=== PATIENT | male | born 1965 | race Caucasian/White ===

== ENCOUNTER 2020-11-06 12:20 | Outpatient (REF) | payer OTHER, SELFPAY ==
[2020-11-06 14:14] LABS: Estimated Average Glucose 126 mg/dL
[2020-11-06 14:39] LABS: Alanine Aminotransferase 27 U/L (0-40); Albumin Level 4.7 g/dL (3.5-5.0); Alkaline Phosphatase 89 U/L (39-117); Anion Gap 14 (12-20); Aspartate Amino Transferase 17 U/L (5-37); Bilirubin Total 0.2 mg/dL (0.0-1.0); Blood Urea Nitrogen 15 mg/dL (9-16); Calcium 9.5 mg/dL (8.4-10.2); Carbon Dioxide 26 mmol/L (22-29); Chloride 102 mmol/L (96-108); Cholesterol 141 mg/dL; Estimated Glomerular Filt Rate > 60; Glucose Fasting 101 mg/dL (60-99); HDL Cholesterol 49 mg/dL; LDL Cholesterol Calculated 74 mg/dl; Potassium 4.5 mmol/L (3.3-5.1); Sodium 137 mmol/L (135-145); Total Protein 7.4 g/dL (6.5-8.0); Triglycerides 91 mg/dL
== END 2020-11-06 12:21 | disposition home or self-care (01) ==
LOC: HO.LAB 12:20
PROVIDERS: PCP Internal Medicine; Visit Provider Internal Medicine
DX: E11.9 Type 2 diabetes mellitus without complications (principal); D75.89 Other specified diseases of blood and blood-forming organs; E78.5 Hyperlipidemia, unspecified
CPT/HCPCS: 36415; 80053; 80061; 83036

== ENCOUNTER 2021-06-14 08:39 | Day surgery (SDC) | payer OTHER, SELFPAY ==
--- NOTE | 2021-06-13 10:51 | HO.ANESPROP2 ---
Documented by User: Vivi Aguilar NP 06/13/21 10:51 HPI - Anesthesia Eval Consult details Narrative: 55yo M for Colonoscopy PMFSH Active Problems Active Problems: All Active Problems (Updated 06/07/21 @ 13:18 by Alaina Long, ALIA) Obesity, Class I, BMI 30.0-34.9 (see actual BMI) (Acute) Obese (Acute) Paranoid schizophrenia (Acute) Pure hypercholesterolemia (Acute) Essential hypertension (Acute) Diabetes mellitus (Acute) Past Medical History Medical History Diabetes mellitus Essential hypertension History of iron deficiency anemia Hx of colonic polyps Obese Obesity, Class I, BMI 30.0-34.9 (see actual BMI) Paranoid schizophrenia Pure hypercholesterolemia Family History Family History Father No problems noted. Mother No problems noted. Maternal Grandmother No problems noted. Maternal Grandfather No problems noted. Paternal Grandmother No problems noted. Paternal Grandmother No problems noted. Surgical History Surgical History History of nasal surgery History of oral surgery Hx of colonoscopy Social History Social History Housing: Apartment Patient Tobacco Use Status: Never used Tobacco e-Cigarette/Vaping Use: Never Used Second Hand Smoke Exposure: No Use of substances other than those prescribed or required for medical reasons: No Are you DNR?: No Advance Directives: No Advance Directives Information Provided: Yes Recently lost weight without trying: No Nutrition Risks: No Nutritional Risk service: No Current occupational status: disabled Meds Allergies Allergy/AdvReac Type Severity Reaction Status Date / Time simvastatin [SIMVASTATIN] Allergy Intermediate INCREASES Verified 06/07/21 13:19 LIVER ENZYMES, increase liver enzymes divalproex sodium AdvReac Intermediate BLOATING Verified 06/07/21 13:19 [From DEPAKOTE] Home Medications Medication Instructions Recorded Confirmed Last Taken Type benztropine 1 mg tablet 1 mg PO DAILY 08/21/20 06/07/21 Unknown History buspirone 5 mg tablet 5 mg PO BID 08/21/20 06/07/21 Unknown History olanzapine 10 mg tablet 10 mg PO BID tab 08/21/20 06/07/21 Unknown History quetiapine 200 mg tablet 200 mg PO BEDTIME 08/21/20 06/07/21 Unknown History quetiapine 50 mg tablet (Seroquel) 50 mg PO BEDTIME 08/21/20 06/07/21 Unknown History oxcarbazepine 600 mg tablet 600 mg PO BID 12/18/20 06/07/21 Unknown History topiramate 25 mg tablet 25 mg PO BID 04/24/21 06/07/21 Unknown History topiramate 100 mg tablet 1 tab PO BEDTIME 06/07/21 06/07/21 Unknown History Exam Exam Date and Time: June 13, 2021 105 Assessment and Plan Assessment Anesthesia Assessment: Chart Reviewed Documented by User: Jessica Welch MD 06/14/21 09:19 [facility] Past Medical History Medical History Diabetes mellitus Essential hypertension History of iron deficiency anemia Hx of colonic polyps Obese Obesity, Class I, BMI 30.0-34.9 (see actual BMI) Paranoid schizophrenia Pure hypercholesterolemia Functional capacity: independent ambulation Family History Family History Father No problems noted. Mother No problems noted. Maternal Grandmother No problems noted. Maternal Grandfather No problems noted. Paternal Grandmother No problems noted. Paternal Grandmother No problems noted. Family history of problems with anesthesia: No Surgical History Surgical History History of nasal surgery History of oral surgery Hx of colonoscopy History of Problems with Anesthesia: No Social History Social History Housing: Apartment Patient Tobacco Use Status: Never used Tobacco e-Cigarette/Vaping Use: Never Used Second Hand Smoke Exposure: No Use of substances other than those prescribed or required for medical reasons: No Are you DNR?: No Advance Directives: No Advance Directives Information Provided: Yes Recently lost weight without trying: No Nutrition Risks: No Nutritional Risk service: No Current occupational status: disabled Meds Allergies Allergy/AdvReac Type Severity Reaction Status Date / Time simvastatin [SIMVASTATIN] Allergy Intermediate INCREASES Verified 06/07/21 13:19 LIVER ENZYMES, increase liver enzymes divalproex sodium AdvReac Intermediate BLOATING Verified 06/07/21 13:19 [From DEPAKOTE] Home Medications Medication Instructions Recorded Confirmed Last Taken Type benztropine 1 mg tablet 1 mg PO DAILY 08/21/20 06/07/21 Unknown History buspirone 5 mg tablet 5 mg PO BID 08/21/20 06/07/21 Unknown History olanzapine 10 mg tablet 10 mg PO BID tab 08/21/20 06/07/21 Unknown History quetiapine 200 mg tablet 200 mg PO BEDTIME 08/21/20 06/07/21 Unknown History quetiapine 50 mg tablet (Seroquel) 50 mg PO BEDTIME 08/21/20 06/07/21 Unknown History oxcarbazepine 600 mg tablet 600 mg PO BID 12/18/20 06/07/21 Unknown History topiramate 25 mg tablet 25 mg PO BID 04/24/21 06/07/21 Unknown History topiramate 100 mg tablet 1 tab PO BEDTIME 06/07/21 06/07/21 Unknown History Exam Airway Mallampati Class: III TM Dist: >3cm Neck ROM: Full Heart: RRR Lungs: CTAt Assessment and Plan Final Anesthetic Review Family History of Problems with Anesthesia: No History of Problems with Anesthesia: No
[2021-06-14 08:53] VITALS: BMI 28.7
[2021-06-14 09:10] VITALS: BP 118/82; PULSE 107; RESP 16; TEMP 36.4; O2SAT 93
[2021-06-14 09:12] LABS: Glucose, Whole Blood 164 mg/dL (60-115)
--- NOTE | 2021-06-14 09:15 | PC.NURSE ---
1200.00 and wallet sent to security
[2021-06-14] MEDS: Lactated Ringers 1,000 ML 100 ML IVCONT (09:24)
[2021-06-14 10:57] VITALS: BP 109/72; PULSE 87; RESP 16; TEMP 36.2; O2SAT 97
--- NOTE | 2021-06-14 10:58 | P.BOP_ITS ---
Brief Operative Note Date of Service: 06/14/21 Pre-op diagnosis: Screening Post-op diagnosis: other (Colon polyps) Procedure: Colonoscopy to the cecum and TI with bx/removal of polyps, and hot and cold snare polypectomies. Surgeon: Torres Olmos Anesthesia: MAC Was an Insurance Plan Specialist used for this Procedure?: No Estimated blood loss (mL): 4.0 Pathology: other (A. Polyps along ICV B. Ascending colon polyps C. Transverse colon polyp) Condition: stable Disposition: PACU
--- NOTE | 2021-06-14 11:03 | HO.ANESPROP2 ---
FORM[facility]LY [facility], LATER [facility] Active Problems Active Problems: All Active Problems (Updated 06/07/21 @ 13:18 by Alaina Long RN) Obesity, Class I, BMI 30.0-34.9 (see actual BMI) (Acute) Obese (Acute) Paranoid schizophrenia (Acute) Pure hypercholesterolemia (Acute) Essential hypertension (Acute) Diabetes mellitus (Acute) Past Medical History Medical History Diabetes mellitus Essential hypertension History of iron deficiency anemia Hx of colonic polyps Obese Obesity, Class I, BMI 30.0-34.9 (see actual BMI) Paranoid schizophrenia Pure hypercholesterolemia Functional capacity: independent ambulation Family History Family History Father No problems noted. Mother No problems noted. Maternal Grandmother No problems noted. Maternal Grandfather No problems noted. Paternal Grandmother No problems noted. Paternal Grandmother No problems noted. Family history of problems with anesthesia: No Surgical History Surgical History History of nasal surgery History of oral surgery Hx of colonoscopy History of Problems with Anesthesia: No Social History Social History Housing: Apartment Patient Tobacco Use Status: Never used Tobacco e-Cigarette/Vaping Use: Never Used Second Hand Smoke Exposure: No Use of substances other than those prescribed or required for medical reasons: No Are you DNR?: No Advance Directives: No Advance Directives Information Provided: Yes Recently lost weight without trying: No Nutrition Risks: No Nutritional Risk service: No Current occupational status: disabled Meds Allergies Allergy/AdvReac Type Severity Reaction Status Date / Time simvastatin [SIMVASTATIN] Allergy Intermediate INCREASES Verified 06/07/21 13:19 LIVER ENZYMES, increase liver enzymes divalproex sodium AdvReac Intermediate BLOATING Verified 06/07/21 13:19 [From DEPAKOTE] Active Medications: Current Medications Lactated Ringer's (Lr) 1,000 mls @ 100 mls/hr IVCONT .Q10H THEODORE Last Admin: 06/14/21 09:24 Dose: 100 mls/hr Documented by: Sodium Biphosphate/Sodium Phosphate (Sodium Phosphate,Osborne-Dibasic 133 Ml Enema) 133 ml VT ONCE PRN PRN Reason: Poor Colonoscopy Prep Results Home Medications Medication Instructions Recorded Confirmed Last Taken Type benztropine 1 mg tablet 1 mg PO DAILY 08/21/20 06/07/21 Unknown History buspirone 5 mg tablet 5 mg PO BID 08/21/20 06/07/21 Unknown History olanzapine 10 mg tablet 10 mg PO BID tab 08/21/20 06/07/21 Unknown History quetiapine 200 mg tablet 200 mg PO BEDTIME 08/21/20 06/07/21 Unknown History quetiapine 50 mg tablet (Seroquel) 50 mg PO BEDTIME 08/21/20 06/07/21 Unknown History oxcarbazepine 600 mg tablet 600 mg PO BID 12/18/20 06/07/21 Unknown History topiramate 25 mg tablet 25 mg PO BID 04/24/21 06/07/21 Unknown History topiramate 100 mg tablet 1 tab PO BEDTIME 06/07/21 06/07/21 Unknown History Exam Exam Date and Time: June 14, 2021 1103 Height,Weight and Vital Signs: Height 5 ft 10 in Weight 90.718 kg Last Vital Signs Temp 97.2 F 06/14/21 10:57 Pulse 87 06/14/21 10:57 Resp 16 06/14/21 10:57 BP 109/72 06/14/21 10:57 Pulse Ox 97 06/14/21 10:57 Pertinent Lab Results Pertinent Lab Results: Laboratory Tests 06/14/21 09:08 POC Glucose 164 H Assessment and Plan Final Anesthetic Review Family History of Problems with Anesthesia: No History of Problems with Anesthesia: No
[2021-06-14 11:12] VITALS: BP 113/82; PULSE 84; RESP 16; TEMP 36.2; O2SAT 96
--- NOTE | 2021-06-14 13:59 | HO.POSTANES ---
Post Anesthesia Evaluation Post Anesthesia Evaluation Vital Signs: Vital Signs Temp Pulse Resp BP Pulse Ox 06/14/21 11:12 97.2 F 84 16 113/82 96 06/14/21 10:57 97.2 F 87 16 109/72 97 06/14/21 09:10 97.6 F 107 H 16 118/82 93 Anesthesia: Monitored Mental Status: Awake Pain Control: Satisfactory Nausea/Vomiting: None Hydration: Adequate Anesthesia-Related Issues: No Anes. Related Issues
--- NOTE | 2021-06-14 21:30 | OP_ITS ---
SURGEON: Torres Olmos MD INDICATIONS: The patient presents for evaluation of personal history of tubular adenoma of the colon and colorectal cancer screening. Full consent has been obtained from him for this, including risks of bleeding and perforation. PREOPERATIVE DIAGNOSIS: POSTOPERATIVE DIAGNOSIS: PROCEDURE PERFORMED: Colonoscopy to the cecum and terminal ileum with snare polypectomy, and biopsy and removal of polyps. ESTIMATED BLOOD LOSS: COMPLICATIONS: ANESTHESIA: Monitored anesthesia care. ASSISTANTS: SPECIMENS: PREOPERATIVE DIAGNOSES: Colorectal cancer screening and personal history of tubular adenoma of the colon. POSTOPERATIVE DIAGNOSES: Colorectal cancer screening and personal history of tubular adenoma of the colon, colon polyps, diverticulosis and internal hemorrhoids. DESCRIPTION OF PROCEDURE: The patient was placed in the left lateral decubitus position. The digital rectal exam revealed no abnormalities. The Olympus video pediatric colonoscope was entered into the rectum and advanced easily to the cecum. Once in the cecum, I did identify normal-appearing cecal pouch with appendiceal orifice and a normal-appearing ileocecal valve. The terminal ileum was cannulated and appeared normal. Scope was withdrawn back in the colon. There was transillumination of light deep in the right lower quadrant. The entire cecum and ileocecal valve appeared normal. The scope was slowly withdrawn assessing all mucosal surfaces carefully. Preparation was excellent. Along the ileocecal valve, were 3 flat less than 5 mm polyps, which were each biopsied and completely removed with cold biopsy forceps and placed in the same container. In the proximal ascending colon, was a flat approximately 10 to 12 mm polyp, which was snared in piecemeal fashion and then recovered by suction. The polypectomy site appeared clean, without any sign of residual polyp nor bleeding. In the more distal ascending colon, was a flat approximately 5 or 6 mm polyp, which was removed with the cold snare completely, but not recovered. The polypectomy site appeared clean and there was no sign of any bleeding. In the transverse colon, was a flat approximately 4 mm polyp, which was biopsied and completely removed with cold biopsy forceps. In the more distal transverse colon, was a flat approximately 12 mm grossly adenomatous polyp, which was snared and removed, but not recovered. The polypectomy site appeared clean, without any sign of residual polyp nor bleeding. I did not visualize any other polyps, colitis, nor angiodysplasia. There was a moderate amount of sigmoid diverticulosis. In the rectum, scope was retroflexed visualizing internal hemorrhoids, but no other pathology. The rectal mucosa appeared normal. The scope was straightened out and withdrawn from the patient. He tolerated the procedure well and was returned to the recovery area in stable condition. IMPRESSION: 1. Colon polyps, status post biopsy and removal, hot snare polypectomy, and cold snare polypectomy. 2. Diverticulosis. 3. Internal hemorrhoids. PLAN: The results of the pathology will be checked. Given his history, I would recommend a repeat colonoscopy in 2 years. He was advised not to use any aspirin and NSAIDs for at least 1 week. The 2-day prep worked very well and he will have to do that again on the next colonoscopy. MD TRENTON Haile/DOUGIE / [id number]
== END 2021-06-14 12:00 | disposition home or self-care (01) ==
PROVIDERS: PCP Student in an Organized Health Care Education/Training Program; Visit Provider Internal Medicine
PROC: 0DJD8ZZ Inspection of Lower Intestinal Tract, Via Natural or Artificial Opening Endoscopic (ICD-10-PCS; CPT 45378; principal; 2021-06-14 09:50)
DX: Z12.11 Encounter for screening for malignant neoplasm of colon (principal); Z86.010 Personal history of colon polyps; D12.0 Benign neoplasm of cecum; D12.2 Benign neoplasm of ascending colon; D12.3 Benign neoplasm of transverse colon; K57.30 Diverticulosis of large intestine without perforation or abscess without bleeding; K64.8 Other hemorrhoids; F20.0 Paranoid schizophrenia; I10 Essential (primary) hypertension; E11.9 Type 2 diabetes mellitus without complications; Z79.84 Long term (current) use of oral hypoglycemic drugs; Z79.899 Other long term (current) drug therapy
CPT/HCPCS: 45385; 45380; 82947; 88305

== ENCOUNTER 2022-01-09 10:51 | Outpatient (REF) | payer OTHER, SELFPAY ==
[2022-01-09 11:40] LABS: MANUAL DIFF FLAG NO
[2022-01-09 12:09] LABS: Basophils Percent Auto 0.5 % (0-2); Eosinophils Absolute Auto 0.1 X10*3/uL (0.0-0.4); Eosinophils Percent Auto 1.2 % (0-4); Hematocrit 41.9 % (42.0-52.0); Hemoglobin 13.4 g/dl (14.0-18.0); Imm Gran Abs Auto 0.04 X10*3/uL (0.00-0.03); Imm Gran Pct Auto 0.7 % (0.0-0.4); Lymphocytes Absolute Auto 1.6 X10*3/uL (1.2-4.9); Lymphocytes Percent Auto 28.8 % (20-40); Mean Corpuscular Hemoglobin 27.2 pg (27.0-33.0); Mean Corpuscular Volume 85.2 fL (80.0-98.0); Mean Platelet Volume 9.7 fL (9.4-12.4); Monocytes Absolute Auto 0.5 X10*3/uL (0.1-1.2); Monocytes Percent Auto 8.3 % (2-11); Neutrophils Absolute Auto 3.4 x10*3/uL (2.0-8.3); Neutrophils Percent Auto 60.5 % (45-73); Platelet Count 283 X10*3/uL (160-400); Red Blood Count 4.92 X10*6/uL (4.60-5.80); Red Cell Distribution Width 14.4 % (11.0-16.0); White Blood Count 5.7 X10*3/uL (4.8-10.8)
[2022-01-09 12:14] LABS: Estimated Average Glucose 134 mg/dL; Hemoglobin A1c % 6.3 %
[2022-01-09 12:39] LABS: Alanine Aminotransferase 27 U/L (0-40); Albumin Level 4.4 g/dL (3.5-5.0); Alkaline Phosphatase 90 U/L (39-117); Anion Gap 14 (12-20); Aspartate Amino Transferase 19 U/L (5-37); Bilirubin Total 0.3 mg/dL (0.0-1.0); Blood Urea Nitrogen 19 mg/dL (9-16); Calcium 9.6 mg/dL (8.4-10.2); Carbon Dioxide 21 mmol/L (22-29); Chloride 110 mmol/L (96-108); Cholesterol 153 mg/dL; Estimated Glomerular Filt Rate > 60; Glucose Fasting 127 mg/dL (60-99); HDL Cholesterol 41 mg/dL; LDL Cholesterol Calculated 94 mg/dl; Potassium 4.6 mmol/L (3.3-5.1); Sodium 140 mmol/L (135-145); Total Protein 7.2 g/dL (6.5-8.0); Triglycerides 92 mg/dL
[2022-01-09 12:41] LABS: Thyroid Stimulating Hormone 0.79 uIU/mL (0.32-4.0)
[2022-01-14 14:22] LABS: Vitamin D 25-OH, D2 <4 ng/mL; Vitamin D 25-OH, D3 15 ng/mL; Vitamin D 25-OH, Total 15 ng/mL (30-100)
== END 2022-01-09 10:52 | disposition home or self-care (01) ==
LOC: HO.LAB 10:51
PROVIDERS: PCP Internal Medicine; Visit Provider Internal Medicine
DX: E11.40 Type 2 diabetes mellitus with diabetic neuropathy, unspecified (principal); E78.00 Pure hypercholesterolemia, unspecified; E55.9 Vitamin D deficiency, unspecified; E78.5 Hyperlipidemia, unspecified; E66.9 Obesity, unspecified
CPT/HCPCS: 36415; 80053; 80061; 82306; 83036; 84443; 85025

== ENCOUNTER 2022-01-29 13:40 | Outpatient (REF) | payer OTHER, SELFPAY ==
[2022-01-29 14:29] LABS: Creatinine Urine 145.82 mg/dL; Microalbum/Creatinine Ratio Ur 4.1 ug/mg cr
== END 2022-01-29 13:41 | disposition home or self-care (01) ==
LOC: HO.LNP 13:40
PROVIDERS: Visit Provider Internal Medicine
DX: E11.9 Type 2 diabetes mellitus without complications (principal)
CPT/HCPCS: 82043

== ENCOUNTER 2022-10-27 10:54 | Outpatient (REF) | payer OTHER, SELFPAY ==
[2022-10-27 11:04] LABS: MANUAL DIFF FLAG NO
[2022-10-27 12:10] LABS: Basophils Percent Auto 0.8 % (0-2); Eosinophils Absolute Auto 0.1 X10*3/uL (0.0-0.4); Eosinophils Percent Auto 1.5 % (0-4); Hematocrit 43.4 % (42.0-52.0); Hemoglobin 14.3 g/dl (14.0-18.0); Imm Gran Abs Auto 0.01 X10*3/uL (0.00-0.03); Imm Gran Pct Auto 0.2 % (0.0-0.4); Lymphocytes Absolute Auto 1.8 X10*3/uL (1.2-4.9); Lymphocytes Percent Auto 34.3 % (20-40); Mean Corpuscular HGB Conc 32.9 g/dl (31.0-36.0); Mean Corpuscular Hemoglobin 28.3 pg (27.0-33.0); Mean Corpuscular Volume 85.9 fL (80.0-98.0); Mean Platelet Volume 9.6 fL (9.4-12.4); Monocytes Absolute Auto 0.5 X10*3/uL (0.1-1.2); Monocytes Percent Auto 8.8 % (2-11); Neutrophils Absolute Auto 2.9 x10*3/uL (2.0-8.3); Neutrophils Percent Auto 54.4 % (45-73); Platelet Count 285 X10*3/uL (160-400); Red Blood Count 5.05 X10*6/uL (4.60-5.80); Red Cell Distribution Width 14.4 % (11.0-16.0); White Blood Count 5.3 X10*3/uL (4.8-10.8)
[2022-10-27 13:02] LABS: Alanine Aminotransferase 39 U/L (0-40); Albumin Level 4.5 g/dL (3.5-5.0); Alkaline Phosphatase 91 U/L (39-117); Anion Gap 12 (12-20); Aspartate Amino Transferase 23 U/L (5-37); Bilirubin Total 0.5 mg/dL (0.0-1.0); Blood Urea Nitrogen 17 mg/dL (9-16); Calcium 9.1 mg/dL (8.4-10.2); Carbon Dioxide 21 mmol/L (22-29); Chloride 110 mmol/L (96-108); Cholesterol 173 mg/dL; Estimated Glomerular Filt Rate > 60; Glucose Fasting 126 mg/dL (60-99); HDL Cholesterol 46 mg/dL; Iron 94 mcg/dL (45-160); LDL Cholesterol Calculated 110 mg/dl; Percent Iron Saturation 24 % (15-50); Potassium 4.4 mmol/L (3.3-5.1); Sodium 139 mmol/L (135-145); Total Iron Binding Capacity 396 mcg/dL (228-428); Total Protein 7.3 g/dL (6.5-8.0); Triglycerides 85 mg/dL; Unsaturated Iron Binding 302 ug/dL; Vitamin D 25-OH Total 24.7 ng/mL (>30)
[2022-10-27 13:19] LABS: Creatinine Urine 77.01 mg/dL; Microalbumin Urine < 5.0 mg/L
== END 2022-10-27 10:55 | disposition home or self-care (01) ==
LOC: HO.LAB 10:54
PROVIDERS: PCP Internal Medicine; Visit Provider Internal Medicine
DX: E55.9 Vitamin D deficiency, unspecified (principal); D64.9 Anemia, unspecified; E78.5 Hyperlipidemia, unspecified; E11.9 Type 2 diabetes mellitus without complications
CPT/HCPCS: 36415; 80053; 80061; 82043; 82306; 83540; 85025

== ENCOUNTER 2022-11-14 07:54 | Day surgery (SDC) | payer OTHER, SELFPAY ==
--- NOTE | 2022-11-13 13:17 | HO.ANESPROP2 ---
Documented by User: Vivi Aguilar NP 11/13/22 13:18 HPI - Anesthesia Eval Consult details Narrative: 57yo M for Colonoscopy PMFSH Active Problems Active Problems: All Active Problems (Updated 06/26/22 @ 13:41 by Krissy Engel MD) Hypovitaminosis D (Acute) Obesity, Class I, BMI 30.0-34.9 (see actual BMI) (Acute) Obese (Acute) Paranoid schizophrenia (Acute) Pure hypercholesterolemia (Acute) Essential hypertension (Acute) Diabetes mellitus (Acute) Past Medical History Medical History Diabetes mellitus Essential hypertension History of iron deficiency anemia Hx of colonic polyps Obese Obesity, Class I, BMI 30.0-34.9 (see actual BMI) Paranoid schizophrenia Pure hypercholesterolemia Family History Family History Father No problems noted. Mother No problems noted. Maternal Grandmother No problems noted. Maternal Grandfather No problems noted. Paternal Grandmother No problems noted. Paternal Grandmother No problems noted. Family history of problems with anesthesia: No Surgical History Surgical History History of nasal surgery History of oral surgery Hx of colonoscopy History of Problems with Anesthesia: No Social History Social History Housing: Apartment Alcohol intake: former Patient Tobacco Use Status: Never used Tobacco e-Cigarette/Vaping Use: Never Used Second Hand Smoke Exposure: No Are you DNR?: No Advance Directives: No Advance Directives Information Provided: Yes Nutrition Risks: No Nutritional Risk service: No Current occupational status: disabled Cognitive needs: No Hearing needs: No Vision needs: Yes Meds Allergies Allergy/AdvReac Type Severity Reaction Status Date / Time simvastatin [SIMVASTATIN] Allergy Intermediate INCREASES Verified 10/29/22 13:43 LIVER ENZYMES, increase liver enzymes divalproex sodium AdvReac Intermediate BLOATING Verified 10/29/22 13:43 [From DEPAKOTE] metformin AdvReac Mild abdominal Verified 10/29/22 13:43 bloating Home Medications Medication Instructions Recorded Confirmed Last Taken Type benztropine 1 mg tablet 1 mg PO DAILY 08/21/20 10/29/22 11/14/22 History buspirone 5 mg tablet 5 mg PO BID 08/21/20 10/29/22 11/14/22 History olanzapine 10 mg tablet 10 mg PO BID 08/21/20 10/29/22 11/14/22 History quetiapine 200 mg tablet 200 mg PO BEDTIME 08/21/20 10/29/22 11/13/22 History quetiapine 50 mg tablet (Seroquel) 50 mg PO BEDTIME 08/21/20 10/29/22 11/14/22 History oxcarbazepine 600 mg tablet 600 mg PO BID 12/18/20 10/29/22 11/14/22 History topiramate 25 mg tablet 25 mg PO BID 04/24/21 10/29/22 11/14/22 History topiramate 100 mg tablet 1 tab PO BEDTIME 06/07/21 10/29/22 11/13/22 History Exam Exam Date and Time: November 13, 20221316 Pertinent Lab Results Pertinent Lab Results: Laboratory Tests 10/27/22 10/27/22 11:03 11:03 WBC 5.3 Hgb 14.3 Hct 43.4 Plt Count 285 Sodium 139 Potassium 4.4 Chloride 110 H Carbon Dioxide 21 L BUN 17 H Creatinine 0.91 Assessment and Plan Assessment Anesthesia Assessment: Chart Reviewed Final Anesthetic Review Family History of Problems with Anesthesia: No History of Problems with Anesthesia: No Documented by User: Jagdish Lockhart MD 11/17/22 14:25 HPI - Anesthesia Eval Consult details Narrative: 57yo M for Colonoscopy Severe Anxiety PMFSH Past Medical History Medical History Diabetes mellitus Essential hypertension History of iron deficiency anemia Hx of colonic polyps Obese Obesity, Class I, BMI 30.0-34.9 (see actual BMI) Paranoid schizophrenia Pure hypercholesterolemia Functional capacity: independent ambulation Family History Family History Father No problems noted. Mother No problems noted. Maternal Grandmother No problems noted. Maternal Grandfather No problems noted. Paternal Grandmother No problems noted. Paternal Grandmother No problems noted. Surgical History Surgical History History of nasal surgery History of oral surgery Hx of colonoscopy Social History Social History Housing: Apartment Alcohol intake: former Patient Tobacco Use Status: Never used Tobacco e-Cigarette/Vaping Use: Never Used Second Hand Smoke Exposure: No Are you DNR?: No Advance Directives: No Advance Directives Information Provided: Yes Nutrition Risks: No Nutritional Risk service: No Current occupational status: disabled Cognitive needs: No Hearing needs: No Vision needs: Yes Meds Allergies Allergy/AdvReac Type Severity Reaction Status Date / Time simvastatin [SIMVASTATIN] Allergy Intermediate INCREASES Verified 10/29/22 13:43 LIVER ENZYMES, increase liver enzymes divalproex sodium AdvReac Intermediate BLOATING Verified 10/29/22 13:43 [From DEPAKOTE] metformin AdvReac Mild abdominal Verified 10/29/22 13:43 bloating Home Medications Medication Instructions Recorded Confirmed Last Taken Type benztropine 1 mg tablet 1 mg PO DAILY 08/21/20 10/29/22 11/14/22 History buspirone 5 mg tablet 5 mg PO BID 08/21/20 10/29/22 11/14/22 History olanzapine 10 mg tablet 10 mg PO BID 08/21/20 10/29/22 11/14/22 History quetiapine 200 mg tablet 200 mg PO BEDTIME 08/21/20 10/29/22 11/13/22 History quetiapine 50 mg tablet (Seroquel) 50 mg PO BEDTIME 08/21/20 10/29/22 11/14/22 History oxcarbazepine 600 mg tablet 600 mg PO BID 12/18/20 10/29/22 11/14/22 History topiramate 25 mg tablet 25 mg PO BID 04/24/21 10/29/22 11/14/22 History topiramate 100 mg tablet 1 tab PO BEDTIME 06/07/21 10/29/22 11/13/22 History Exam Airway Mallampati Class: IV TM Dist: >3cm Neck ROM: Full Loose/Missing/Broken Teeth: Yes (Chipped left upper ) Heart: S1,S2 Lungs: distant breath sounds Assessment and Plan Assessment Anesthesia Assessment: Anesthesia Plan Discussed Final Anesthetic Review NPO: Yes ASA Class: III Final Preanesthetic Review: Meds/Allgs Chart Reviewed, Consent Obtained/Reviewed and Anes Risks/Benef Reviewed Patient Risk: Intermediate Procedure Risk: Intermediate Anesthetic Plan Anesthetic Plan: MAC: Disposition: Standard PACU
[2022-11-14 07:51] VITALS: BMI 34.9
[2022-11-14 08:01] VITALS: BP 132/76; PULSE 108; RESP 20; TEMP 36.6; O2SAT 96; BMI 35.9
[2022-11-14 08:13] LABS: Glucose, Whole Blood 182 mg/dL (60-115)
[2022-11-14] MEDS: Lactated Ringers 1,000 ML 100 ML IVCONT (08:33)
--- NOTE | 2022-11-14 10:08 | PM.OP ---
Brief Operative Note Date of Service: 11/14/22 Pre-op diagnosis: Screening Post-op diagnosis: other (Polyps) Procedure: Colonoscopy to the cecum and TI with cold snare polypectomy and bx/removal of polyps Surgeon: Torres Olmos Anesthesia: MAC Was an Property Maintenance Supervisor used for this Procedure?: No Estimated blood loss (mL): 2.0 Pathology: other (A. Ascending colon polyps B. Transverse colon polyps) Condition: stable Disposition: PACU
[2022-11-14 10:09] VITALS: BP 102/71; PULSE 97; RESP 15; TEMP 36.2; O2SAT 95
[2022-11-14 10:24] VITALS: BP 114/78; PULSE 82; RESP 16; TEMP 36.2; O2SAT 95
--- NOTE | 2022-11-14 11:15 | OP_ITS ---
SURGEON: Torres Olmos MD INDICATIONS: The patient presents for followup of colorectal cancer screening and personal history of tubular adenomas of the colon. Full consent has been obtained from him for this, including risks of bleeding and perforation. PREOPERATIVE DIAGNOSIS: POSTOPERATIVE DIAGNOSIS: PROCEDURE PERFORMED: Colonoscopy to the cecum and terminal ileum with biopsy and removal of polyps, and cold snare polypectomy. ESTIMATED BLOOD LOSS: COMPLICATIONS: ANESTHESIA: Monitored anesthesia care. ASSISTANTS: SPECIMENS: PREOPERATIVE DIAGNOSES: Colorectal cancer screening and personal history of colon polyps. POSTOPERATIVE DIAGNOSES: Colorectal cancer screening and personal history of colon polyps, colon polyps, diverticulosis and internal hemorrhoids. DESCRIPTION OF PROCEDURE: The patient was placed in the left lateral decubitus position. The digital rectal exam revealed no abnormalities. The Olympus video pediatric colonoscope was then entered into the rectum and advanced to the cecum with assistance of abdominal wall pressure. Once in the cecum, I did identify normal-appearing cecal pouch with appendiceal orifice and normal-appearing ileocecal valve. The terminal ileum was cannulated and appeared normal. The scope was withdrawn back in the colon. The entire cecum was well visualized and appeared normal. The ileocecal valve appeared normal. The scope was then slowly withdrawn assessing all mucosal surfaces carefully. For the most part, preparation was excellent after his two-day prep although there was still some residual stool which had to be irrigated and suctioned away as best as possible. In the ascending colon, there was a 3 mm polyp which was biopsied and completely removed with the cold biopsy forceps. Also in the ascending colon, there was a flat approximately 6 mm polyp which was removed by cold snare polypectomy. The polypectomy site appeared clean, without any sign of residual polyp nor any significant bleeding. The specimen was recovered by suction. In the transverse colon, there were two flat, less than 5 mm polyps, which were each biopsied and completely removed with a cold biopsy forceps. I did not visualize any other polyps, colitis, nor angiodysplasia. There was a moderate amount of diverticulosis in the sigmoid and descending colon. In the rectum, the scope was retroflexed visualizing internal hemorrhoids, but no other pathology. The rectal mucosa appeared normal. The scope was straightened and withdrawn from the patient. He tolerated the procedure well and was returned to the recovery area in stable condition. IMPRESSION: 1. Colon polyps. 2. Diverticulosis. 3. Internal hemorrhoids. PLAN: The results of the pathology will be checked. Given his history, I would recommend a repeat colonoscopy in 2-3 years. He will otherwise see me on a p.r.n. basis. He was advised not to use any aspirin and NSAIDs for 1 week. MD TRENTON Haile/DOUGIE / [id number] MTDD
== END 2022-11-14 10:50 | disposition home or self-care (01) ==
PROVIDERS: PCP Internal Medicine; Visit Provider Internal Medicine
PROC: 0DJD8ZZ Inspection of Lower Intestinal Tract, Via Natural or Artificial Opening Endoscopic (ICD-10-PCS; CPT 45378; principal; 2022-11-14 09:00)
DX: Z12.11 Encounter for screening for malignant neoplasm of colon (principal); Z86.010 Personal history of colon polyps; D12.2 Benign neoplasm of ascending colon; D12.3 Benign neoplasm of transverse colon; K57.30 Diverticulosis of large intestine without perforation or abscess without bleeding; K64.8 Other hemorrhoids; I10 Essential (primary) hypertension; E11.9 Type 2 diabetes mellitus without complications; E78.5 Hyperlipidemia, unspecified; F20.0 Paranoid schizophrenia; R74.8 Abnormal levels of other serum enzymes; E66.9 Obesity, unspecified; Z68.35 Body mass index [BMI] 35.0-35.9, adult; Z79.84 Long term (current) use of oral hypoglycemic drugs; Z79.899 Other long term (current) drug therapy
CPT/HCPCS: 45385; 45380; 82947; 88305

== ENCOUNTER 2023-03-27 11:27 | Outpatient (REF) | payer OTHER, SELFPAY ==
[2023-03-27 12:31] LABS: Albumin Level 4.5 g/dL (3.5-5.0); Alkaline Phosphatase 111 U/L (39-117); Anion Gap 17 (12-20); Aspartate Amino Transferase 21 U/L (5-37); Bilirubin Total 0.4 mg/dL (0.0-1.0); Blood Urea Nitrogen 17 mg/dL (9-16); Calcium 9.8 mg/dL (8.4-10.2); Carbon Dioxide 18 mmol/L (22-29); Chloride 108 mmol/L (96-108); Cholesterol 136 mg/dL; Estimated Glomerular Filt Rate > 60; Glucose Fasting 126 mg/dL (60-99); HDL Cholesterol 44 mg/dL; LDL Cholesterol Calculated 78 mg/dl; Potassium 4.3 mmol/L (3.3-5.1); Sodium 139 mmol/L (135-145); Total Protein 7.7 g/dL (6.5-8.0); Triglycerides 73 mg/dL
[2023-03-27 12:49] LABS: Alanine Aminotransferase 33 U/L (0-40); Vitamin D 25-OH Total 31.6 ng/mL (>30)
== END 2023-03-27 11:28 | disposition home or self-care (01) ==
LOC: HO.LAB 11:27
PROVIDERS: PCP Internal Medicine; Visit Provider Internal Medicine
DX: E11.9 Type 2 diabetes mellitus without complications (principal); E55.9 Vitamin D deficiency, unspecified; E78.5 Hyperlipidemia, unspecified
CPT/HCPCS: 36415; 80053; 80061; 82306

== ENCOUNTER 2023-03-30 12:10 | Outpatient (REF) | payer OTHER, SELFPAY ==
[2023-03-30 16:55] LABS: Creatinine Urine 110.96 mg/dL; Microalbumin Urine < 5.0 mg/L
== END 2023-03-30 12:11 | disposition home or self-care (01) ==
LOC: HO.LAB 12:10
PROVIDERS: PCP Internal Medicine; Visit Provider Internal Medicine
DX: E11.9 Type 2 diabetes mellitus without complications (principal)
CPT/HCPCS: 82043

== ENCOUNTER 2023-03-31 12:58 | Outpatient (AMB) | payer OTHER, SELFPAY ==
--- NOTE | 2023-03-31 13:01 | MHC.PC.OV ---
Vital Signs 03/31/23 13:03 Height 5 ft 10 in Weight 251 lb BMI 36.0 BP 112/78 Blood Pressure Location Lt brachial Position Sitting Intake Visit Reasons: 5m F/U DM Intake Note: Patient here for a 5 month follow up DM Channel Opener Required: No Accompanied by: Self / Same As Patient Allergies simvastatin [SIMVASTATIN] Allergy (Intermediate, Verified 03/31/23 13:22) INCREASES LIVER ENZYMES, increase liver enzymes divalproex sodium [From DEPAKOTE] Adverse Reaction (Intermediate, Verified 03/31/23 13:22) BLOATING metformin Adverse Reaction (Mild, Verified 03/31/23 13:22) abdominal bloating Medication List - Last Reconciled 03/31/23 by Krissy Engel MD atorvastatin 80 mg PO BEDTIME 90 days benztropine 1 mg PO DAILY blood sugar diagnostic (FreeStyle Lite Strips) 1 strip miscellaneous BID buspirone 5 mg PO BID cholecalciferol (vitamin D3) 50 mcg PO DAILY 90 days [diabetic shoes As directed ] dicyclomine 20 mg PO TID 90 days lancets Use 1 lancet twice a day lisinopril 20 mg PO DAILY 90 days olanzapine 10 mg PO BID oxcarbazepine 600 mg PO BID pioglitazone (Actos) 45 mg PO DAILY 90 days quetiapine (Seroquel) 50 mg PO BEDTIME quetiapine 200 mg PO BEDTIME semaglutide 7 mg PO DAILY 90 days topiramate 1 tab PO BEDTIME topiramate 25 mg PO BID Tobacco use date assessed: 10/29/22 Dental Screening Dental Screen Date: 03/31/23 Did you have a dental visit in the last 12 months?: No Did you have a dental problem in the last 6 months where you did not have access to dental care?: No Was dental information given to patient?: Patient has dentist HPI HPI Comments History of Present Illness Details This is a 57-year-old male with diabetes mellitus type 2, hypertension, hyperlipidemia and paranoid schizophrenia that comes today for follow-up on his conditions. A1c within goal. Blood pressure stable. LDL close to goal. Paranoid schizophrenia is follow by Psychiatry and has been stable. Denies any chest pain or shortness of breath. Compliant with medications. Last colonoscopy was 2022 showing tubular adenoma. [facility] Medical History Diabetes mellitus Essential hypertension History of iron deficiency anemia Hx of colonic polyps Obese Obesity, Class I, BMI 30.0-34.9 (see actual BMI) Paranoid schizophrenia Pure hypercholesterolemia Surgical History History of nasal surgery History of oral surgery Hx of colonoscopy Family History Father No problems noted. Mother No problems noted. Maternal Grandmother No problems noted. Maternal Grandfather No problems noted. Paternal Grandmother No problems noted. Paternal Grandmother No problems noted. Social History Housing: Apartment Alcohol intake: former Patient Tobacco Use Status: Never used Tobacco e-Cigarette/Vaping Use: Never Used Second Hand Smoke Exposure: No service: No Current occupational status: disabled Cognitive needs: No Hearing needs: No Vision needs: Yes Questionnaire Thrive Questionnaire Date Thrive assessed: 10/29/22 ILYA-7 AMB Questionnaire ILYA-7 Date ILYA - 7 assessed: 10/29/22 Source: Developed by Drs. Torres Alarcon, Carline Quiñones, Umang Tinajero and colleagues, with an educational gianni from [employer]. Review of Systems Const All systems reviewed & are unremarkable except as noted in HPI and below Eyes Reports no additional complaints, Denies change in vision and Denies other visual disturbances Card Denies chest pain at rest, Denies chest pain with activity, Denies edema, Denies irregular heart rhythm, Denies claudication, Denies dyspnea, Denies dyspnea on exertion, Denies orthopnea, Denies paroxysmal nocturnal dyspnea and Denies slow heart rate Resp Denies cough, Denies dyspnea and Denies dyspnea on exertion GI Denies abdominal pain, Denies change in bowel habits, Denies excessive flatus, Denies nausea and Denies vomiting Denies urinary hesitancy, Denies urinary incontinence and Denies urinary urgency Musc Denies abnormal gait, Denies atrophy, Denies deformity and Denies limited range of motion Skin/Breast Denies bleeding lesions, Denies changing lesions and Denies rash Neuro Denies abnormal gait and Denies lack of coordination Physical exam (Primary Care) Vital Signs: Last Vital Signs BP 112/78 03/31/23 13:03 BMI result Body Mass Index 36.0 Tobacco/Smoking Status: Tobacco use Status Tobacco use date assessed 10/29/22 03/31/23 13:02 Patient Tobacco Use Status Never used Tobacco 03/31/23 13:02 e-Cigarette/Vaping Use Never Used 03/31/23 13:02 Thrive Assessment: Date of Thrive Assessment Date Thrive assessed 10/29/22 03/31/23 13:02 Eyes General: appearance normal, both eyes and all related structures Eyelids: Yes eyelids normal Conjunctivae: conjunctivae normal Neck Neck: Yes normal visual inspection and Yes supple Resp Effort & Inspection: normal respiratory effort Auscultation: clear to auscultation bilaterally Cardio Jugular venous distension: no JVD Rate: regular rate Rhythm: regular rhythm Heart sounds: S1 normal heart sound present and S2 normal heart sound present Extrem General: Yes full ROM Results AMB Hemoglobin A1c AMB Hemoglobin A1c 6.2 % Last Edit by LATRELL Viera on 03/31/23 13:20 Results Reviewed Results Reviewed: Laboratory Last Values Hgb A1c (Clinic) 6.2 % (4.0-6.0) H 03/31/23 13:02 Assessment and Plan Assessment & Plan (1) Diabetes mellitus: Code(s): E11.9 - Type 2 diabetes mellitus without complications Qualifiers: Diabetes mellitus type: type 2 Diabetes mellitus correction insulin use: without correction use Diabetes mellitus complication status: without complication Qualified Code(s): E11.9 - Type 2 diabetes mellitus without complications Plan: Continue Actos and Rybelsus. A1c goal is equal or less than 7% (2) Essential hypertension: Code(s): I10 - Essential (primary) hypertension Plan: Continue lisinopril. Blood pressure goal is equal or less than 130/80. (3) Pure hypercholesterolemia: Code(s): E78.00 - Pure hypercholesterolemia, unspecified Plan: Continue statins. LDL goal is less than 70. (4) Paranoid schizophrenia: Code(s): F20.0 - Paranoid schizophrenia Plan: Continue olanzapine. Follow-up with psychiatry. Orders: Orders Lipid Panel 5 Months E78.5 - Hyperlipidemia, unspecified Microalbumin, Random (w Creat) 5 Months E11.9 - Type 2 diabetes mellitus without complications Vitamin D 25-OH Total 5 Months E55.9 - Vitamin D deficiency, unspecified Comprehensive [place]. 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
[2023-03-31 13:03] VITALS: BP 112/78; BMI 36.0
== END 2023-03-31 13:39 | disposition home or self-care (01) ==
PROVIDERS: Visit Provider Internal Medicine
DX: E11.9 Type 2 diabetes mellitus without complications (principal); I10 Essential (primary) hypertension; E78.00 Pure hypercholesterolemia, unspecified; F20.0 Paranoid schizophrenia
CPT/HCPCS: 83036; 99214

== ENCOUNTER 2023-10-08 13:34 | Outpatient (AMB) | payer OTHER, SELFPAY ==
[2023-10-08 13:55] VITALS: BP 110/70; BMI 36.6
--- NOTE | 2023-10-08 13:55 | MHC.PC.OV ---
Vital Signs 10/08/23 13:55 Height 5 ft 10 in Weight 255 lb BMI 36.6 BP 110/70 Blood Pressure Location Lt brachial Position Sitting Intake Visit Reasons: Follow up DM Intake Note: Patient here for a follow up DM Sack Repairer Required: No Accompanied by: Self / Same As Patient Allergies simvastatin [SIMVASTATIN] Allergy (Intermediate, Verified 10/08/23 14:13) INCREASES LIVER ENZYMES, increase liver enzymes divalproex sodium [From DEPAKOTE] Adverse Reaction (Intermediate, Verified 10/08/23 14:13) BLOATING metformin Adverse Reaction (Mild, Verified 10/08/23 14:13) abdominal bloating Medication List - Last Reconciled 10/08/23 by Krissy Engel MD atorvastatin 80 mg PO BEDTIME 90 days benztropine 1 mg PO DAILY blood sugar diagnostic (FreeStyle Lite Strips) 1 strip miscellaneous BID buspirone 5 mg PO BID cholecalciferol (vitamin D3) 50 mcg PO DAILY 90 days [diabetic shoes As directed ] dicyclomine 20 mg PO TID 90 days lancets Use 1 lancet twice a day lisinopril 20 mg PO DAILY 90 days olanzapine 10 mg PO BID oxcarbazepine 600 mg PO BID pioglitazone (Actos) 45 mg PO DAILY 90 days quetiapine (Seroquel) 50 mg PO BEDTIME quetiapine 200 mg PO BEDTIME semaglutide 7 mg PO DAILY 90 days topiramate 1 tab PO BEDTIME topiramate 25 mg PO BID Tobacco use date assessed: 10/08/23 Dental Screening Dental Screen Date: 10/08/23 Did you have a dental visit in the last 12 months?: Yes Did you have a dental problem in the last 6 months where you did not have access to dental care?: No Was dental information given to patient?: Patient has dentist HPI HPI Comments History of Present Illness Details This is a 58-year-old male with diabetes mellitus type 2, hypertension, pure hypercholesterolemia and paranoid schizophrenia that comes today for follow-up on his conditions. A1c within goal. Blood pressure stable. LDL within goal. Paranoid schizophrenia stable with medications and this is follow by Psychiatry. Denies any chest pain or shortness of breath. Compliant with medications. [facility] Medical History Hx of colonic polyps History of iron deficiency anemia Obesity, Class I, BMI 30.0-34.9 (see actual BMI) Obese Paranoid schizophrenia Pure hypercholesterolemia Essential hypertension Diabetes mellitus Surgical History Hx of colonoscopy History of oral surgery History of nasal surgery Family History Father No problems noted. Mother No problems noted. Maternal Grandmother No problems noted. Maternal Grandfather No problems noted. Paternal Grandmother No problems noted. Paternal Grandmother No problems noted. Social History Housing: Apartment Alcohol intake: former Patient Tobacco Use Status: Never used Tobacco e-Cigarette/Vaping Use: Never Used Second Hand Smoke Exposure: No service: No Current occupational status: disabled Cognitive needs: No Hearing needs: No Vision needs: Yes Questionnaire PHQ-9 Over the last 2 weeks, how often have you been bothered by any of the following problems? 1. Little interest or pleasure in doing things: not at all 2. Feeling down, depressed, or hopeless: nearly every day 3. Trouble falling or staying asleep, or sleeping too much: not at all 4. Feeling tired or having little energy: several days 5. Poor appetite or overeating: not at all 6. Feeling bad about yourself - or that you are a failure or have let yourself or your family down: not at all 7. Trouble concentrating on things, such as reading the newspaper or watching television: not at all 8. Moving or speaking so slowly that other people could have noticed. Or the opposite - being so fidgety or restless that you have been moving around a lot more than usual: not at all 9. Thoughts that you would be better off or of hurting yourself in some way: not at all Total score: 4 Depression Screening Interpretation: Negative Depression Screening Done: Yes 19208 - PHQ-9 Billing: Yes Source: Developed by Drs. Torres Alarcon, Carline Quiñones, Umang Tinajero and colleagues, with an educational gianni from [employer]. Thrive Questionnaire Date Thrive assessed: 10/08/23 I am a: Patient What is your living situation today?: I have a steady place to live Within the past 12 months, did the food you bought not last and you didn't have the money to get more?: Never true Within the past 12 months, did you worry whether your food would run out before you got money to buy more?: Never true Do you have trouble paying for medicines?: No Do you have trouble getting transportation to medical appointments?: No Do you have trouble paying your heating and electricity bill?: No Do you have trouble taking care of your child, family member or friend?: No Do you have trouble with day-to-day activities such as bathing, preparing meals, shopping, managing finances, etc.?: No Are you currently unemployed and looking for a job?: No Are you interested in more education?: No Please select the resources that you would like help with: None Currently or been in a relationship where the following occur: no concerns reported THRIVE Score: 0 AUDIT C Alcohol Use Questionnaire (AUDIT-C) 1. How often do you have a drink containing alcohol?: Never Total Score: 0 ILYA-7 AMB Questionnaire ILYA-7 Date ILYA - 7 assessed: 10/08/23 Feeling nervous, anxious, or on edge: 3 = Nearly every day Not being able to stop or control worryin = Not at all Worrying too much about different things: 0 = Not at all Trouble relaxin = Not at all Being so restless that it is hard to sit still: 0 = Not at all Becoming easily annoyed or irritable: 0 = Not at all Feeling afraid as if something awful might happen: 3 = Nearly every day Total ILYA-7 score (0-4 normal; 5-9 mild; 10-14 moderate; 15-21 severe): 6 Source: Developed by Drs. Torres Alarcon, Carline Quiñones, Umang Tinajero and colleagues, with an educational gianni from [employer]. ILYA-7 Assessment Billing ILYA-7 Assessment Tool: ILYA-7 Assessment 04149 Review of Systems Const All systems reviewed & are unremarkable except as noted in HPI and below Eyes Reports no additional complaints, Denies change in vision and Denies other visual disturbances Card Denies chest pain at rest, Denies chest pain with activity, Denies edema, Denies irregular heart rhythm, Denies claudication, Denies dyspnea, Denies dyspnea on exertion, Denies orthopnea, Denies paroxysmal nocturnal dyspnea and Denies slow heart rate Resp Denies cough, Denies dyspnea and Denies dyspnea on exertion GI Denies abdominal pain, Denies change in bowel habits, Denies excessive flatus, Denies nausea and Denies vomiting Denies urinary hesitancy, Denies urinary incontinence and Denies urinary urgency Musc Denies abnormal gait, Denies atrophy, Denies deformity and Denies limited range of motion Skin/Breast Denies bleeding lesions, Denies changing lesions and Denies rash Neuro Denies abnormal gait, Denies behavioral changes and Denies lack of coordination Psych Denies behavioral changes Physical exam (Primary Care) Vital Signs: Last Vital Signs BP 110/70 10/08/23 13:55 BMI result Body Mass Index 36.6 Tobacco/Smoking Status: Tobacco use Status Tobacco use date assessed 10/08/23 10/08/23 14:00 Patient Tobacco Use Status Never used Tobacco 10/08/23 14:00 e-Cigarette/Vaping Use Never Used 10/08/23 14:00 PHQ-9: PHQ-9 Score PHQ-9: Total score 4 10/08/23 14:16 Depression Screening Interpretation: Negative Thrive Assessment: Date of Thrive Assessment Date Thrive assessed 10/08/23 10/08/23 14:00 Currently or been in a relationship where the following occur: no concerns reported Eyes General: appearance normal, both eyes and all related structures Eyelids: Yes eyelids normal Conjunctivae: conjunctivae normal Neck Neck: Yes normal visual inspection and Yes supple Resp Effort & Inspection: normal respiratory effort Auscultation: clear to auscultation bilaterally Cardio Jugular venous distension: no JVD Rate: regular rate Rhythm: regular rhythm Heart sounds: S1 normal heart sound present and S2 normal heart sound present Extrem General: Yes full ROM Results AMB Hemoglobin A1c AMB Hemoglobin A1c 6.6 % Last Edit by LATRELL Viera on 10/08/23 14:13 Results Reviewed Results Reviewed: Laboratory Last Values Hgb A1c (Clinic) 6.6 % (4.0-6.0) H 10/08/23 13:55 Assessment and Plan Assessment & Plan (1) Diabetes mellitus: Code(s): E11.9 - Type 2 diabetes mellitus without complications Qualifiers: Diabetes mellitus type: type 2 Diabetes mellitus exterminator insulin use: without exterminator use Diabetes mellitus complication status: without complication Qualified Code(s): E11.9 - Type 2 diabetes mellitus without complications Plan: Continue Actos and stomach low diet. A1c goal is equal or less than 7%. (2) Essential hypertension: Code(s): I10 - Essential (primary) hypertension Plan: Continue lisinopril. Blood pressure goal is equal or less than 130/80. (3) Pure hypercholesterolemia: Code(s): E78.00 - Pure hypercholesterolemia, unspecified Plan: Continue statins. LDL goal is less than 70. (4) Paranoid schizophrenia: Code(s): F20.0 - Paranoid schizophrenia Plan: Continue benztropine. Follow-up with psychiatry. Orders: Orders Microalbumin, Random (w Creat) 4 Months E11.9 - Type 2 diabetes mellitus without complications Vitamin D 25-OH Total 4 Months E55.9 - Vitamin D deficiency, unspecified AMB Hemoglobin A1c Today E11.9 - Type 2 diabetes mellitus without complications Lipid Panel 4 Months E78.5 - Hyperlipidemia, unspecified Comprehensive [place]. Panel Fast 4 Months E11.9 - Type 2 diabetes mellitus without complications Medications: Refilled semaglutide 7 mg PO DAILY 90 days 90 tabs 1RF E11.9 - Type 2 diabetes mellitus without complications Coding Level of Care Code Est Pt Level 4 (33168) Diagnoses Type 2 diabetes mellitus without complication, without long-term current use of insulin E11.9 Diabetes mellitus type: type 2 Diabetes mellitus exterminator insulin use: without exterminator use Diabetes mellitus complication status: without complication Essential hypertension I10 Pure hypercholesterolemia E78.00 Paranoid schizophrenia F20.0 Additional Codes ILYA-7 Assessment Billing - ILYA-7 Assessment Tool: ILYA-7 Assessment 94817 ([id number]) Time Spent (min) 22
== END 2023-10-08 14:21 | disposition home or self-care (01) ==
PROVIDERS: PCP Internal Medicine; Visit Provider Internal Medicine
DX: E11.9 Type 2 diabetes mellitus without complications (principal); F20.0 Paranoid schizophrenia; I10 Essential (primary) hypertension; E78.00 Pure hypercholesterolemia, unspecified
CPT/HCPCS: 83036; 99214

== ENCOUNTER 2024-03-07 13:27 | Outpatient (AMB) | payer OTHER, SELFPAY ==
[2024-03-07 13:28] VITALS: BP 110/68; PULSE 80; O2SAT 97; BMI 36.6
--- NOTE | 2024-03-07 13:28 | MHC.PC.OV ---
Vital Signs 03/07/24 13:28 Height 5 ft 10 in Weight 255 lb BMI 36.6 BP 110/68 Blood Pressure Location Lt brachial Position Sitting Pulse 80 Pulse Source Pulse Oximeter Pulse Oximetry (%) 97 Oxygen Delivery Method Room Air Intake Visit Reasons: pe Intake Note: Patient is here today for a physical. 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: No Accompanied by: Self / Same As Patient Allergies simvastatin [SIMVASTATIN] Allergy (Intermediate, Verified 03/07/24 13:43) INCREASES LIVER ENZYMES, increase liver enzymes divalproex sodium [From DEPAKOTE] Adverse Reaction (Intermediate, Verified 03/07/24 13:43) BLOATING metformin Adverse Reaction (Mild, Verified 03/07/24 13:43) abdominal bloating Medication List - Last Reconciled 03/07/24 by Krissy Engel MD atorvastatin 80 mg PO BEDTIME 90 days benztropine 1 mg PO DAILY blood sugar diagnostic (FreeStyle Lite Strips) 1 strip miscellaneous BID buspirone 5 mg PO BID cholecalciferol (vitamin D3) 50 mcg PO DAILY 90 days [diabetic shoes As directed ] dicyclomine 20 mg PO TID 90 days lancets Use 1 lancet twice a day lisinopril 20 mg PO DAILY 90 days olanzapine 10 mg PO BID oxcarbazepine 600 mg PO BID pioglitazone (Actos) 45 mg PO DAILY 90 days quetiapine (Seroquel) 50 mg PO BEDTIME quetiapine 200 mg PO BEDTIME semaglutide 7 mg PO DAILY 90 days topiramate 1 tab PO BEDTIME topiramate 25 mg PO BID Tobacco use date assessed: 10/08/23 Dental Screening Dental Screen Date: 03/07/24 Did you have a dental visit in the last 12 months?: Yes Did you have a dental problem in the last 6 months where you did not have access to dental care?: No Was dental information given to patient?: Patient has dentist HPI HPI Comments History of Present Illness Details This is a 58-year-old male with paranoid schizophrenia, mild major depression and diabetes mellitus type 2 that comes for his physical exam. Paranoid schizophrenia and mild major depression are follow by Psychiatry and well controlled with medications. Last colonoscopy was 2022 showing tubular adenomas. A1c within goal. No acute complaint. [facility] Medical History (Updated 03/07/24 @ 20:11 by Krissy Engel MD) Hx of colonic polyps History of iron deficiency anemia Obesity, Class I, BMI 30.0-34.9 (see actual BMI) Obese Paranoid schizophrenia Pure hypercholesterolemia Essential hypertension Diabetes mellitus Surgical History Hx of colonoscopy History of oral surgery History of nasal surgery Family History (Updated 03/07/24 @ 13:50 by Krissy Engel MD) Father Lung cancer Mother Diabetes mellitus Maternal Grandmother No problems noted. Maternal Grandfather No problems noted. Paternal Grandmother No problems noted. Paternal Grandmother No problems noted. Social History (Updated 03/07/24 @ 13:51 by Krissy Engel MD) Housing: Apartment Alcohol intake: current Alcohol intake frequency: a few times a month Alcohol type: wine Patient Tobacco Use Status: Never used Tobacco e-Cigarette/Vaping Use: Never Used Second Hand Smoke Exposure: No service: No Current occupational status: disabled Cognitive needs: No Hearing needs: No Vision needs: Yes Questionnaire PHQ-9 Over the last 2 weeks, how often have you been bothered by any of the following problems? 1. Little interest or pleasure in doing things: not at all 2. Feeling down, depressed, or hopeless: nearly every day 3. Trouble falling or staying asleep, or sleeping too much: not at all 4. Feeling tired or having little energy: several days 5. Poor appetite or overeating: not at all 6. Feeling bad about yourself - or that you are a failure or have let yourself or your family down: not at all 7. Trouble concentrating on things, such as reading the newspaper or watching television: not at all 8. Moving or speaking so slowly that other people could have noticed. Or the opposite - being so fidgety or restless that you have been moving around a lot more than usual: not at all 9. Thoughts that you would be better off or of hurting yourself in some way: not at all Total score: 4 Depression Screening Interpretation: Positive Depression Screening Follow-up: Existing condition, In treatment, Community Mental Health Worker F/U and Follow-up Visit Requested Depression Screening Done: Yes 58765 - PHQ-9 Billing: Yes Source: Developed by Drs. Torres Alarcon, Carline Quiñones, Umang Tinajero and colleagues, with an educational gianni from [employer]. Thrive Questionnaire Date Thrive assessed: 10/08/23 AUDIT C Alcohol Use Questionnaire (AUDIT-C) 1. How often do you have a drink containing alcohol?: Monthly or less 2. How many drinks containing alcohol do you have on a typical day when you are drinking?: 1 or 2 3. How often do you have six or more drinks on one occasion?: Never Total Score: 1 Score Reviewed/Action Taken: No ILYA-7 AMB Questionnaire ILYA-7 Date ILYA - 7 assessed: 10/08/23 Feeling nervous, anxious, or on edge: 3 = Nearly every day Not being able to stop or control worryin = Not at all Worrying too much about different things: 0 = Not at all Trouble relaxin = Not at all Being so restless that it is hard to sit still: 0 = Not at all Becoming easily annoyed or irritable: 0 = Not at all Feeling afraid as if something awful might happen: 3 = Nearly every day Total ILYA-7 score (0-4 normal; 5-9 mild; 10-14 moderate; 15-21 severe): 6 Source: Developed by Drs. Torres Alarcon, Carline Quiñones, Umang Tinajero and colleagues, with an educational gianni from [employer]. ILYA-7 Assessment Billing ILYA-7 Assessment Tool: ILYA-7 Assessment 31127 Review of Systems Const All systems reviewed & are unremarkable except as noted in HPI and below Card Denies chest pain at rest, Denies chest pain with activity, Denies edema, Denies irregular heart rhythm, Denies claudication, Denies dyspnea, Denies dyspnea on exertion, Denies orthopnea, Denies paroxysmal nocturnal dyspnea and Denies slow heart rate Resp Denies cough, Denies dyspnea and Denies dyspnea on exertion Neuro Denies lack of coordination Physical exam (Primary Care) Vital Signs: Last Vital Signs Pulse 80 03/07/24 13:28 BP 110/68 03/07/24 13:28 Pulse Ox 97 03/07/24 13:28 Oxygen Delivery Method Room Air 03/07/24 13:28 BMI result Body Mass Index 36.6 Tobacco/Smoking Status: Tobacco use Status Tobacco use date assessed 10/08/23 03/07/24 13:29 Patient Tobacco Use Status Never used Tobacco 03/07/24 13:51 e-Cigarette/Vaping Use Never Used 03/07/24 13:51 PHQ-9: PHQ-9 Score PHQ-9: Total score 4 03/07/24 13:52 Depression Screening Interpretation: Positive Depression Screening Follow-up: Existing condition, In treatment, Community Mental Health Worker F/U and Follow-up Visit Requested Thrive Assessment: Date of Thrive Assessment Date Thrive assessed 10/08/23 03/07/24 13:29 Const Orientation/consciousness: patient oriented x3 HENMT Head: Yes normal to inspection, Yes normocephalic and Yes atraumatic Ears: external ears normal Eyes General: appearance normal, both eyes and all related structures Eyelids: Yes eyelids normal Conjunctivae: conjunctivae normal Neck Neck: Yes normal visual inspection and Yes supple Resp Effort & Inspection: normal respiratory effort Auscultation: clear to auscultation bilaterally Cardio Jugular venous distension: no JVD Rate: regular rate Rhythm: regular rhythm Heart sounds: S1 normal heart sound present and S2 normal heart sound present GI Inspection: Yes normal to inspection Palpation (GI): Soft to palpation and nontender Auscultation: normal bowel sounds Skin General skin exam: no rashes or lesions noted Neuro General: patient oriented x3 and no focal motor deficits Extrem General: Yes full ROM Psych Appearance: grossly normal Results AMB Hemoglobin A1c AMB Hemoglobin A1c 6.1 % Last Edit by LATRELL Haile on 03/07/24 13:43 Results Reviewed Results Reviewed: Laboratory Last Values Hgb A1c (Clinic) 6.1 % (4.0-6.0) H 03/07/24 13:23 Assessment and Plan Assessment & Plan (1) Physical exam: Code(s): Z00.00 - Encounter for general adult medical examination without abnormal findings Plan: Repeat in a year. (2) Mild major depression: Code(s): F32.0 - Major depressive disorder, single episode, mild Plan: Continue Seroquel. Follow-up with psychiatry. (3) Paranoid schizophrenia: Code(s): F20.0 - Paranoid schizophrenia Plan: Continue Seroquel. Follow-up with psychiatry. (4) Diabetes mellitus: Code(s): E11.9 - Type 2 diabetes mellitus without complications Qualifiers: Diabetes mellitus type: type 2 Diabetes mellitus business development assistant insulin use: without business development assistant use Diabetes mellitus complication status: without complication Qualified Code(s): E11.9 - Type 2 diabetes mellitus without complications Plan: Continue Actos and rybelsus. A1c goal is equal or less than 7%. Orders: Orders AMB Hemoglobin A1c Today E11.9 - Type 2 diabetes mellitus without complications Coding Level of Care Code Est Pt Prev Care 40-64y(05119) Diagnoses Physical exam Z00.00 Mild major depression F32.0 Paranoid schizophrenia F20.0 Type 2 diabetes mellitus without complication, without long-term current use of insulin E11.9 Diabetes mellitus type: type 2 Diabetes mellitus retirement insulin use: without business development assistant use Diabetes mellitus complication status: without complication Additional Codes ILYA-7 Assessment Billing - ILYA-7 Assessment Tool: ILYA-7 Assessment 44435 ([id number]) Time Spent (min) 32
== END 2024-03-07 14:07 | disposition home or self-care (01) ==
PROVIDERS: PCP Internal Medicine; Visit Provider Internal Medicine
DX: Z00.00 Encounter for general adult medical examination without abnormal findings (principal); F32.0 Major depressive disorder, single episode, mild; F20.0 Paranoid schizophrenia; E11.9 Type 2 diabetes mellitus without complications
CPT/HCPCS: 83036; 99396

== ENCOUNTER 2024-11-10 15:53 | Outpatient (AMB) | payer OTHER, SELFPAY ==
--- NOTE | 2024-11-10 16:04 | MHC.PC.OV ---
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 Apprentice Required: No Accompanied by: Self / Same As Patient Allergies simvastatin [SIMVASTATIN] Allergy (Intermediate, Verified 11/10/24 16:23) INCREASES LIVER ENZYMES, increase liver enzymes divalproex sodium [From DEPAKOTE] Adverse Reaction (Intermediate, Verified 11/10/24 16:23) BLOATING metformin Adverse Reaction (Mild, Verified 11/10/24 16:23) abdominal bloating Medication List - Last Reconciled 11/10/24 by Krissy Engel MD atorvastatin 80 mg PO BEDTIME 90 days benztropine 1 mg PO DAILY blood sugar diagnostic (FreeStyle Lite Strips) 1 strip miscellaneous BID buspirone 5 mg PO BID cholecalciferol (vitamin D3) 50 mcg PO DAILY 90 days [diabetic shoes As directed ] dicyclomine 20 mg PO TID 90 days lancets Use 1 lancet twice a day lancets (OneTouch Delica Plus Lancet) Testing once a day as needed lisinopril 20 mg PO DAILY 90 days olanzapine 10 mg PO BID oxcarbazepine 600 mg PO BID pioglitazone (Actos) 45 mg PO DAILY 90 days quetiapine (Seroquel) 50 mg PO BEDTIME quetiapine 200 mg PO BEDTIME semaglutide 14 mg PO DAILY 90 days topiramate 1 tab PO BEDTIME topiramate 25 mg PO BID Tobacco use date assessed: 11/10/24 Dental Screening Dental Screen Date: 11/10/24 Did you have a dental visit in the last 12 months?: Yes Did you have a dental problem in the last 6 months where you did not have access to dental care?: No Was dental information given to patient?: Patient has dentist HPI HPI Comments History of Present Illness Details The patient is a 59-year-old male presenting for a routine follow-up of his chronic medical conditions. He has a history of Type 2 Diabetes Mellitus. Recent measurements indicate his A1c at an excellent level of 0.6%, and his blood glucose is typically in the 140s at home. He reports stable blood pressure, likely due to his current antihypertensive regimen, primarily lisinopril. He also has a diagnosis of Hyperlipidemia, managed with atorvastatin. Although specific results were not discussed, his conditions appear to be stable under current treatment. His psychiatric conditions include Schizophrenia, Generalized Anxiety Disorder, and Depression, for which he is on medications such as olanzapine, Seroquel, buspirone, and oxcarbazepine. These conditions are managed by his psychiatrist, with no recent exacerbations reported. [facility] Medical History (Updated 03/07/24 @ 20:11 by Krissy Engel MD) Hx of colonic polyps History of iron deficiency anemia Obesity, Class I, BMI 30.0-34.9 (see actual BMI) Obese Paranoid schizophrenia Pure hypercholesterolemia Essential hypertension Diabetes mellitus Surgical History Hx of colonoscopy History of oral surgery History of nasal surgery Family History Father Lung cancer Mother Diabetes mellitus Maternal Grandmother No problems noted. Maternal Grandfather No problems noted. Paternal Grandmother No problems noted. Paternal Grandmother No problems noted. Social History Housing: Apartment Alcohol intake: current Alcohol intake frequency: a few times a month Alcohol type: wine Patient Tobacco Use Status: Never used Tobacco e-Cigarette/Vaping Use: Never Used Second Hand Smoke Exposure: No service: No Current occupational status: disabled Cognitive needs: No Hearing needs: No Vision needs: Yes Questionnaire PHQ-9 Over the last 2 weeks, how often have you been bothered by any of the following problems? 1. Little interest or pleasure in doing things: not at all 2. Feeling down, depressed, or hopeless: several days 3. Trouble falling or staying asleep, or sleeping too much: several days 4. Feeling tired or having little energy: several days 5. Poor appetite or overeating: not at all 6. Feeling bad about yourself - or that you are a failure or have let yourself or your family down: not at all 7. Trouble concentrating on things, such as reading the newspaper or watching television: not at all 8. Moving or speaking so slowly that other people could have noticed. Or the opposite - being so fidgety or restless that you have been moving around a lot more than usual: not at all 9. Thoughts that you would be better off or of hurting yourself in some way: not at all Total score: 3 Depression Screening Interpretation: Positive Depression Screening Follow-up: Existing condition, In treatment, Community Mental Health Worker F/U and Follow-up Visit Requested Depression Screening Done: Yes 04060 - PHQ-9 Billing: Yes Source: Developed by Drs. Torres Alarcon, Carline Quiñones, Umang Tinajero and colleagues, with an educational gianni from [employer]. Thrive Questionnaire Date Thrive assessed: 11/10/24 I am a: Patient What is your living situation today?: I have a steady place to live Within the past 12 months, did the food you bought not last and you didn't have the money to get more?: Never true Within the past 12 months, did you worry whether your food would run out before you got money to buy more?: Never true Do you have trouble paying for medicines?: No Do you have trouble getting transportation to medical appointments?: No Do you have trouble paying your heating and electricity bill?: No Do you have trouble taking care of your child, family member or friend?: No Do you have trouble with day-to-day activities such as bathing, preparing meals, shopping, managing finances, etc.?: No Are you currently unemployed and looking for a job?: No Are you interested in more education?: No Please select the resources that you would like help with: None Currently or been in a relationship where the following occur: No concerns reported THRIVE Score: 0 AUDIT C Alcohol Use Questionnaire (AUDIT-C) 1. How often do you have a drink containing alcohol?: Monthly or less 2. How many drinks containing alcohol do you have on a typical day when you are drinking?: 1 or 2 3. How often do you have six or more drinks on one occasion?: Never Total Score: 1 Score Reviewed/Action Taken: No ILYA-7 AMB Questionnaire ILYA-7 Date ILYA - 7 assessed: 11/10/24 Feeling nervous, anxious, or on edge: 1 = Several days Not being able to stop or control worryin = Not at all Worrying too much about different things: 0 = Not at all Trouble relaxin = Not at all Being so restless that it is hard to sit still: 0 = Not at all Becoming easily annoyed or irritable: 0 = Not at all Feeling afraid as if something awful might happen: 0 = Not at all Total ILYA-7 score (0-4 normal; 5-9 mild; 10-14 moderate; 15-21 severe): 1 Source: Developed by Drs. Torres Alarcon, Carline Quiñones, Umang Tinajero and colleagues, with an educational gianni from [employer]. ILYA-7 Assessment Billing ILYA-7 Assessment Tool: ILYA-7 Assessment 57726 Review of Systems Const All systems reviewed & are unremarkable except as noted in HPI and below Card Denies chest pain at rest, Denies chest pain with activity, Denies edema, Denies irregular heart rhythm, Denies claudication, Denies dyspnea, Denies dyspnea on exertion, Denies orthopnea, Denies paroxysmal nocturnal dyspnea and Denies slow heart rate Resp Denies cough, Denies dyspnea and Denies dyspnea on exertion Physical exam (Primary Care) Vital Signs: Last Vital Signs BP 118/70 11/10/24 16:05 BMI result Body Mass Index 36.4 BMI Assessment/Plan discussion: High BMI High, discussed plan: lifestyle, weight reduction, dietary and physical activity Tobacco/Smoking Status: Tobacco use Status Tobacco use date assessed 11/10/24 11/10/24 16:11 Patient Tobacco Use Status Never used Tobacco 11/10/24 16:11 e-Cigarette/Vaping Use Never Used 11/10/24 16:11 PHQ-9: PHQ-9 Score PHQ-9: Total score 3 11/10/24 16:26 Depression Screening Interpretation: Positive Depression Screening Follow-up: Existing condition, In treatment, Community Mental Health Worker F/U and Follow-up Visit Requested Thrive Assessment: Date of Thrive Assessment Date Thrive assessed 11/10/24 11/10/24 16:11 Currently or been in a relationship where the following occur: No concerns reported Resp Effort & Inspection: normal respiratory effort Auscultation: clear to auscultation bilaterally Cardio Jugular venous distension: no JVD Rate: regular rate Rhythm: regular rhythm Heart sounds: S1 normal heart sound present and S2 normal heart sound present Extrem General: Yes full ROM Results AMB Hemoglobin A1c AMB Hemoglobin A1c 6.6 % Last Edit by LATRELL Viera on 11/10/24 16:21 Results Reviewed Results Reviewed: Laboratory Last Values Hgb A1c (Clinic) 6.6 % (4.0-6.0) H 11/10/24 16:04 Coding Level of Care Code Est Pt Level 4 (82604) Complex EM visit Add On G2211 Diagnoses Mild major depression F32.0 Paranoid schizophrenia F20.0 Type 2 diabetes mellitus without complication, without long-term current use of insulin E11.9 Diabetes mellitus type: type 2 Diabetes mellitus lobsterman insulin use: without residential use Diabetes mellitus complication status: without complication Essential hypertension I10 Pure hypercholesterolemia E78.00 Additional Codes ILYA-7 Assessment Billing - ILYA-7 Assessment Tool: ILYA-7 Assessment 96253 ([id number]) PHQ-9 - 42448 - PHQ-9 Billing: Yes ([id number]) Time Spent (min) 22 Assessment & Plan Assessment & Plan (1) Mild major depression: Code(s): F32.0 - Major depressive disorder, single episode, mild Category: Medical (2) Paranoid schizophrenia: Code(s): F20.0 - Paranoid schizophrenia Category: Medical (3) Diabetes mellitus: Code(s): E11.9 - Type 2 diabetes mellitus without complications Category: Medical Qualifiers: Diabetes mellitus type: type 2 Diabetes mellitus residential insulin use: without residential use Diabetes mellitus complication status: without complication Qualified Code(s): E11.9 - Type 2 diabetes mellitus without complications (4) Essential hypertension: Code(s): I10 - Essential (primary) hypertension Category: Medical (5) Pure hypercholesterolemia: Code(s): E78.00 - Pure hypercholesterolemia, unspecified Category: Medical Plan We will maintain the current treatments for all the chronic conditions, as the patient is responding well to medications. The diabetes and hypertension management are satisfactory, with targeted A1c levels being achieved. Hyperlipidemia is controlled under the statin therapy. The psychiatric medications remain unchanged as they are effective in managing schizophrenia, anxiety, and depression. A follow-up for his labs is scheduled for February, for continued monitoring of his health status. No changes in prescriptions or lifestyle interventions are needed currently. Patient was informed and verbally consented to the use of an ambient scribe for clinic note documentation during this visit. I reiterated the importance of continued adherence to the current medication regimen as his conditions are stable. We discussed the excellent control of his diabetes indicated by a low A1c. The patient is advised to continue not smoking and to limit alcohol intake to support overall health. We reviewed the plan to have bloods drawn in February at [facility]. I encouraged him to make another appointment in February for further evaluation and reiterated the stability of the current management for his psychiatric conditions. Orders: Orders Lipid Panel 4 Months E78.5 - Hyperlipidemia, unspecified AMB Hemoglobin A1c 11/10/24 E11.9 - Type 2 diabetes mellitus without complications Microalbumin, Random (w Creat) 4 Months R80.9 - Proteinuria, unspecified Vitamin D 25-OH Total 4 Months E55.9 - Vitamin D deficiency, unspecified Comprehensive [place]. Panel Fast 4 Months Z00.00 - Encounter for general adult medical examination without abnormal findings Patient Instructions: - Continue current medications as prescribed. - Maintain low alcohol consumption, limiting to wine once a week. - Attend scheduled blood tests in February at [facility]. - Schedule a follow-up appointment for further evaluation in February. - Notify if any new symptoms occur or existing symptoms worsen.
[2024-11-10 16:05] VITALS: BP 118/70; BMI 36.4
--- OUTSIDE RECORDS SUMMARY | 2024-11-10 19:14 | XMS_ITS | Patient Health Record ---
Author Organization [facility] Address [address] [place] [address] Care Team Providers Care Sausage Stuffer Name Role Phone Krissy Morrison Primary Care Provider Torres Joyner [phone] Allergies Allergen (clinical drug ingredient) Drug/Non Drug Allergy documented on EMR Reaction Allergy Type Onset Date Status simvastatin Simvastatin Unknown Drug Allergy Act kel valproate Depakote Unknown Drug Allergy Active Reason For Referral No Information Medications Medication SIG (Take, Route, Frequency, Duration) Notes Start Date End Date Status Dicyclomine HCl Acti ve MiraLax (colon prep) 17 GM/SCOOP Use 1/2 of a 238Gm bottle mixed with Gatorade or Crystal Light 2 days before the colonoscopy, and then 1 Full 238Gm bottle mixed with Gatorade or Crystal Light the day before the colonoscopy Orally Do the 1/2 bottle 2 days before the colonoscopy, and the full bottle begin at 5:00 p.m. the day before the procedure for 2 days 09/14/2022 Active MiraLax (colon prep) 17 GM/SCOOP Use 1/2 bottle of the Miralax mixed with Gatorade two days before the colonoscopy, and then use 1 full bottle of the Miralax mixed with Gatorade or Crystal Light the day before the colonoscopy Orally Use 2 days before the colonoscopy and then begin at 5:00 p.m. the day before the procedure for 2 days 08/26/2022 Active Dulcolax (colon prep) 5 MG Take 2 Dulcol ax tablets 2 days before the colonoscopy, and then take 2 at 3:00 p.m and 2 at 7:00p.m. the day before the colonoscopy Orally 2 tablets 2 days before the colonoscopy, and then two tablets twice a day for one day before the colonoscopy for 2 days 08/26/2022 Active OXcarbazepine 300 MG 1 tablet Orally Twi ce a day for 30 day(s) 06/11/2021 Active SEROquel 25 MG 1 tablet at bedtime Orally Once a day for 30 day(s) 06/11/2021 Active OXcarbazepine 150 MG TAKE 1 TABLET BY MO UTH IN THE MORNING & TAKE 2 TABLETS IN THE EVENING Oral every am and 300 mg at bedtime Active Atorvastatin Calcium 40 MG TAKE 1 TABLET BY MOUTH DAILY Oral Once a day Active Cogentin 1 MG/ML 1 ml Injection Once a day/EPS Active Actos 30 MG 1 tablet Orally Once a day Active ZyPREXA 5 MG 1 tablet Orally Once a day for 30 day(s) 06/11/2021 Active Topamax Active Rybelsus 7 MG TAKE 1 TABLET BY BUDDY TH DAILY FOR 30 DAYS Oral for 30 Active OLANZapine 10 MG TAKE 1 TABLET BY BUDDY TH IN THE MORNING & TAKE 2 TABLETS AT BEDTIME Orally Once a day and 20 mg at bedtime Active QUEtiapine Fumarate 200 MG TAKE 1 TABLET BY MOUTH AT BEDTIME Oral at bedtime with 50 mg taking in am Active Immunizations Vaccine Route Administration Date Status Comme nts Influenza Unknown 05/31/2020 Administered Influenza Unknown 08/26/2022 Refused Social History Tobacco Use: Social History Observation Description Date Details (start date - stop date) Never Smoker NA - NA Tobacco Use/Smoking Question Answer Notes Patient is a nonsmoker Alcohol Screen Question Answer Notes Did you have a drink containing alcohol in the p ast year? No Points 0 Interpretation Negative Section Notes: Nonsmoker; no significant al cohol Nonsmoker; no significant al cohol Nonsmoker; no significant al cohol Nonsmoker; no significant al cohol Nonsmoker; no significant al cohol Problems Problem Type SNOMED Code ICD Code Onset Dates Problem Status W/U Status Risk Notes Problem 809091452 Encounter for screening for malignant neoplasm of colon (Z12.11) Active confirmed Problem 674145648 History of adenomatous polyp of colon (Z86.010) Active confirmed Problem Diverticular disease of colon (579876328) Diverticulosis of large intestine without perforation or abscess without bleeding (K57.30) Active confirmed Problem 707173412 Preprocedural examination (Z01.818) Active confirmed Problem 372715307 Elevated liver enzymes (R74.8) Active confirmed Problem 899675000857283 Pre-procedural examination (Z01.818) Active confirmed Problem Diverticulosis of colon (178912618) Diverticulosis of colon (K57.30) Active confirmed Plan Of Treatment Pending Test Test Name Order Date LIVER PROFILE 06/09/2017 IRON + IBC (FE) 06/09/2017 FERRITIN 06/09/2017 CBC w DIFF 06/09/2017 PROTHROMBIN TIME (PT, INR) 06/09/2017 HEPATITIS A,B,C PROFILE 06/09/2017 FHELC-5-VQOMIAXREUU (A1A) 06/09/2017 CERULOPLASMIN 06/09/2017 MITOCHONDRIAL AB 06/09/2017 SMOOTH MUSCLE ANTIBODIES 06/09/2017 FLUOR. ANTINUCLEAR AB SCREEN (SASHA) 05/31 Future Test Test Name Order Date COLONOSCOPY 06/09/2017 COLONOSCOPY 06/25/2018 COLONOSCOPY 01/27/2020 COLONOSCOPY 05/08/2021 COLONOSCOPY 08/26/2022 Next Appt Details Provider Name:Torres Atwood Amarilis , 02/01/2025 02:40:00 PM, [address] [place] [address], [address], [place], [address], Insurance Providers Payer Name Payer Address Payer Phone Subscriber Number Group Number Insured Name Patient Relationship to Insured Coverage Start Date Coverage End Date [facility] [address] [place] [phone] [id number] LILLIAN MAYNARD Self - patient is the insured Medical (General) History Medical History History ICD Code PARANOID SCHIZOPHRENIA HYPERTENSION NIDDM HYPERLIPIDEMIA ELEVATED LIVER ENZYMES DYSPNEA FATIGUE OBESITY Denies VA,CVA,Lung disease,renal disease Screening colonoscopy in Oct revealed multiple large polyps in the area of the cecum and ascending colon. These were ultimately removed in November 2017. The largest polyp was 3 cm in size and was a tubular adenoma. Smaller polyps were also tubular adenomas, although one was a serrated adenoma. He did have a post-polypectomy bleed from the larger polyp site, even though we did place resolution clips on it before the polypectomy. The bleeding was controlled endoscopically although he did require transfusions. Colonoscopy in 08/2018 with multiple < 10 mm adenomas removed Colonoscopy in 03/2020 with removal of po lyps--tubular adenoma Colonoscopy in 05/2021 with several tubular adenomas and a sessile serrated polyp removed Surgical History Surgery Date(Month/Year) Skin removal off of nose as a child
--- OUTSIDE RECORDS SUMMARY | 2024-11-10 19:14 | XMS_ITS ---
Author Organization [facility] Address [address] [place] [address] Care Team Providers Care State Highway Police Officer Name Role Phone Caron MUIR, Krissy Primary Care Provider Unavail able Pino Posey Unavailable [phone] Allergies Allergen (clinical drug ingredient) Drug/Non Drug Allergy documented on EMR Reaction Allergy Type Onset Date Status valproate Depakote Unknown Drug Allergy Active simvastatin Simvastatin Unknown Drug Allergy Act kel REASON FOR VISIT At Risk Footcare, Toe Irritation Medications Medication SIG (Take, Route, Frequency, Duration) Notes Start Date End Date Status ZyPREXA 10 MG 1 tablet Orally Once a day Active Vitamin D3 Super Strength 50 MCG (1999 UT) 1 tablet Orally Once a day Active Topiramate 100 MG 1 tablet Orally Once a day Active SEROquel 100 MG 1 tablet Orally Once a day Active Rybelsus 14 MG 1 tablet at least 30 minutes before first food, beverage or other oral medicine of the day Orally Once a day Active OXcarbazepine 600 MG 1 tablet Orally Twi ce a day Active Lisinopril 20 MG 1 tablet Orally Once a day Active Dicyclomine HCl 20 MG 1 tablet Orally Th ree times a day Active Benztropine Mesylate 1 MG 1 tablet Orally Once a day Active Atorvastatin Calcium 80 MG 1 tablet Orally Once a day Active Actos 45 MG 1 tablet Orally Once a day Active Acetaminophen 500 MG 1 capsule as needed Orally every 6 hrs Active Extra Depth Orthopedic Shoes (1 Pair) with Customized Heat Molded Multidensity Innersoles (3 Pair) as directed Dx: NIDDM (E11.9), Hammertoe Foot Deformity (M20.41,M20.42), Preulcerative Skin Lesion(s) (L85.1) 08/04/2024 Active Social History Tobacco Use: Social History Observation Description Date Details (start date - stop date) Never Smoker NA - NA Tobacco Control (Standard) Question Answer Notes Tobacco use: Nonsmoker Additional Findings: Tobacco non-user Current no nsmoker AUDIT-C (Standard) Question Answer Notes Did you have a drink containing alcohol in the p ast year? No Points 0 Interpretation Negative Problems Problem Type SNOMED Code ICD Code Onset Dates Problem Status W/U Status Risk Notes Problem Type 2 diabetes mellitus without complication (586440413) Type 2 diabetes mellitus without complication (E11.9) Active confirmed Problem Acquired hammer toe of right foot (332424292421618 5) Other hammer toe(s) (acquired), right foot (M20.41) Active confirmed Problem Acquired hammer toe of left foot (637931647328892 3) Other hammer toe(s) (acquired), left foot (M20.42) Active confirmed Vital Signs Height 5' 10.5 in 08/04/2024 Weight 200 lbs lbs 08/04/2024 BMI 28.29 kg/m2 08/04/2024 Encounters Encounter Location Date Provider Diagnosis [facility] [address] [address] 08/04/2024 Pino Kalpesh Type 2 diabetes mellitus without complication E11.9 ; Other hammer toe(s) (acquired), right foot M20.41 and Other hammer toe(s) (acquired), left foot M20.42 Assessments Encounter Date Diagnosis (ICD Code) Assessment Notes Treatment Notes Treatment Clinical Notes Section Notes 08/04/2024 Type 2 diabetes mellitus without complication (ICD-10 - E11.9) 08/04/2024 Other hammer toe(s) (acquired), right foot (ICD-10 - M20.41) Patient Educated with: DIABETIC FOOT CARE INSTRUCTIONS.p df (DIABETIC FOOT CARE INSTRUCTIONS.p df) 08/04/2024 Other hammer toe(s) (acquired), left foot (ICD-10 - M20.42) Plan Of Treatment Medication Medication Name Sig Start Date Stop Date Notes Extra Depth Orthopedic Shoes (1 Pair) with Customized Heat Molded Multidensity Innersoles (3 Pair) as directed Dx: NIDDM (E11.9), Hammertoe Foot Deformity (M20.41,M20.42), Preulcerative Skin Lesion(s) (L85.1) 08/04/2024 Treatment Notes Assessment Notes Other hammer toe(s) (acquired), right fo ot Patient Educated with: DIABETIC FOOT CARE INSTRUCTIONS.pdf (DIABETIC FOOT CARE INSTRUCTIONS.pdf) Next Appt Details Follow Up: 1 Year, Reason: Provider Name:Pino Yoselyn Posey , 08/03/2025 01:30:00 PM, [address] [facility], [address], [place], [address], Progress Notes * Jazmine MAYNARDRonnieOB: 4 (59 yo M)Acc No.[id number]:08/04/2024 Progress Notes Patient:?Ganesh MAYNARD Provider:?Pino Posey DPM :1965???Age:59 Y???Sex:Male Abdias e:08/04/2024 Address:[address] [place] [address], [address] [place], [place] [id number] Pcp:Krissy Reardon MD Subjective: * Chief Complaints: * ???At Risk FootcareToe Irrit ation * HPI: ???At Risk footcare:?Pt States Last PCP Visit:?Date?03/11/2024 ???Toe pain:?Location:?B/L feet.?Duration:?several years.?Course:?worse.?Aggravated by:?shoes, any pressure.?Treatments:?change in shoes.? * ROS:?General/Constitutional:?Nausea?denies.?Vomiting?denies.?Hunger Thirst?denies.?Loss appetite?denies.?Chills?denies.?Fatigue?denies.?Fever?denies.?Night Sweats?denies.?Unexplained weight loss?denies.?Unexplained weight gain?denies.?HEENTM:?Dentures?denies.?Dizziness?denies.?Glasses/contacts?admits.?Retinopathy?de nies.?Blurred/double vision?denies.?TMJ?denies.?Discharge/drainage?denies.?Implants?denies.?Sore throat?denies.?Dental implants?admits.?Hard of hearing ?denies.?Difficulty chewing/swallowing/speaking?denies.?Nose bleeds?denies.?Sore mouth?denies.?Respiratory:?On Oxygen?denies.?Pneumonia/pleurisy?denies.?Bronchitis?denies.?Emphysema?denies.?C oughing?denies.?Cough blood?denies.?Shortness of breath?denies.?Wheezing?denies.?Cardiovascular:?Pacemaker?denies.?MVP?denies.?WPW?denies.?CHF?denies.?Heart attack?denies.?Septal defect?denies.?Rapid beat?denies.?Chest pain ?denies.?Atrial Fib.?denies.?Murmur/Palpitations?denies.?Gastrointestinal:?Hemorrhoids?denies.?Stomach/Abdominal pain?denies.?Dark blood stool?denies.?Irritable bowel ?denies.?Constipation?denies.?Diarrhea?denies.?Hematology:?Swelling?denies.?Clots?denies.?Varicose Veins?denies.?Bruising?denies.?Bleeding problem?denies.?Genitourinary:?Blood urine?denies.?Frequent/Painfu/urination/bladder control?denies.?Kidney stones?denies.?Infection (UTI)?denies.?Nephropathy?denies.?sex trans dis (STD)?denies.?Prostate?denies.?Musculoskeletal:?Hammertoes?admits.?Bunions?denies.?Back Pain?denies.?Muscle Cramps/ Resting?denies.?Muscle cramps / walking?denies.?Generalized aches and pains?denies.?Weakness?denies.?Integ.:?Howard?denies.?Scars?denies.?Corns/calluses?admits.?Ingrown nails?admits.?Painful nails?denies.?Open Sores?denies.?Rashes?denies.?Neurologic:?Difficulty sleeping?denies.?Brain disorder?denies.?Numbness?admits - occassionally to Left foot when walking.?Balance trouble?denies.?Confusion?denies.?Fainting/blackouts?denies.?Tingling?admits.?Tr emors?denies.? * Medical History:? * Surgical History:?Denies Pas t Surgical History * Hospitalization/Major Diagno stic Procedure:?Denies Past Hospitalization * Family History:?Mother: harsh nosed with Diabetic - NIDDM, Family history of arthritis.? * Social History:?Tobacco Use:?Tobacco Control (Standard)?Tobacco use:?Nonsmoker ?Additional Findings: Tobacco non-user?Current nonsmoker ???Drugs/Alcohol:?Drugs?Have you used drugs other than those for medical reasons in the past 12 months??No ???Miscellaneous:?Caffeine: no. ?Children: no. ?Exercise: no. ?Marital status: single. 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 ???Drug/Alcohol:?AUDIT-C (Standard)?Did you have a drink containing alcohol in the past year??No ?Points?0 ?Interpretation?Negative * Medications:?TakingAcetamino phen 500 MG Capsule 1 capsule as needed Orally every 6 hrs Actos 45 MG Tablet 1 tablet Orally Once a day Atorvastatin Calcium 80 MG Tablet 1 tablet Orally Once a day Benztropine Mesylate 1 MG Tablet 1 tablet Orally Once a day Dicyclomine HCl 20 MG Tablet 1 tablet Orally Three times a day Lisinopril 20 MG Tablet 1 tablet Orally Once a day OXcarbazepine 600 MG Tablet 1 tablet Orally Twice a day Rybelsus 14 MG Tablet 1 tablet at least 30 minutes before first food, beverage or other oral medicine of the day Orally Once a day SEROquel 100 MG Tablet 1 tablet Orally Once a day Topiramate 100 MG Tablet 1 tablet Orally Once a day Vitamin D3 Super Strength 50 MCG (2000 UT) Tablet 1 tablet Orally Once a day ZyPREXA 10 MG Tablet 1 tablet Orally Once a day Medication List reviewed and reconciled with the patientTaking Acetaminophen 500 MG Capsule 1 capsule as needed Orally every 6 hrs Taking Actos 45 MG Tablet 1 tablet Orally Once a day Taking Atorvastatin Calcium 80 MG Tablet 1 tablet Orally Once a day Taking Benztropine Mesylate 1 MG Tablet 1 tablet Orally Once a day Taking Dicyclomine HCl 20 MG Tablet 1 tablet Orally Three times a day Taking Lisinopril 20 MG Tablet 1 tablet Orally Once a day Taking OXcarbazepine 600 MG Tablet 1 tablet Orally Twice a day Taking Rybelsus 14 MG Tablet 1 tablet at least 30 minutes before first food, beverage or other oral medicine of the day Orally Once a day Taking SEROquel 100 MG Tablet 1 tablet Orally Once a day Taking Topiramate 100 MG Tablet 1 tablet Orally Once a day Taking Vitamin D3 Super Strength 50 MCG (2000 UT) Tablet 1 tablet Orally Once a day Taking ZyPREXA 10 MG Tablet 1 tablet Orally Once a day Medication List reviewed and reconciled with the patient * Allergies:?Agnes wei[Allergies Verified] Objective: * Vitals:?Ht: 5' 10.5 , Wt:200 lbs, BMI:28.29, Shoe size: 11.5 D, BS: 136, Ht-cm: 179.07 cm, Wt-k.72 kg. * Examination: ???CQM Exceptions:: ?Hemoglobin A1c not performed?Reason:?No reason specified?Ophthalmology Referral: ?DIABETES EYE EXAM?Procedure Performed:?Yes ?Diabetic Retinopathy Screening:?Yes ?Retinal Screening Performed:?Yes ?Findings of Diabetic Eye Exam:?no retinopathy?Dermatologic: ?SKIN FINDINGS:?Skin exam reveals normal texture, elasticity, and turgor. There are no masses. The interspaces are clear, B/L, Skin exam reveals Keratotic lesion(s) located at, SUB MTH (s), 5, B/L, Plantar Heel(s), B/L.?Neurological: ?SENSORY:?Pt relates, occasional numbness, paresthesia, Left, Neurological exam reveals intact sensorium, pain sensation normal, vibration sensation intact, pinprick sensation is normal in the lower extremities, 5.07 monofilament test performed at plantar aspects of 5 varied sites per foot shows sensation, normal, B/L.?Vascular: ?DP PULSES(B):?1/4, B/L.?PT PULSES(B):?1/4, B/L.?CAPILLARY FILL TIME:?immediate, all digits, B/L.?TROPHIC CONDITION-TEXTURE/ELASTICITY/TURGOR/HAIR GROWTH(B):?normal, B/L.?TEMPERTURE GRADIENT(C):?normal, warm to cool, proximal to distal, B/L, B/L.?PIGMENTATION:?normal, B/L.?EDEMA(C):?absent, B/L.?CLAUDICATION(C):?denies, B/L.?REST PAIN:?denies, B/L.?Orthopedic: ?DIGITAL DEFORMITIES:?Digital contracture, PIPJ, 2-5 B/L, incompl-reducible to push-up test, no over, nor underlapping,?there is?evidence of shoe producing skin irritation.?FOOTWEAR:?worn, non-supportive, shoe gear properties exacerbate patient's foot/toe deformity.?General Examination: ?FOOT EXAM:?Lower Extremity Neurological Exam performed:?Yes ?Footwear Evaluation?Footwear Evaluation performed:?Yes??? Assessment: * Assessment: 1.?Other hammer toe(s) (acqu ired), right foot - M20.41???Specify :Chronic problem, Worse (4),Rx Management (4)???2.?Type 2 diabetes mellitus without complication - E11.9 (Primary)???3.?Other hammer toe(s) (acquired), left foot - M20.42???Specify :Chronic problem, Worse (4),Rx Management (4)??? Plan: * Treatment: * Procedure Codes:? * Preventive Medicine:? ??Counseling:?Discussion:?-04: Office or other outpatient visit for the evaluation and management of a new patient, which required a medically appropriate history and/or examination and MODERATE level of DECISION MAKING for: 1 OR MORE CHRONIC PROBLEM(S) THATS WORSENING, 2 STABLE CHRONIC PROBLEMS, A NEWLY DIAGNOSED PROBLEM WITH UNCERTAIN PROGNOSIS, AN ACUTE COMPLICATED INJURY WITH MULTIPLE TREATMENT OPTIONS, OR AN ACUTE PROBLEM WITH ACCOMPANYING SYSTEMIC SYMPTOMS, THAT POSE(S) A MODERATE RISK OF MORBIDITY. THIS CONDITION MAY ALSO INCLUDE RX DRUG MANAGEMENT, OR A DECISON FOR MINOR SURGERY. The visit on the day of the encounter encompassed interpreting the data and educating the patient as to the nature of their condition, treatment options available according to their individual PMH, meds, allergies, and overall health/living conditions, as well as any potential risks or complications that may occur from a failure to adhere to, and participate in, the recommended course of therapy. The discussion included a complete verbal, and/or written explanation of the examination results, any x-rays taken, the proposed diagnosis, and outline of the treatment plan. A schedule for future care needs was also explained. The patient verbalized an understanding of the instructions at this time and agreed to be an active participant in their treatment. If the patient should think of any questions or concerns after the visit, I have encouraged the patient to call the office.?Digital Surgery:?Digital surgery was discussed with the patient, We elected to try conservative treatment at the present time, due to the patients medical history and increased asssociated post-operative risks.?Digital Treatment:?HT- I explained to the patient the possible etiologies of Hammertoes, including genetics/foot type/shoegear/activity level/exercise routine and the risks/benefits of all the different treatment options for their pain including: No treatment at all, Rest, Ice, New/supportive/wider/deeper Shoegear, Digital Padding/Strapping/Taping/Bracing/Gel protective sleeves, Foot/Ankle AFO Bracing, Stretching exercises, Deep Tissue Massage, Arch support/shoe inserts with splay metatarsal padding, and Custom orthoses. I insisted that any digital devices be removed daily and not worn overnight for safety. The patient is to carefully examine the toes daily for any skin irritation while using any splinting or padding device. The advantages and disadvantages of each option were discussed and the patients questions re: shoegear, padding, custom vs prefabricated inserts, activity level, and consistency in home treatment regimens for optimal success were answered to their verbally confirmed satisfaction.?Shoe Gear Counseling:?SHOE Rx - The patient was counseled in great detail on their muscoloskeletal foot and toe deformities which coincided with the dermatological presentations visualized on exam. We discussed how their deformities put the integrity of their feet at risk for potential pedal complications which makes the accomidative diabetic shoes and cutomizable inserts medically necessary. We discussed the different shoe and insert treatment types and options, as well as the important advantages for adhering to regularly wearing these accomidative devices daily. The patient was made aware of the fact that a failure to abide by these recommedations may be deleterious to their foot health as they are able to prevent many pedal complications such as skin irritation, skin ulceration, infection, and even loss of toe/foot/leg/or life. Time was also spent with the patient dispensing and discussing proper diabetic footcare techniques including daily skin moisturization, daily foot inspection for any interruption in skin integrity including open lesions, or sign of infection such as redness/malodor/drainage/swelling. Also discussed and recommended were procedures regarding daily shoe inspection for the presence of internal foreign bodies as well as any visualized irregular shoe or insert wear. Patient questions re: shoes, inserts, and self foot inspections were answered to their satisfaction as the patient verbally confirmed a full understanding of the above information. A Rx for Extra Depth Orthopedic Shoes with 3 pair of custom heat-molded inserts was dispensed.? * Follow Up:?1 Year * Images: * Sign off status: Completed true * Provider:?Pino Posey DPM Date:?2023 Generated for Roma baig/Fox/Bette on:?11/10/2024 07:14 PM EDT History and Physical Notes * HPI (History of Present Illness) Category Sub-Category Detail Notes Category Not es Toe pain Location: B/L feet Duration: several years Course: worse Aggravated by: shoes, any pressure Treatments: change in shoes At Risk footcare Pt States Last PCP Visit: Date: 4 Examination Category Sub-Category Detail Notes Category Not es Neurological SENSORY: Pt relates, occa sional numbness, paresthesia, Left, Neurological exam reveals intact sensorium, pain sensation normal, vibration sensation intact, pinprick sensation is normal in the lower extremities, 5.07 monofilament test performed at plantar aspects of 5 varied sites per foot shows sensation, normal, B/L Dermatologic SKIN FINDINGS: Skin exam reveal s normal texture, elasticity, and turgor. There are no masses. The interspaces are clear, B/L, Skin exam reveals Keratotic lesion(s) located at, SUB MTH (s), 5, B/L, Plantar Heel(s), B/L Orthopedic FOOTWEAR: worn, non-suppor tive, shoe gear properties exacerbate patient's foot/toe deformity DIGITAL DEFORMITIES: Digital contracture , PIPJ, 2-5 B/L, incompl-reducible to push-up test, no over, nor underlapping, there is evidence of shoe producing skin irritation General Examination FOOT EXAM: Lower Extrem ity Neurological Exam performed:: Yes Footwear Evaluation Footwear Evaluation performe d:: Yes Ophthalmology Referral DIABETES EYE EXAM Procedure Perform ed:: Yes Diabetic Retinopathy Screening:: Yes Retinal Screening Performed:: Yes Findings of Diabetic Eye Exam:: no retin opathy Vascular DP PULSES (B): 1/4, B/L PT PULSES (B): 1/4, B/L CAPILLARY FILL TIME: immediate, all digi ts, B/L TEMPERTURE GRADIENT (C): normal, warm to cool, proximal to distal, B/L, B/L TROPHIC CONDITION-TEXTURE/ELASTICITY/TURGOR/HAIR GROWTH (B): normal, B/L EDEMA (C): absent, B/L CLAUDICATION (C): denies, B/L REST PAIN: denies, B/L PIGMENTATION: normal, B/L CQM Exceptions: Hemoglobin A1c not performed Reason:: No r [place] specified
--- OUTSIDE RECORDS SUMMARY | 2024-11-10 19:14 | XMS_ITS | Clinical Summary ---
Author Organization [facility] ity Address [address] [place] [address] Care Team Providers Care Fur Trapper Name Role Phone Unavailable Primary Care Provider Unavailabl e Social History Tobacco Use Types Packs/Day Years Used Date Smoking Tobacco: Never Assessed Sex and Gender Information Value Date Recorded Sex Assigned at Not on file Legal Sex Male 11:39 PM EST Gender Identity Not on file Sexual Orientation Not on file Plan of Treatment Health Maintenance Due Date Last Done Comments DTaP,Tdap,and Td Vaccines (1 - Tdap) 1983 Pneumococcal Vaccine: 50+ Ye ars (1 of 1 - PCV) 2014 Zoster Vaccines (1 of 2) 2014 COVID-19 Vaccine (1 - 2023-2 5 season) 2024 Influenza Vaccine (#1) 2024 RSV Immunization Patients 60 + Years Old (1 - 1-dose 75+ series) 2039 HIB Vaccines Aged Out No longer eligi ble based on patient's age to complete this topic HPV Vaccines Aged Out No longer eligi ble based on patient's age to complete this topic Hepatitis A Vaccines Aged Out No long er eligible based on patient's age to complete this topic Hepatitis B Vaccines Aged Out No long er eligible based on patient's age to complete this topic IPV Vaccines Aged Out No longer eligi ble based on patient's age to complete this topic MMR Vaccines Aged Out No longer eligi ble based on patient's age to complete this topic Meningococcal ACWY Vaccine Aged Out N o longer eligible based on patient's age to complete this topic Meningococcal B Vacine Aged Out No lo nger eligible based on patient's age to complete this topic Pneumococcal Vaccine: Pediat rics (0 to 5 Years) and At-Risk Patients (6 to 64 Years) Aged Out No longer eligible b ased on patient's age to complete this topic RSV Immunization Patients Un thee 20 months Aged Out No longer eligible b ased on patient's age to complete this topic Varicella Vaccines Aged Out No longer eligible based on patient's age to complete this topic
--- OUTSIDE RECORDS SUMMARY | 2024-11-10 19:15 | XMS_ITS | Patient Health Record ---
[facility] Address [address] [place] [address] Care Team Providers Care C Programmer Name Role Phone Caron MUIR, Krissy Primary Care Provider Unavail able Pino Posey Unavailable [phone] Allergies Allergen (clinical drug ingredient) Drug/Non Drug Allergy documented on EMR Reaction Allergy Type Onset Date Status valproate Depakote Unknown Drug Allergy Active simvastatin Simvastatin Unknown Drug Allergy Act kel Reason For Referral No Information Medications Medication [...] as needed Orally every 6 hrs Active Topiramate 100 MG 1 tablet Orally Once a day Active SEROquel 100 MG 1 tablet Orally Once a day Active Extra Depth Orthopedic Shoes (1 Pair) with Customized Heat Molded Multidensity Innersoles (3 Pair) as directed Dx: NIDDM (E11.9), Hammertoe Foot Deformity (M20.41,M20.42), Preulcerative Skin Lesion(s) (L85.1) 08/04/2024 Active Rybelsus 14 MG 1 tablet at [...] 1 tablet Orally Once a day Active Social History Tobacco Use: Social History [...] Problem Status W/U Status Risk Notes Problem Acquired hammer toe of right foot (609288294792334 5) Other hammer toe(s) (acquired), right foot (M20.41) Active confirmed Problem Acquired hammer toe of left foot (651730300325005 3) Other hammer toe(s) (acquired), left foot (M20.42) Active confirmed Problem Type 2 diabetes mellitus without complication (810273922) Type 2 diabetes mellitus without complication (E11.9) Active confirmed Vital Signs Height 5' 10.5 in 08/04/2024 Weight 200 lbs lbs 08/04/2024 BMI 28.29 kg/m2 08/04/2024 Encounters Encounter Location Date Provider Diagnosis [facility] [address] [address] 08/04/2024 Pino Posey Type 2 diabetes mellitus without complication E11.9 ; Other hammer toe(s) (acquired), right foot M20.41 and Other hammer toe(s) (acquired), left foot M20.42 Assessments Encounter Date Diagnosis (ICD Code) Assessment Notes Treatment Notes Treatment Clinical Notes Section Notes 08/04/2024 Other hammer toe(s) (acquired), right foot (ICD-10 - M20.41) Patient Educated with: DIABETIC FOOT CARE INSTRUCTIONS.p df (DIABETIC FOOT CARE INSTRUCTIONS.p df) 08/04/2024 Type 2 diabetes mellitus without complication (ICD-10 - E11.9) 08/04/2024 Other hammer toe(s) (acquired), left foot (ICD-10 - M20.42) Plan Of Treatment Next Appt Details Provider Name:Pino Posey , 08/03/2025 01:30:00 PM, [address] [place] [address], [place] [address], [place], [address], Insurance Providers Payer Name Payer Address Payer Phone Subscriber Number Group Number Insured Name Patient Relationship to Insured Coverage Start Date Coverage End Date [facility] SCO Claims [address] [place] [phone] [id number] Ganesh Trotter Self - patient is the insured Medical (General) History Medical History History ICD Code Anxiety covid-19 Chicken pox Depression type II diabetes Hypercholesterolemia
== END 2024-11-10 16:50 | disposition home or self-care (01) ==
LOC: HO.HMCH 15:54
PROVIDERS: PCP Internal Medicine; Visit Provider Internal Medicine
DX: E11.9 Type 2 diabetes mellitus without complications (principal)

== ENCOUNTER → 2024-11-10 15:53 | Outpatient (BNVA) | payer OTHER, SELFPAY | PROVIDERS: PCP Internal Medicine; Visit Provider Internal Medicine | DX: F32.0 Major depressive disorder, single episode, mild (principal); F20.0 Paranoid schizophrenia; E11.9 Type 2 diabetes mellitus without complications; E78.00 Pure hypercholesterolemia, unspecified; I10 Essential (primary) hypertension | CPT/HCPCS: 83036; 96127; 99212 ==

== ENCOUNTER 2025-03-14 10:30 | Outpatient (REF) | payer OTHER, SELFPAY ==
[2025-03-14 12:17] LABS: Alanine Aminotransferase 30 U/L (0-40); Albumin Level 4.4 g/dL (3.5-5.0); Alkaline Phosphatase 110 U/L (39-117); Anion Gap 12 (12-20); Aspartate Amino Transferase 26 U/L (5-37); Blood Urea Nitrogen 12 mg/dL (9-16); Calcium 8.9 mg/dL (8.4-10.2); Carbon Dioxide 22 mmol/L (22-29); Chloride 108 mmol/L (96-108); Cholesterol 116 mg/dL (<200); Estimated Glomerular Filt Rate > 60; HDL Cholesterol 43 mg/dL (>40); Potassium 4.2 mmol/L (3.3-5.1); Sodium 138 mmol/L (135-145); Total Protein 6.9 g/dL (6.5-8.0); Triglycerides 66 mg/dL (<150)
== END 2025-03-14 10:31 | disposition home or self-care (01) ==
LOC: HO.LAB 10:30
PROVIDERS: PCP Internal Medicine; Visit Provider Internal Medicine
DX: Z00.00 Encounter for general adult medical examination without abnormal findings (principal); E78.5 Hyperlipidemia, unspecified; E55.9 Vitamin D deficiency, unspecified
CPT/HCPCS: 36415; 80053; 80061; 82306

== ENCOUNTER 2025-03-16 08:30 | Outpatient (REF) | payer OTHER, SELFPAY ==
--- OUTSIDE RECORDS SUMMARY | 2025-03-16 12:19 | XMS_ITS | Patient Health Record ---
[facility] Address [address] [place] [address] Care Team Providers Care Rn Prior Authorization Name Role Phone Caron MUIR, Krissy Primary Care Provider Unavail able Pino Posey Unavailable [phone] Allergies Allergen (clinical drug ingredient) Drug/Non Drug [...] Problem Acquired hammer toe of right foot (882321958576836 5) Other hammer toe(s) (acquired), right foot (M20.41) Active confirmed Problem Acquired hammer toe of left foot (388332746761160 3) Other hammer toe(s) (acquired), left foot (M20.42) Active confirmed Problem Type II diabetes mellitus without complication (418269465) Type 2 diabetes mellitus without complication (E11.9) Active confirmed Vital Signs Height 5' 10.5 in 08/04/2024 Weight 200 lbs lbs 08/04/2024 BMI 28.29 kg/m2 08/04/2024 Encounters Encounter Location Date Provider Diagnosis [facility] [address] [place] [address] [address] 08/04/2024 Pino Posey Type 2 diabetes mellitus [...] Provider Name:Pino Posey , 08/03/2025 01:30:00 PM, [address] [place] [address], [place] [address], [place], [address], Insurance Providers Payer Name Payer Address Payer Phone Subscriber Number Group Number Insured Name Patient Relationship to Insured Coverage Start Date Coverage End Date [facility] SCO Claims [address] [place] [phone] [id number] Ganesh Trotter Self - patient is the insured Medical (General) History Medical History History ICD Code Anxiety covid-19 Chicken pox Depression type II diabetes Hypercholesterolemia
--- OUTSIDE RECORDS SUMMARY | 2025-03-16 12:19 | XMS_ITS | Clinical Summary ---
Author Organization [facility] ity Address [address] [place] [address] Care Team Providers Care Master Scheduler Name Role Phone Unavailable Primary Care Provider [...]
--- OUTSIDE RECORDS SUMMARY | 2025-03-16 12:19 | XMS_ITS | Patient Health Record ---
Author Organization [facility] Address [address] [place] [address] Care Team Providers Care Shear Operator Helper Name Role Phone Krissy Morrison Primary Care Provider Torres Joyner Unavailable [phone] Allergies Allergen (clinical drug ingredient) Drug/Non Drug [...] Problem Status W/U Status Risk Notes Problem 243622917 Encounter for screening for malignant neoplasm of colon (Z12.11) Active confirmed Problem 904455524 History of adenomatous polyp of colon (Z86.010) Active confirmed Problem Diverticulosis o f large intestine without perforation or abscess without bleeding (K57.30) Active confirmed Problem 845057015 Preprocedural examination (Z01.818) Active confirmed Problem 943003977 Elevated liver enzymes (R74.8) Active confirmed Problem 167959504940669 Pre-procedural examination (Z01.818) Active confirmed Problem Diverticulosis of colon (928978807) Diverticulosis of colon (K57.30) Active confirmed Vital Signs Temperature 98.9 degrees Fahrenheit 02/01/2025 Blood pressure diastolic 01 mm Hg 02/01/2025 Height 70 in 02/01/2025 Blood pressure systolic 001 mm Hg 02/01/2025 Weight 256.4 lbs 02/01/2025 BMI 36.79 kg/m2 02/01/2025 Procedures Procedure Date Ordered Date Performed Result Body Sit e COLONOSCOPY 02/01/2025 N/A Encounters Encounter Location Date Provider Diagnosis [facility] [address] [place] [address] 02/01/2025 Torres Amarilis Encounter for screen ing for malignant neoplasm of colon Z12.11 ; Preprocedural examination Z01.818 and History of adenomatous polyp of colon Z86.010 [facility] [address] [place] [address] 02/01/2025 Torres Amarilis Assessments Encounter Date Diagnosis [...] (PT, INR) 06/09/2017 HEPATITIS A,B,C PROFILE 06/09/2017 [id number] (A1A) 06/09/2017 CERULOPLASMIN 06/09/2017 MITOCHONDRIAL AB 06/09/2017 SMOOTH MUSCLE ANTIBODIES 06/09/2017 FLUOR. ANTINUCLEAR AB SCREEN (SASHA) 05/31 Future Test Test Name Order Date COLONOSCOPY 06/09/2017 COLONOSCOPY 06/25/2018 COLONOSCOPY 01/27/2020 COLONOSCOPY 05/08/2021 COLONOSCOPY 08/26/2022 Next Appt Details Provider Name:Torres Olmos , 04/24/2025 12:40:00 PM, [address] [place] [address] , [place], [place], [phone], Insurance Providers Payer Name Payer Address Payer Phone Subscriber Number Group Number Insured Name Patient Relationship to Insured Coverage Start Date Coverage End Date [facility] [address] [place] [phone] [id number] LILLIAN MAYNARD Self - patient is the insured Medical (General) History Medical History History ICD Code PARANOID SCHIZOPHRENIA HYPERTENSION NIDDM HYPERLIPIDEMIA ELEVATED LIVER ENZYMES DYSPNEA FATIGUE OBESITY Denies [place],CVA,Lung disease,renal disease Screening colonoscopy in Oct revealed [...]
== END 2025-03-16 08:31 | disposition home or self-care (01) ==
LOC: HO.LNP 08:30
PROVIDERS: Visit Provider Internal Medicine
DX: R80.9 Proteinuria, unspecified (principal)
CPT/HCPCS: 82043; 82570

== ENCOUNTER 2025-03-21 12:20 | Outpatient (AMB) | payer OTHER, SELFPAY ==
--- NOTE | 2025-03-21 12:35 | MHC.PC.OV ---
Vital Signs 03/21/25 12:36 Height 5 ft 10 in Weight 247 lb BMI 35.4 BP 110/70 Blood Pressure Location Lt brachial Position Sitting Intake Visit Reasons: Annual Exam- A1C needed Intake Note: Patient here for a physical exam Governor Assembler Required: No Accompanied by: Self / Same As Patient Allergies simvastatin (SIMVASTATIN) Allergy (Intermediate, Verified 03/21/25 12:44) INCREASES LIVER ENZYMES, increase liver enzymes divalproex sodium (From DEPAKOTE) Adverse Reaction (Intermediate, Verified 03/21/25 12:44) BLOATING metformin Adverse Reaction (Mild, Verified 03/21/25 12:44) abdominal bloating Medication List - Last Reconciled 03/21/25 by Krissy Engel MD atorvastatin 80 mg PO BEDTIME 90 days benztropine 1 mg PO DAILY blood sugar diagnostic (FreeStyle Lite Strips) 1 strip miscellaneous BID buspirone 5 mg PO BID cholecalciferol (vitamin D3) 50 mcg PO DAILY 90 days [diabetic shoes As directed ] dicyclomine 20 mg PO TID 90 days lancets Use 1 lancet twice a day lancets (OneTouch Delica Plus Lancet) Testing once a day as needed lisinopril 20 mg PO DAILY 90 days olanzapine 10 mg PO BID oxcarbazepine 600 mg PO BID pioglitazone (Actos) 45 mg PO DAILY 90 days quetiapine (Seroquel) 50 mg PO BEDTIME quetiapine 200 mg PO BEDTIME semaglutide 14 mg PO DAILY 90 days topiramate 1 tab PO BEDTIME topiramate 25 mg PO BID Tobacco use date assessed: 11/10/24 Dental Screening Dental Screen Date: 11/10/24 HPI HPI Comments History of Present Illness Details The patient is a 59-year-old male presenting with a physical exam and evaluation of an umbilical hernia. The patient has a history of paranoid schizophrenia, which is managed by psychiatry. He is currently on multiple medications including olanzapine and oxcarbazepine. The patient also reports anxiety, for which he takes buspirone. He has a history of dyspepsia, managed with dicyclomine. The patient underwent a colonoscopy in 2022, which revealed a tubular adenoma. A follow-up colonoscopy is scheduled for April 24. He has a family history of lung cancer in his father and diabetes in his mother. The patient does not smoke and consumes wine a few times a month. He reports an umbilical hernia that occasionally bulges but is not painful. - Tetanus vaccination administered in 2018 - Colonoscopy performed in 2022, follow-up scheduled for April 24 -diabetic eye exam done August 2024 [facility] Medical History (Updated 03/21/25 @ 12:57 by Krissy Engel MD) Hx of colonic polyps History of iron deficiency anemia Obesity, Class I, BMI 30.0-34.9 (see actual BMI) Obese Paranoid schizophrenia Pure hypercholesterolemia Essential hypertension Diabetes mellitus Surgical History Hx of colonoscopy History of oral surgery History of nasal surgery Family History Father Lung cancer Mother Diabetes mellitus Maternal Grandmother No problems noted. Maternal Grandfather No problems noted. Paternal Grandmother No problems noted. Paternal Grandmother No problems noted. Social History Housing: Apartment Alcohol intake: current Alcohol intake frequency: a few times a month Alcohol type: wine Patient Tobacco Use Status: Never used Tobacco e-Cigarette/Vaping Use: Never Used Second Hand Smoke Exposure: No service: No Current occupational status: disabled Cognitive needs: No Hearing needs: No Vision needs: Yes Questionnaire Thrive Questionnaire Date Thrive assessed: 11/10/24 ILYA-7 AMB Questionnaire ILYA-7 Date ILYA - 7 assessed: 11/10/24 Source: Developed by Drs. Torres Alarcon, Carline Quiñones, Umang Tinajero and colleagues, with an educational gianni from [employer]. Review of Systems Const All systems reviewed & are unremarkable except as noted in HPI and below Card Denies chest pain at rest, Denies chest pain with activity, Denies edema, Denies irregular heart rhythm, Denies claudication, Denies dyspnea, Denies dyspnea on exertion, Denies orthopnea, Denies paroxysmal nocturnal dyspnea and Denies slow heart rate Resp Denies cough, Denies dyspnea and Denies dyspnea on exertion GI Denies abdominal pain, Denies change in bowel habits, Denies excessive flatus, Denies nausea and Denies vomiting Denies urinary hesitancy, Denies urinary incontinence and Denies urinary urgency Neuro Denies lack of coordination Physical exam (Primary Care) Vital Signs: Last Vital Signs BP 110/70 03/21/25 12:36 BMI result Body Mass Index 35.4 BMI Assessment/Plan discussion: High BMI High, discussed plan: lifestyle, weight reduction, dietary and physical activity Tobacco/Smoking Status: Tobacco use Status Tobacco use date assessed 11/10/24 03/21/25 12:42 Patient Tobacco Use Status Never used Tobacco 03/21/25 12:42 e-Cigarette/Vaping Use Never Used 03/21/25 12:42 Thrive Assessment: Date of Thrive Assessment Date Thrive assessed 11/10/24 03/21/25 12:42 HENMT Head: Yes normal to inspection, Yes normocephalic and Yes atraumatic Ears: external ears normal Eyes General: appearance normal, both eyes and all related structures Eyelids: Yes eyelids normal Conjunctivae: conjunctivae normal Neck Neck: Yes normal visual inspection and Yes supple Resp Effort & Inspection: normal respiratory effort Auscultation: clear to auscultation bilaterally Cardio Jugular venous distension: no JVD Rate: regular rate Rhythm: regular rhythm Heart sounds: S1 normal heart sound present and S2 normal heart sound present GI Inspection: Yes normal to inspection Palpation (GI): Soft to palpation, nontender and Hernia present umbilical Auscultation: normal bowel sounds Skin General skin exam: no rashes or lesions noted Neuro General: no focal motor deficits Extrem General: Yes full ROM Psych Appearance: grossly normal Results AMB Hemoglobin A1c AMB Hemoglobin A1c 6.4 % Last Edit by LATRELL Viera on 03/21/25 12:52 Coding Level of Care Code Est Pt Level 3 (34741) Est Pt Prev Care 40-64y(61694) Diagnoses Physical exam Z00.00 Umbilical hernia K42.9 Type 2 diabetes mellitus without complication, without long-term current use of insulin E11.9 Diabetes mellitus type: type 2 Diabetes mellitus emt intermediate insulin use: without residential use Diabetes mellitus complication status: without complication Paranoid schizophrenia F20.0 Time Spent (min) 33 Assessment & Plan Assessment & Plan (1) Physical exam: Code(s): Z00.00 - Encounter for general adult medical examination without abnormal findings Category: Medical (2) Umbilical hernia: Code(s): K42.9 - Umbilical hernia without obstruction or gangrene Category: Medical (3) Diabetes mellitus: Code(s): E11.9 - Type 2 diabetes mellitus without complications Category: Medical Qualifiers: Diabetes mellitus type: type 2 Diabetes mellitus residential insulin use: without emt intermediate use Diabetes mellitus complication status: without complication Qualified Code(s): E11.9 - Type 2 diabetes mellitus without complications (4) Paranoid schizophrenia: Code(s): F20.0 - Paranoid schizophrenia Category: Medical Plan The patient will undergo an ultrasound to evaluate the umbilical hernia and determine if surgical intervention is necessary. A follow-up colonoscopy is scheduled for April 24 to monitor the tubular adenoma. The patient's psychiatric conditions, including paranoid schizophrenia and anxiety, will continue to be managed with current medications under psychiatric care. Patient was informed and verbally consented to the use of an ambient scribe for clinic note documentation during this visit. I discussed with the patient the presence of an umbilical hernia and the need for an ultrasound to assess its characteristics and potential need for surgery. We also reviewed the plan for a follow-up colonoscopy to monitor the tubular adenoma. The patient is aware of the ongoing management of his psychiatric conditions with current medications. Orders: Orders Lipid Panel 4 Months E78.5 - Hyperlipidemia, unspecified Microalbumin, Random (w Creat) 4 Months R80.9 - Proteinuria, unspecified AMB Hemoglobin A1c Today E11.9 - Type 2 diabetes mellitus without complications US abdomen limited Today K42.9 - Umbilical hernia without obstruction or gangrene Comprehensive [place]. Panel Fast 4 Months Z00.00 - Encounter for general adult medical examination without abnormal findings Patient Instructions: - Follow up with ultrasound as scheduled to evaluate the umbilical hernia - Attend the follow-up colonoscopy appointment on April 24 - Continue current psychiatric medications as prescribed
[2025-03-21 12:36] VITALS: BP 110/70; BMI 35.4
--- OUTSIDE RECORDS SUMMARY | 2025-03-21 13:22 | XMS_ITS | Clinical Summary ---
Author Organization [facility] ity Address [address] [place] [address] Care Team Providers Care Epic Stork Specialists Name Role Phone Unavailable Primary Care Provider [...] Vaccine (1 - 2023-2 5 season) 2024 Depression Screening 08/31/2024 Influenza Vaccine (#1) 2025 RSV Immunization Adult [...]
--- OUTSIDE RECORDS SUMMARY | 2025-03-21 13:22 | XMS_ITS | Patient Health Record ---
[facility] Address [address] [place] [address] Care Team Providers Care Collator Hand Name Role Phone Caron MUIR, Krissy Primary Care Provider Unavail able Pino Posey Unavailable [phone] Allergies Allergen (clinical drug ingredient) Drug/Non Drug [...] Problem Acquired hammer toe of right foot (729173958688724 5) Other hammer toe(s) (acquired), right foot (M20.41) Active confirmed Problem Acquired hammer toe of left foot (215385656349099 3) Other hammer toe(s) (acquired), left foot (M20.42) Active confirmed Problem Type II diabetes mellitus without complication (270043947) Type 2 diabetes mellitus without complication (E11.9) Active confirmed Vital Signs Height 5' 10.5 in 08/04/2024 Weight 200 lbs lbs 08/04/2024 BMI 28.29 kg/m2 08/04/2024 Encounters Encounter Location Date Provider Diagnosis [facility] [address] [address] 08/04/2024 Pino Posey Type 2 diabetes mellitus [...] Provider Name:Pino Posey , 08/03/2025 01:30:00 PM, [address] [place] [address], [place] [address], [place], [address], Insurance Providers Payer Name Payer Address Payer Phone Subscriber Number Group Number Insured Name Patient Relationship to Insured Coverage Start Date Coverage End Date [facility] SCO Claims [address] [place] [address] [phone] [id number] Ganesh Trotter Self - patient is the insured Medical (General) History Medical History History ICD Code Anxiety covid-19 Chicken pox Depression type II diabetes Hypercholesterolemia
--- OUTSIDE RECORDS SUMMARY | 2025-03-21 13:22 | XMS_ITS | Patient Health Record ---
Author Organization [facility] Address [address] [place] [address] Care Team Providers Care Sleep Technologist Name Role Phone Krissy Morrison Primary Care Provider Torres Joyner Unavailable [phone] Allergies Allergen (clinical drug ingredient) Drug/Non Drug [...] Problem Status W/U Status Risk Notes Problem [id number] Encounter for screening for malignant neoplasm of colon (Z12.11) Active confirmed Problem 678614676 History of adenomatous polyp of colon (Z86.010) Active confirmed Problem Diverticulosis o f large intestine without perforation or abscess without bleeding (K57.30) Active confirmed Problem 166996887 Preprocedural examination (Z01.818) Active confirmed Problem 004226228 Elevated liver enzymes (R74.8) Active confirmed Problem 402304412651573 Pre-procedural examination (Z01.818) Active confirmed Problem Diverticulosis of colon (566488787) Diverticulosis of colon (K57.30) Active confirmed Vital Signs Temperature 98.9 degrees Fahrenheit 02/01/2025 Blood pressure diastolic 01 mm Hg 02/01/2025 Height 70 in 02/01/2025 Blood pressure systolic 001 mm Hg 02/01/2025 Weight 256.4 lbs 02/01/2025 BMI 36.79 kg/m2 02/01/2025 Procedures Procedure Date Ordered Date Performed Result Body Sit e COLONOSCOPY 02/01/2025 N/A Encounters Encounter Location Date Provider Diagnosis [facility] [address] [place] [address] 02/01/2025 Torres Amarilis Encounter for screen ing for malignant neoplasm of colon Z12.11 ; Preprocedural examination Z01.818 and History of adenomatous polyp of colon Z86.010 [facility] [address] [place] [address] 02/01/2025 Torres Amarilis Assessments Encounter Date Diagnosis [...] (PT, INR) 06/09/2017 HEPATITIS A,B,C PROFILE 06/09/2017 [id number] (A1A) 06/09/2017 CERULOPLASMIN 06/09/2017 MITOCHONDRIAL AB 06/09/2017 SMOOTH MUSCLE ANTIBODIES 06/09/2017 FLUOR. ANTINUCLEAR AB SCREEN (SASHA) 05/31 Future Test Test Name Order Date COLONOSCOPY 06/09/2017 COLONOSCOPY 06/25/2018 COLONOSCOPY 01/27/2020 COLONOSCOPY 05/08/2021 COLONOSCOPY 08/26/2022 Next Appt Details Provider Name:Torres Olmos , 04/24/2025 12:40:00 PM, [address] [place] [address] , [place], [place], [id number], Insurance Providers Payer Name Payer Address Payer Phone Subscriber Number Group Number Insured Name Patient Relationship to Insured Coverage Start Date Coverage End Date [facility] [address] [place] [phone] [id number] LILLIAN MAYNARD Self - patient is the insured Medical (General) History Medical History History ICD Code PARANOID SCHIZOPHRENIA HYPERTENSION NIDDM HYPERLIPIDEMIA ELEVATED LIVER ENZYMES DYSPNEA FATIGUE OBESITY Denies [place],CVA,Lung disease,renal disease Screening colonoscopy in Oct revealed [...]
== END 2025-03-21 12:56 | disposition home or self-care (01) ==
LOC: HO.HMCH 12:21
PROVIDERS: PCP Internal Medicine; Visit Provider Internal Medicine
DX: Z00.00 Encounter for general adult medical examination without abnormal findings (principal); K42.9 Umbilical hernia without obstruction or gangrene; E11.9 Type 2 diabetes mellitus without complications; F20.0 Paranoid schizophrenia

== ENCOUNTER → 2025-03-21 12:20 | Outpatient (BNVA) | payer OTHER, SELFPAY | PROVIDERS: PCP Internal Medicine; Visit Provider Internal Medicine | DX: Z00.00 Encounter for general adult medical examination without abnormal findings (principal); E11.9 Type 2 diabetes mellitus without complications; K42.9 Umbilical hernia without obstruction or gangrene; F20.0 Paranoid schizophrenia; F41.9 Anxiety disorder, unspecified; R10.13 Epigastric pain; Z79.899 Other long term (current) drug therapy | CPT/HCPCS: 83036; 99212; 99396 ==

== ENCOUNTER 2025-03-27 09:02 | Outpatient (REF) | payer OTHER, SELFPAY ==
--- NOTE | ~2025-03-27 | US_ITS ---
CLINICAL HISTORY: K42.9 - Umbilical hernia without obstruction or gangrene Targeted ultrasound of umbilicus Comparison: None provided Technique: Targeted grayscale sonographic imaging to the area of interest of umbilicus was performed by the swing driver. Multiple medical detail representative static and cine images were saved for review. Findings: Umbilical hernia contains fat, hernia neck measures 1.0 cm. Surrounding soft tissue is unremarkable. Impression: Fat containing umbilical hernia. This document has been electronically signed by: Mariposa Mcginnis MD on 03/27/2025 15:07:40
--- OUTSIDE RECORDS SUMMARY | 2025-03-27 09:38 | XMS_ITS | Patient Health Record ---
Author Organization [facility] Address [address] [place] [address] Care Team Providers Care Alarm Installer Name Role Phone Krissy Morrison Primary Care Provider Torres Joyner Unavailable [phone] Allergies Allergen (clinical drug ingredient) Drug/Non Drug [...] Problem Status W/U Status Risk Notes Problem 961050841 Encounter for screening for malignant neoplasm of colon (Z12.11) Active confirmed Problem 918981070 History of adenomatous polyp of colon (Z86.010) Active confirmed Problem Diverticular disease of colon (855175303) Diverticulosis of large intestine without perforation or abscess without bleeding (K57.30) Active confirmed Problem 545191993 Preprocedural examination (Z01.818) Active confirmed Problem 717067028 Elevated liver enzymes (R74.8) Active confirmed Problem 835892441349306 Pre-procedural examination (Z01.818) Active confirmed Problem Diverticulosis of colon (068436567) Diverticulosis of colon (K57.30) Active confirmed Vital Signs Temperature 98.9 degrees Fahrenheit 02/01/2025 Blood pressure diastolic 01 mm Hg 02/01/2025 Height 70 in 02/01/2025 Blood pressure systolic 001 mm Hg 02/01/2025 Weight 256.4 lbs 02/01/2025 BMI 36.79 kg/m2 02/01/2025 Procedures Procedure Date Ordered Date Performed Result Body Sit e COLONOSCOPY 02/01/2025 N/A Encounters Encounter Location Date Provider Diagnosis [facility] [address] [place] [address] 02/01/2025 Torres Olmos Encounter for screen ing for malignant neoplasm of colon Z12.11 ; Preprocedural examination Z01.818 and History of adenomatous polyp of colon Z86.010 [facility] [address] [place] [address] 02/01/2025 Torres Olmos Assessments Encounter Date Diagnosis (ICD Code) Assessment [...] (PT, INR) 06/09/2017 HEPATITIS A,B,C PROFILE 06/09/2017 [id number] (A1A) 06/09/2017 CERULOPLASMIN 06/09/2017 MITOCHONDRIAL AB 06/09/2017 SMOOTH MUSCLE ANTIBODIES 06/09/2017 FLUOR. ANTINUCLEAR AB SCREEN (SASHA) 05/31 Future Test Test Name Order Date COLONOSCOPY 06/09/2017 COLONOSCOPY 06/25/2018 COLONOSCOPY 01/27/2020 COLONOSCOPY 05/08/2021 COLONOSCOPY 08/26/2022 Next Appt Details Provider Name:Torres Olmos , 04/24/2025 12:40:00 PM, [address] [place] [address] , [place], [place], [phone], Insurance Providers Payer Name Payer Address Payer Phone Subscriber Number Group Number Insured Name Patient Relationship to Insured Coverage Start Date Coverage End Date [facility] [address] [place] [phone] [id number] LILLIAN MAYNARD Self - patient is the insured Medical (General) History Medical History History ICD Code PARANOID SCHIZOPHRENIA HYPERTENSION NIDDM HYPERLIPIDEMIA ELEVATED LIVER ENZYMES DYSPNEA FATIGUE OBESITY Denies [place],CVA,Lung disease,renal disease Screening colonoscopy in Oct revealed [...]
--- OUTSIDE RECORDS SUMMARY | 2025-03-27 09:38 | XMS_ITS | Patient Health Record ---
[facility] Address [address] [place] [address] Care Team Providers Care Alteration Manager Name Role Phone Caron MUIR, Krissy Primary Care Provider Unavail able Pino Posey Unavailable [phone] Allergies Allergen (clinical drug ingredient) Drug/Non Drug [...] Problem Acquired hammer toe of right foot (384245963608 9105) Other hammer toe(s) (acquired), right foot (M20.41) Active confirmed Problem Acquired hammer toe of left foot (846952306158 9103) Other hammer toe(s) (acquired), left foot (M20.42) Active confirmed Problem Type 2 diabetes mellitus without complication (E11.9) Active confirmed Vital Signs Height 5' 10.5 in 08/04/2024 Weight 200 lbs lbs 08/04/2024 BMI 28.29 kg/m2 08/04/2024 Encounters Encounter Location Date Provider Diagnosis [facility] [address] [address] 08/04/2024 Pino Andersonunier Type 2 diabetes mellitus without complication E11.9 [...] Of Treatment Next Appt Details Provider Name:Pino Topete Kalpesh , 08/03/2025 01:30:00 PM, [address] [place] [address], [place], [address], Insurance Providers Payer Name Payer Address Payer Phone Subscriber Number Group Number Insured Name Patient Relationship to Insured Coverage Start Date Coverage End Date [facility] SCO Claims [address] [place] [address] [phone] [id number] Ganesh Trotter Self - patient is the insured Medical (General) History Medical History History ICD Code Anxiety covid-19 Chicken pox Depression type II diabetes Hypercholesterolemia
--- OUTSIDE RECORDS SUMMARY | 2025-03-27 09:38 | XMS_ITS | Clinical Summary ---
Author Organization [facility] ity Address [address] [place] [address] Care Team Providers Care Tree Cutter Name Role Phone Unavailable Primary Care Provider [...]
== END 2025-03-27 09:03 | disposition home or self-care (01) ==
LOC: HO.US 09:02
PROVIDERS: PCP Internal Medicine; Visit Provider Internal Medicine
DX: K42.9 Umbilical hernia without obstruction or gangrene (principal)
CPT/HCPCS: 76705

== ENCOUNTER → 2025-03-27 09:04 | Outpatient (BNV) | payer OTHER, SELFPAY | PROVIDERS: PCP Internal Medicine; Visit Provider Radiology Diagnostic Radiology | DX: K42.9 Umbilical hernia without obstruction or gangrene (principal) | CPT/HCPCS: 76705 ==

== ENCOUNTER 2025-04-24 11:17 | Day surgery (SDC) | payer OTHER, SELFPAY ==
--- OUTSIDE RECORDS SUMMARY | 2025-03-14 10:06 | XMS_ITS | Patient Health Record ---
Author Organization [facility] Address [address] [place] [address] Care Team Providers Care Cemetery Workers Supervisor Name Role Phone Krissy Morrison Primary Care Provider Torres Joyner Unavailable [phone] Allergies Allergen (clinical drug ingredient) Drug/Non Drug Allergy documented on EMR Reaction Allergy Type Onset Date Status simvastatin Simvastatin Unknown Drug Allergy Act kel valproate Depakote Unknown Drug Allergy Active Reason For Referral No Information Medications Medication SIG (Take, Route, Frequency, Duration) Notes Start Date End Date Status Lisinopril 20 MG 1 tablet Orally Once a day Active OXcarbazepine 300 MG 1 tablet Orally Twi ce a day for 30 day(s) 06/11/2021 Active Vitamin D-3 25 MCG (1000 UT) 1 capsule Orally Once a day Active SEROquel 300 MG 1 tablet at bedtime Orally Once a day for 30 days 06/11/2021 Active Topiramate 25 MG 1 tablet Orally Once a day Active Actos 45 MG 1 tablet Orally Once a day Active Semaglutide 14 MG 1 tablet at least 30 minutes before first food, beverage or other oral medicine of the day Orally Once a day Active Dicyclomine HCl Acti ve busPIRone HCl 5 MG 1 tablet Orally Twic e a day Active ZyPREXA 5 MG 1 tablet Orally Once a day for 30 day(s) 06/11/2021 Active Topamax Active OLANZapine 10 MG TAKE 1 TABLET BY BUDDY TH IN THE MORNING & TAKE 2 TABLETS AT BEDTIME Orally Once a day and 20 mg at bedtime Active Dulcolax (colon prep) 5 MG Take 2 tablet s 2 days before the colonoscopy and then take 2 at 3:00 p.m and 2 at 7:00p.m. the day before the colonoscopy Orally Two tablets 2 days before the colonoscopy, and then two tablets twice a day for one day before the colonoscopy for 2 days 02/02/2025 Active Atorvastatin Calcium 80 MG 1 tablet Oral ly Once a day Active Cogentin 1 MG/ML 1 ml Injection Once a day/EPS Active QUEtiapine Fumarate 200 MG TAKE 1 TABLET BY MOUTH AT BEDTIME Oral at bedtime with 50 mg taking in am Active MiraLax (colon prep) 17 GM/SCOOP 1/2 of a 238Gm bottle mixed with Gatorade 2 days before the colonoscopy, and then 1 full 238Gm bottle mixed with Gatorade or Crystal Light the day before the colonoscopy orally Do two days before the colonoscopy and then 1 day before the colonoscopy for 2 days 02/02/2025 Active OXcarbazepine 600 MG 1 tablet Orally Twi ce a day Active Immunizations Vaccine Route Administration Date Status Comme nts Influenza Unknown 05/31/2020 Administered Influenza Unknown 08/26/2022 Refused Influenza Unknown 02/01/2025 Refused Social History Tobacco Use: Social History [...] Problem Status W/U Status Risk Notes Problem 651630701 Encounter for screening for malignant neoplasm of colon (Z12.11) Active confirmed Problem 945800719 History of adenomatous polyp of colon (Z86.010) Active confirmed Problem Diverticulosis o f large intestine without perforation or abscess without bleeding (K57.30) Active confirmed Problem 896991088 Preprocedural examination (Z01.818) Active confirmed Problem 207150440 Elevated liver enzymes (R74.8) Active confirmed Problem 815081491053020 Pre-procedural examination (Z01.818) Active confirmed Problem Diverticulosis of colon (022511909) Diverticulosis of colon (K57.30) Active confirmed Vital Signs Temperature 98.9 degrees Fahrenheit 02/01/2025 Blood pressure diastolic 01 mm Hg 02/01/2025 Height 70 in 02/01/2025 Blood pressure systolic 001 mm Hg 02/01/2025 Weight 256.4 lbs 02/01/2025 BMI 36.79 kg/m2 02/01/2025 Procedures Procedure Date Ordered Date Performed Result Body Sit e COLONOSCOPY 02/01/2025 N/A Encounters Encounter Location Date Provider Diagnosis [facility] [address] [place] [address] 02/01/2025 Torres Amarilis Encounter for screen ing for malignant neoplasm of colon Z12.11 ; Preprocedural examination Z01.818 and History of adenomatous polyp of colon Z86.010 [facility] [address] [place] [address] 02/01/2025 Torres Amarilis Assessments Encounter Date Diagnosis (ICD Code) Assessment Notes Treatment Notes Treatment Clinical Notes Section Notes 02/01/2025 Encounter for screening for malignant neoplasm of colon (ICD-10 - Z12.11) Overall, Jeovany appears quite well. He is not having any new or worrisome GI complaints at this time. I did recommend a follow-up colonoscopy for further screening given the significant findings on his original colonoscopy, the history of tubular adenomas on all subsequent colonoscopies, and his last colonoscopy being over 2 years ago. We did review the rationale for this in regard to colon cancer prevention. Full consent has been obtained for this, including risks of bleeding and perforation. The procedure will be done with monitored anesthesia care. He was given the below instructions regarding adjustment of his medications for the procedure. Jeovany was comfortable with this plan. Thank you again for allowing me to participate in Lillian's care. I shall continue to keep you advised of his progress. 02/01/2025 Preprocedural examination (ICD-10 - Z01.818) Overall, Jeovany appears quite well. He is not having any new or worrisome GI complaints at this time. I did recommend a follow-up colonoscopy for further screening given the significant findings on his original colonoscopy, the history of tubular adenomas on all subsequent colonoscopies, and his last colonoscopy being over 2 years ago. We did review the rationale for this in regard to colon cancer prevention. Full consent has been obtained for this, including risks of bleeding and perforation. The procedure will be done with monitored anesthesia care. He was given the below instructions regarding adjustment of his medications for the procedure. Jeovany was comfortable with this plan. Thank you again for allowing me to participate in Lillian's care. I shall continue to keep you advised of his progress. 02/01/2025 History of adenomatous polyp of colon (ICD-10 - Z86.010) Overall, Jeovany appears quite well. He is not having any new or worrisome GI complaints at this time. I did recommend a follow-up colonoscopy for further screening given the significant findings on his original colonoscopy, the history of tubular adenomas on all subsequent colonoscopies, and his last colonoscopy being over 2 years ago. We did review the rationale for this in regard to colon cancer prevention. Full consent has been obtained for this, including risks of bleeding and perforation. The procedure will be done with monitored anesthesia care. He was given the below instructions regarding adjustment of his medications for the procedure. Jeovany was comfortable with this plan. Thank you again for allowing me to participate in Lillian's care. I shall continue to keep you advised of his progress. Plan Of Treatment Pending Test Test Name Order Date COLONOSCOPY 02/01/2025 LIVER PROFILE 06/09/2017 IRON + IBC (FE) 06/09/2017 FERRITIN 06/09/2017 CBC w DIFF 06/09/2017 PROTHROMBIN TIME (PT, INR) 06/09/2017 HEPATITIS A,B,C PROFILE 06/09/2017 [id number] (A1A) 06/09/2017 CERULOPLASMIN 06/09/2017 MITOCHONDRIAL AB 06/09/2017 SMOOTH MUSCLE ANTIBODIES 06/09/2017 FLUOR. ANTINUCLEAR AB SCREEN (SASHA) 05/31 Future Test Test Name Order Date COLONOSCOPY 06/09/2017 COLONOSCOPY 06/25/2018 COLONOSCOPY 01/27/2020 COLONOSCOPY 05/08/2021 COLONOSCOPY 08/26/2022 Next Appt Details Provider Name:Torres Olmos , 04/24/2025 12:40:00 PM, [address] [place] [address] , [place], [place], [phone], Insurance Providers Payer Name Payer Address Payer Phone Subscriber Number Group Number Insured Name Patient Relationship to Insured Coverage Start Date Coverage End Date [facility] [address] [place] [phone] [id number] LILLIAN MAYNARD Self - patient is the insured Medical (General) History Medical History History ICD Code PARANOID SCHIZOPHRENIA HYPERTENSION NIDDM HYPERLIPIDEMIA ELEVATED LIVER ENZYMES DYSPNEA FATIGUE OBESITY Denies [place],CVA,Lung disease,renal disease Screening colonoscopy in Oct revealed [...]
--- OUTSIDE RECORDS SUMMARY | 2025-03-14 10:06 | XMS_ITS | Clinical Summary ---
Author Organization [facility] ity Address [address] [place] [address] Care Team Providers Care Flatwork Catcher Name Role Phone Unavailable Primary Care Provider [...] 2023-2 5 season) 2024 Influenza Vaccine (#1) 2025 RSV Immunization Adult Patie nts (1 - 1-dose 75+ series) 2039 HIB [...] age to complete this topic Meningococcal B Vaccine Aged Out No l onger eligible based on patient's age to complete this topic Pneumococcal Vaccine: Pediat rics (0 to 5 Years) and At-Risk Patients (6 to 49 Years) Aged Out No longer eligible b ased on patient's age to complete this topic RSV Immunization Patients Un thee 20 months Aged Out No longer eligible b ased on patient's age to complete this topic Varicella Vaccines Aged Out No longer eligible based on patient's age to complete this topic
--- OUTSIDE RECORDS SUMMARY | 2025-03-14 10:07 | XMS_ITS | Patient Health Record ---
[facility] Address [address] [place] [address] Care Team Providers Care Oracle Database Analyst Name Role Phone Caron MUIR, Krissy Primary Care Provider Unavail able Pino Posey Unavailable [phone] Allergies Allergen (clinical drug ingredient) Drug/Non Drug [...] Problem Acquired hammer toe of right foot (391580108045078 5) Other hammer toe(s) (acquired), right foot (M20.41) Active confirmed Problem Acquired hammer toe of left foot (981212569111878 3) Other hammer toe(s) (acquired), left foot (M20.42) Active confirmed Problem Type II diabetes mellitus without complication (604912989) Type 2 diabetes mellitus without complication (E11.9) Active confirmed Vital Signs Height 5' 10.5 in 08/04/2024 Weight 200 lbs lbs 08/04/2024 BMI 28.29 kg/m2 08/04/2024 Encounters Encounter Location Date Provider Diagnosis [facility] [address] [address] 08/04/2024 Pino Posey Type 2 diabetes mellitus [...] Provider Name:Pino Posey , 08/03/2025 01:30:00 PM, [address] [place] [address], [place] [address], [place], [address], Insurance Providers Payer Name Payer Address Payer Phone Subscriber Number Group Number Insured Name Patient Relationship to Insured Coverage Start Date Coverage End Date [facility] SCO Claims [address] [place] [phone] [id number] Ganesh Trotter Self - patient is the insured Medical (General) History Medical History History ICD Code Anxiety covid-19 Chicken pox Depression type II diabetes Hypercholesterolemia
[2025-04-20 16:22] VITALS: BMI 36.8
--- NOTE | 2025-04-21 09:42 | HO.ANESPROP2 ---
Documented by User: Camila Arteaga NP 04/21/25 09:43 HPI - Anesthesia Eval Consult details Narrative: 59 yr old male for colonoscopy Type 2 DM: A1C 6.4% on 01/2024 labs Anesthesia Pre-Procedure Meds Is the patient on any of the following meds?: GLP1/DPP4 (on oral GLP-1) PMFSH Active Problems Active Problems: All Active Problems Umbilical hernia (Acute) Umbilical hernia (Acute) Physical exam (Acute) Mild major depression (Acute) Hypovitaminosis D (Acute) Obesity, Class I, BMI 30.0-34.9 (see actual BMI) (Acute) Obese (Acute) Paranoid schizophrenia (Acute) Pure hypercholesterolemia (Acute) Essential hypertension (Acute) Diabetes mellitus (Acute) Past Medical History Medical History Hx of colonic polyps History of iron deficiency anemia Obesity, Class I, BMI 30.0-34.9 (see actual BMI) Obese Paranoid schizophrenia Pure hypercholesterolemia Essential hypertension Diabetes mellitus Family History Family History Father Lung cancer Mother Diabetes mellitus Maternal Grandmother No problems noted. Maternal Grandfather No problems noted. Paternal Grandmother No problems noted. Paternal Grandmother No problems noted. Family history of problems with anesthesia: No Surgical History Surgical History Hx of colonoscopy History of oral surgery History of nasal surgery History of Problems with Anesthesia: No Social History Social History Housing: Apartment Alcohol intake: current Alcohol intake frequency: does not drink Alcohol type: wine Patient Tobacco Use Status: Never used Tobacco e-Cigarette/Vaping Use: Never Used Second Hand Smoke Exposure: No Have you been hit, kicked, punched, or otherwise hurt by someone within the past year? If so, by whom?: No Are you DNR?: No Advance Directives: No Advance Directives Information Provided: Yes service: No Current occupational status: disabled Cognitive needs: No Hearing needs: No Vision needs: Yes Meds Allergies Allergy/AdvReac Type Severity Reaction Status Date / Time simvastatin (SIMVASTATIN) Allergy Intermediate INCREASES Verified 04/20/25 16:19 LIVER ENZYMES, increase liver enzymes divalproex sodium (From AdvReac Intermediate BLOATING Verified 04/20/25 16:19 DEPAKOTE) metformin AdvReac Mild abdominal Verified 04/20/25 16:19 bloating Home Medications ?Medication ?Instructions ?Recorded ?Confirmed ?Last Taken ?Type buspirone 5 mg tablet 5 mg PO BID 08/21/20 04/20/25 11/14/22 History olanzapine 10 mg tablet 10 mg PO BID 08/21/20 03/21/25 11/14/22 History quetiapine 200 mg tablet 200 mg PO BEDTIME 08/21/20 04/20/25 11/13/22 History quetiapine 50 mg tablet (Seroquel) 50 mg PO QAM 08/21/20 04/20/25 11/14/22 History oxcarbazepine 600 mg tablet 600 mg PO BID 12/18/20 04/20/25 11/14/22 History topiramate 25 mg tablet 25 mg PO BID 04/24/21 04/20/25 11/14/22 History topiramate 100 mg tablet 1 tab PO BEDTIME 06/07/21 04/20/25 11/13/22 History semaglutide 14 mg tablet (Rybelsus) 14 mg PO DAILY 04/20/25 04/20/25 04/21/25 History Exam Height,Weight and Vital Signs: Height 5 ft 10 in Weight 116.233 kg Assessment and Plan Final Anesthetic Review Family History of Problems with Anesthesia: No History of Problems with Anesthesia: No Documented by User: Noel Johnson MD 04/24/25 13:16 [facility] Past Medical History Medical History Hx of colonic polyps History of iron deficiency anemia Obesity, Class I, BMI 30.0-34.9 (see actual BMI) Obese Paranoid schizophrenia Pure hypercholesterolemia Essential hypertension Diabetes mellitus Family History Family History Father Lung cancer Mother Diabetes mellitus Maternal Grandmother No problems noted. Maternal Grandfather No problems noted. Paternal Grandmother No problems noted. Paternal Grandmother No problems noted. Surgical History Surgical History Hx of colonoscopy History of oral surgery History of nasal surgery Social History Social History Housing: Apartment Alcohol intake: current Alcohol intake frequency: does not drink Alcohol type: wine Patient Tobacco Use Status: Never used Tobacco e-Cigarette/Vaping Use: Never Used Second Hand Smoke Exposure: No Have you been hit, kicked, punched, or otherwise hurt by someone within the past year? If so, by whom?: No Are you DNR?: No Advance Directives: No Advance Directives Information Provided: Yes service: No Current occupational status: disabled Cognitive needs: No Hearing needs: No Vision needs: Yes Meds Allergies Allergy/AdvReac Type Severity Reaction Status Date / Time simvastatin (SIMVASTATIN) Allergy Intermediate INCREASES Verified 04/20/25 16:19 LIVER ENZYMES, increase liver enzymes divalproex sodium (From AdvReac Intermediate BLOATING Verified 04/20/25 16:19 DEPAKOTE) metformin AdvReac Mild abdominal Verified 04/20/25 16:19 bloating Home Medications ?Medication ?Instructions ?Recorded ?Confirmed ?Last Taken ?Type buspirone 5 mg tablet 5 mg PO BID 08/21/20 04/20/25 11/14/22 History olanzapine 10 mg tablet 10 mg PO BID 08/21/20 03/21/25 11/14/22 History quetiapine 200 mg tablet 200 mg PO BEDTIME 08/21/20 04/20/25 11/13/22 History quetiapine 50 mg tablet (Seroquel) 50 mg PO QAM 08/21/20 04/20/25 11/14/22 History oxcarbazepine 600 mg tablet 600 mg PO BID 12/18/20 04/20/25 11/14/22 History topiramate 25 mg tablet 25 mg PO BID 04/24/21 04/20/25 11/14/22 History topiramate 100 mg tablet 1 tab PO BEDTIME 06/07/21 04/20/25 11/13/22 History semaglutide 14 mg tablet (Rybelsus) 14 mg PO DAILY 04/20/25 04/20/25 04/21/25 History Exam Airway Mallampati Class: III TM Dist: >3cm Neck ROM: Full Loose/Missing/Broken Teeth: No Heart: RRR Lungs: CTA Assessment and Plan Assessment Anesthesia Assessment: Anesthesia Plan Discussed and Chart Reviewed Final Anesthetic Review ASA Class: III Final Preanesthetic Review: No Changes in Pt Med Stat, Meds/Allgs Chart Reviewed, Consent Obtained/Reviewed and Anes Risks/Benef Reviewed Patient Risk: Low Procedure Risk: Low Anesthetic Plan Anesthetic Plan: MAC: Disposition: Standard PACU
[2025-04-24 11:30] VITALS: BP 141/81; PULSE 102; RESP 20; TEMP 36.6; O2SAT 97; BMI 37.0
[2025-04-24 11:38] LABS: Glucose, Whole Blood 131 mg/dL (60-115)
[2025-04-24] MEDS: Lactated Ringers 1,000 ML 100 ML IVCONT (11:48)
[2025-04-24 14:00] VITALS: BP 124/73; PULSE 76; RESP 22; TEMP 36.1; O2SAT 98
--- NOTE | 2025-04-24 14:02 | PM.OP ---
Brief Operative Note Date of Service: 04/24/25 Pre-op diagnosis: Screening Post-op diagnosis: other (Polyps) Procedure: Colonoscopy to the cecum with hot snare polypectomies x 4. Surgeon: Torres Olmos MD Anesthesia: MAC Was an Dance Hall Host/Hostess used for this Procedure?: No Estimated blood loss (mL): 0 Pathology: other (A. Ascending colon polyps) Condition: stable Disposition: PACU
[2025-04-24 14:05] VITALS: BP 121/83; PULSE 67; RESP 14; O2SAT 98
[2025-04-24 14:10] VITALS: BP 124/83; PULSE 69; RESP 15; O2SAT 96
[2025-04-24 14:15] VITALS: BP 123/80; PULSE 72; RESP 16; TEMP 36.2; O2SAT 96
--- NOTE | 2025-04-24 21:54 | OP_ITS ---
DATE OF SERVICE: 04/24/2025 SURGEON: Torres Olmos MD INDICATIONS: The patient presents for evaluation of personal history of tubular adenoma of the colon and need for colorectal cancer screening. Full consent has been obtained from him for this, including risks of bleeding and perforation. PREOPERATIVE DIAGNOSIS: POSTOPERATIVE DIAGNOSIS: PROCEDURE PERFORMED: Colonoscopy to the cecum with hot snare polypectomy x 4. ESTIMATED BLOOD LOSS: COMPLICATIONS: ANESTHESIA: Medication used, monitored anesthesia care. ASSISTANTS: SPECIMENS: PREOPERATIVE DIAGNOSES: Personal history of tubular adenomas of the colon and colorectal cancer screening. POSTOPERATIVE DIAGNOSES: Personal history of tubular adenomas of the colon and colorectal cancer screening, colon polyps, diverticulosis, and internal hemorrhoids. DESCRIPTION OF PROCEDURE: The patient was placed in the left lateral decubitus position. The digital rectal exam revealed no abnormalities. The Olympus video pediatric colonoscope was entered into the rectum and was advanced to the cecum with the assistance of 2 people pressing on his abdominal wall, both in the left lower quadrant and the right side of the abdomen. Once in the cecum, there was a fair amount of liquid stool, which had to be irrigated and suctioned away. Once that was done, I was able to achieve a good visualization of the cecum, including the appendiceal orifice, which appeared normal. The ileocecal valve was visualized and appeared normal. The scope was then slowly withdrawn assessing all mucosal surfaces carefully. Preparation throughout the colon was very good after his 2 day prep. However, there were still some areas of some stool layering on the mucosa in the ascending colon and descending colon with some solid stool in the sigmoid colon. All this was irrigated and suctioned away as best as possible. In the ascending colon, I visualized 4 polyps ranging in size from 8 to 12 mm. These were all appeared to be grossly adenomatous or serrated. These were all removed by hot snare polypectomy and recovered by suction. The polypectomy sites appeared clean, without any sign of residual polyp nor bleeding. I did not visualize any other polyps, colitis, nor angiodysplasia. There was a moderate amount of sigmoid diverticulosis. In the rectum, scope was retroflexed visualizing internal hemorrhoids, but no other pathology. The rectal mucosa appeared normal. The scope was straightened and withdrawn from the patient. He tolerated the procedure well and was returned to the recovery area in stable condition. IMPRESSION: 1. Colon polyps. 2. Diverticulosis. 3. Internal hemorrhoids. PLAN: The results of the pathology will be checked. Given his history and today's findings, I would recommend a repeat colonoscopy within 2 years. He was advised not to use any aspirin nor NSAIDs for 2 weeks. He will see me otherwise on a p.r.n. basis. MD TRENTON Haile/DOUGIE / [id number] MTDD
== END 2025-04-24 14:56 | disposition home or self-care (01) ==
PROVIDERS: PCP Internal Medicine; Visit Provider Internal Medicine
PROC: 0DJD8ZZ Inspection of Lower Intestinal Tract, Via Natural or Artificial Opening Endoscopic (ICD-10-PCS; CPT 45378; principal; 2025-04-24 12:40)
DX: Z12.11 Encounter for screening for malignant neoplasm of colon (principal); D12.2 Benign neoplasm of ascending colon; K57.30 Diverticulosis of large intestine without perforation or abscess without bleeding; K64.8 Other hemorrhoids; Z86.0101 Personal history of adenomatous and serrated colon polyps; E11.9 Type 2 diabetes mellitus without complications; I10 Essential (primary) hypertension; E78.00 Pure hypercholesterolemia, unspecified; F20.0 Paranoid schizophrenia; Z79.899 Other long term (current) drug therapy; Z79.02 Long term (current) use of antithrombotics/antiplatelets
CPT/HCPCS: 45385; 82947; 88305; J2003; J2250; J2704

== ENCOUNTER 2025-05-11 14:16 | Outpatient (AMB) | payer OTHER, SELFPAY ==
--- OUTSIDE RECORDS SUMMARY | 2025-01-03 09:40 | XMS_ITS ---
Author Organization [facility] Address [address] [place] [address] Care Team Providers Care Plywood Layup Line Back Feeder Name Role Phone Krissy Morrison Primary Care Provider Torres Joyner [phone] REASON FOR VISIT screening colonoscopy Encounters Encounter Location Date Provider Diagnosis [facility] [address] [place] [address] 01/03/2025 Torres Olmos Plan Of Treatment No Information Progress Notes * LILLIAN MAYNARD JDOB: [birth year] (59 yo M)Acc No.[id number]:01/03/2025 Progress Notes Patient: LILLIAN JOHNSON Provider: Adele Olmos MD :1965 A ge:59 Y S ex:Male Date:01/03/2025 Address:[address] [place], [place] [id number] Pcp:Krissy Engel Subjective: * Chief Complaints: * 1 . Screening colonoscopy. * Medical History: Objective: * Vitals: Assessment: Plan: * Treatment: * * The named appointment provid er may or may not be the originator of this progress note, and it is not deemed complete until electronically signed by the appointment provider. Sign off status: Pending * Provider: Adele Olmos MD Date: 0 01/03/2025 Generated for Kierrai ng/Famadisong/eTransmitting on: 0 05/11/2025 06:03 PM EDT
--- OUTSIDE RECORDS SUMMARY | 2025-04-24 08:40 | XMS_ITS ---
Author Organization [facility] Address [address] [place] [address] Care Team Providers Care Food Processing Chemist Name Role Phone Krissy Morrison Primary Care Provider Torres Joyner [phone] REASON FOR VISIT screening,hx polyps Encounters Encounter Location Date Provider Diagnosis [facility] [place] [facility] [place], [place] [id number] 04/24/2025 Torres Olmos Plan Of Treatment No Information Progress Notes * LILLIAN MAYNARD JDOB: [birth year] (59 yo M)Acc No.[id number]:04/24/2025 COLON WITH MAC Patient: LILLIAN JOHNSON Provider: Adele Olmos MD :1965 A ge:59 Y S ex:Male Date:04/24/2025 Address:[address] [place], [place] [id number] Pcp:Krissy Engel Subjective: * Chief Complaints: * [...] MD Date: 0 04/24/2025 Generated for Roma ng/Famadisong/eTransmitting on: 0 05/11/2025 06:03 PM EDT
--- NOTE | 2025-05-11 14:32 | A.OFFPC_ITS ---
Vital Signs 05/11/25 14:33 Height 5 ft 10 in Weight 242 lb 2 oz BMI 34.7 BP 132/64 Blood Pressure Location Lt brachial Position Sitting Pulse 90 Pulse Source Pulse Oximeter Temp 97.4 F Temp Source Temporal Artery Scan Pulse Oximetry (%) 96 Oxygen Delivery Method Room Air Intake Visit Reasons: Tore muscle on left knee Intake Note: Patient is here to follow up on Tore muscle of the left knee. Research Director Required: No Activity Director: Not Required per policy Accompanied by: Self / Same As Patient Allergies simvastatin (SIMVASTATIN) Allergy (Intermediate, Verified 05/11/25 14:33) INCREASES LIVER ENZYMES, increase liver enzymes divalproex sodium (From DEPAKOTE) Adverse Reaction (Intermediate, Verified 05/11/25 14:33) BLOATING metformin Adverse Reaction (Mild, Verified 05/11/25 14:33) abdominal bloating Tobacco use date assessed: 05/11/25 Dental Screening Dental Screen Date: 11/10/24 [facility] Medical History (Updated 03/27/25 @ 21:06 by Krissy Engel MD) Hx of colonic polyps History of iron deficiency anemia Obesity, Class I, BMI 30.0-34.9 (see actual BMI) Obese Paranoid schizophrenia Pure hypercholesterolemia Essential hypertension Diabetes mellitus Surgical History (Updated 05/11/25 @ 14:37 by LATRELL Vickers) Hx of colonoscopy History of oral surgery History of nasal surgery Family History Father Lung cancer Mother Diabetes mellitus Maternal Grandmother No problems noted. Maternal Grandfather No problems noted. Paternal Grandmother No problems noted. Paternal Grandmother No problems noted. Social History Housing: Apartment Alcohol intake: current Alcohol intake frequency: does not drink Alcohol type: wine Patient Tobacco Use Status: Never used Tobacco e-Cigarette/Vaping Use: Never Used Second Hand Smoke Exposure: No service: No Current occupational status: disabled Cognitive needs: No Hearing needs: No Vision needs: Yes Questionnaire PHQ-9 Over the last 2 weeks, how often have you been bothered by any of the following problems? 1. Little interest or pleasure in doing things: nearly every day 2. Feeling down, depressed, or hopeless: nearly every day 3. Trouble falling or staying asleep, or sleeping too much: not at all 4. Feeling tired or having little energy: nearly every day 5. Poor appetite or overeating: not at all 6. Feeling bad about yourself - or that you are a failure or have let yourself or your family down: not at all 7. Trouble concentrating on things, such as reading the newspaper or watching television: not at all 8. Moving or speaking so slowly that other people could have noticed. Or the opposite - being so fidgety or restless that you have been moving around a lot more than usual: not at all 9. Thoughts that you would be better off or of hurting yourself in some way: not at all Total score: 9 Depression Screening Interpretation: Positive Depression Screening Done: Yes Source: Developed by Drs. Torres Alarcon, Carline Quiñones, Umang Tinajero and colleagues, with an educational gianni from [employer]. Thrive Questionnaire Date Thrive assessed: 11/10/24 I am a: Patient What is your living situation today?: I have a steady place to live Within the past 12 months, did the food you bought not last and you didn't have the money to get more?: Never true Within the past 12 months, did you worry whether your food would run out before you got money to buy more?: Never true Do you have trouble paying for medicines?: No Do you have trouble getting transportation to medical appointments?: No Do you have trouble paying your heating and electricity bill?: No Do you have trouble taking care of your child, family member or friend?: No Do you have trouble with day-to-day activities such as bathing, preparing meals, shopping, managing finances, etc.?: No Are you currently unemployed and looking for a job?: No Are you interested in more education?: No Please select the resources that you would like help with: None Currently or been in a relationship where the following occur: No concerns reported THRIVE Score: 0 AUDIT C Alcohol Use Questionnaire (AUDIT-C) 1. How often do you have a drink containing alcohol?: Never Total Score: 0 ILYA-7 AMB Questionnaire ILYA-7 Date ILYA - 7 assessed: 03/13/25 Feeling nervous, anxious, or on edge: 0 = Not at all Not being able to stop or control worryin = Not at all Worrying too much about different things: 0 = Not at all Trouble relaxin = Not at all Being so restless that it is hard to sit still: 0 = Not at all Becoming easily annoyed or irritable: 0 = Not at all Feeling afraid as if something awful might happen: 0 = Not at all Total ILYA-7 score (0-4 normal; 5-9 mild; 10-14 moderate; 15-21 severe): 0 Source: Developed by Drs. Torres Alarcon, Carline Quiñones, Umang Tinajero and colleagues, with an educational gianni from [employer]. Physical exam (Primary Care) Vital Signs: Last Vital Signs Temp 97.4 F 05/11/25 14:33 Pulse 90 05/11/25 14:33 BP 132/64 05/11/25 14:33 Pulse Ox 96 05/11/25 14:33 Oxygen Delivery Method Room Air 05/11/25 14:33 BMI result Body Mass Index 34.7 Tobacco/Smoking Status: Tobacco use Status Tobacco use date assessed 05/11/25 05/11/25 14:38 Patient Tobacco Use Status Never used Tobacco 05/11/25 14:38 e-Cigarette/Vaping Use Never Used 05/11/25 14:38 PHQ-9: PHQ-9 Score PHQ-9: Total score 9 05/11/25 14:38 Depression Screening Interpretation: Positive Thrive Assessment: Date of Thrive Assessment Date Thrive assessed 11/10/24 05/11/25 14:38 Currently or been in a relationship where the following occur: No concerns reported Coding Level of Care Code Est Pt Level 4 (31725) Complex EM visit Add On G2211 Diagnoses Sprain of left knee S83.92XA Assessment & Plan Assessment & Plan (1) Sprain of left knee: Code(s): S83.92XA - Sprain of unspecified site of left knee, initial encounter Plan: History of Present Illness - The patient is a 59-year-old male presenting with left knee pain. - The pain began two weeks ago following a muscle strain, likely incurred while getting out of bed. - The pain has intensified over time, now significantly impacting his ability to walk. - He has been managing the pain with Tylenol and reports no bruising, with pain localized to the knee muscle. - The patient is retired and not engaged in any occupational activities. - Examination revealed fluid accumulation near the patella, attributed to inflammation from kneeling. Social History - The patient is retired and not currently employed. Review of Systems - Musculoskeletal: Reports left knee pain worsening over two weeks, denies bruising. Physical Exam General: Cooperative and healthy appearing Nutritional Appearance: Well nourished Orientation/consciousness: Patient oriented x3 Limitations: No limitations Head: Normal to inspection General: Appearance normal, both eyes and all related structures Neck: Normal visual inspection Chest: Normal palpation of entire chest wall Respiratory: Normal respiratory effort Neurology: Patient oriented x3 Results Plan 1. Left Knee Pain - Prescribed a prescription-strength anti-inflammatory medication to be taken once daily. - Recommended the use of a knee brace for support, especially when active. - Advised to rest and elevate the leg to reduce inflammation and pain. Discussion Notes I discussed with the patient that the left knee pain is likely due to a muscle strain and fluid collection near the patella, possibly from kneeling. I recommended a prescription-strength anti-inflammatory medication and the use of a knee brace. Rest and elevation of the leg were advised to aid recovery. Patient Instructions - Take the prescribed anti-inflammatory medication once daily. - Use the knee brace for support, especially when moving around. - Rest and keep the leg elevated to help reduce pain and swelling.
[2025-05-11 14:33] VITALS: BP 132/64; PULSE 90; TEMP 36.3; O2SAT 96; BMI 34.7
--- OUTSIDE RECORDS SUMMARY | 2025-05-11 18:03 | XMS_ITS | Patient Health Record ---
[facility] Organization [facility] Address [address] [place] [address] Care Team Providers Care Housecleaner Floor Name Role Phone Caron MUIR, Krissy Primary Care Provider Unavail able Pino Posey Unavailable [phone] Allergies Allergen (clinical drug ingredient) Drug/Non Drug [...] Problem Acquired hammer toe of right foot (437738746332163 5) Other hammer toe(s) (acquired), right foot (M20.41) Active confirmed Problem Acquired hammer toe of left foot (960569356719498 3) Other hammer toe(s) (acquired), left foot (M20.42) Active confirmed Problem Type II diabetes mellitus without complication (771512671) Type 2 diabetes mellitus without complication (E11.9) Active confirmed Vital Signs Height 5' 10.5 in 08/04/2024 Weight 200 lbs lbs 08/04/2024 BMI 28.29 kg/m2 08/04/2024 Encounters Encounter Location Date Provider Diagnosis [facility] [address] [address] 08/04/2024 Pino Posey Type 2 diabetes mellitus [...] Provider Name:Pino Posey , 08/03/2025 01:30:00 PM, [address] [place] [address], [place] [address], [place], [address], Insurance Providers Payer Name Payer Address Payer Phone Subscriber Number Group Number Insured Name Patient Relationship to Insured Coverage Start Date Coverage End Date [facility] [employer] Claims [address] [place] [phone] [id number] Ganesh Trotter Self - patient is the insured Medical (General) History Medical History History ICD Code Anxiety covid-19 Chicken pox Depression type II diabetes Hypercholesterolemia
--- OUTSIDE RECORDS SUMMARY | 2025-05-11 18:03 | XMS_ITS | Patient Health Record ---
Author Organization [facility] Address [address] [place] [address] Care Team Providers Care Single Wire Saw Operator Name Role Phone Krissy Morrison Primary Care Provider Torres Joyner [phone] Allergies Allergen (clinical drug ingredient) Drug/Non Drug Allergy documented on EMR Reaction Allergy Type Onset Date Status simvastatin Simvastatin Unknown Drug Allergy Act kel valproate Depakote Unknown Drug Allergy Active Results Component Value Reference Range Notes Glucose, Whole Blood Reviewed date:04/24/2025 10:58:40 PM Interpretation: Performing Lab:[facility], [address] [place] [phone] Notes/Report: Glucose, Whole Blood 131 60-115 mg/dL METER # : [id number] Pathology (Not yet reviewed by provider) Interpretation: Performing Lab:[facility], [address] [place] [phone] Notes/Report: Reason For Referral No Information Medications Medication [...] Problem Status W/U Status Risk Notes Problem 665345491 Encounter for screening for malignant neoplasm of colon (Z12.11) Active confirmed Problem 368137653 History of adenomatous polyp of colon (Z86.010) Active confirmed Problem Diverticular disease of colon (133256682) Diverticulosis of large intestine without perforation or abscess without bleeding (K57.30) Active confirmed Problem 217164408 Preprocedural examination (Z01.818) Active confirmed Problem 491850625 Elevated liver enzymes (R74.8) Active confirmed Problem [id number] Pre-procedural examination (Z01.818) Active confirmed Problem Diverticulosis of colon (904795774) Diverticulosis of colon (K57.30) Active confirmed Vital Signs Temperature 98.9 degrees Fahrenheit 02/01/2025 Blood pressure diastolic 01 mm Hg 02/01/2025 Height 70 in 02/01/2025 Blood pressure systolic 001 mm Hg 02/01/2025 Weight 256.4 lbs 02/01/2025 BMI 36.79 kg/m2 02/01/2025 Procedures Procedure Date Ordered Date Performed Result Body Sit e COLONOSCOPY 02/01/2025 N/A Encounters Encounter Location Date Provider Diagnosis [facility] Outpatient [address] [place] [id number] 04/24/2025 Torres Olmos [facility] [address] [place] [phone] 02/01/2025 Torres Olmos Encounter for screening for malignant neoplasm of colon Z12.11 ; Preprocedural examination Z01.818 and History of adenomatous polyp of colon Z86.010 [facility] [address] [place] [phone] 02/01/2025 Torres Olmos Assessments Encounter Date Diagnosis [...] (PT, INR) 06/09/2017 HEPATITIS A,B,C PROFILE 06/09/2017 [id number] (A1A) 06/09/2017 CERULOPLASMIN 06/09/2017 MITOCHONDRIAL AB 06/09/2017 SMOOTH MUSCLE ANTIBODIES 06/09/2017 FLUOR. ANTINUCLEAR AB SCREEN (SASHA) 05/31 Pathology 04/24/2025 Future Test Test Name Order Date COLONOSCOPY 06/09/2017 COLONOSCOPY 06/25/2018 COLONOSCOPY 01/27/2020 COLONOSCOPY 05/08/2021 COLONOSCOPY 08/26/2022 Insurance Providers Payer Name Payer Address Payer Phone Subscriber Number Group Number Insured Name Patient Relationship to Insured Coverage Start Date Coverage End Date [facility] [address] [place] [phone] [id number] LILLIAN MAYNARD Self - patient is the insured Medical (General) History Medical History History ICD Code PARANOID SCHIZOPHRENIA HYPERTENSION NIDDM HYPERLIPIDEMIA ELEVATED LIVER ENZYMES DYSPNEA FATIGUE OBESITY Denies [place],CVA,Lung disease,renal disease Screening colonoscopy in Oct revealed [...]
== END 2025-05-11 15:41 | disposition home or self-care (01) ==
LOC: HO.HMCH 14:17
PROVIDERS: PCP Internal Medicine; Visit Provider Internal Medicine
DX: S83.92XA Sprain of unspecified site of left knee, initial encounter (principal)

== ENCOUNTER → 2025-05-11 14:16 | Outpatient (BNVA) | payer OTHER, SELFPAY | PROVIDERS: PCP Internal Medicine; Visit Provider Internal Medicine | DX: S83.92XA Sprain of unspecified site of left knee, initial encounter (principal); X58.XXXA Exposure to other specified factors, initial encounter; Y93.9 Activity, unspecified; Y92.9 Unspecified place or not applicable; Y99.9 Unspecified external cause status; Z13.31 Encounter for screening for depression | CPT/HCPCS: 96127; 99212 ==

== ENCOUNTER 2025-06-05 12:25 | Outpatient (AMB) | payer OTHER, SELFPAY ==
--- OUTSIDE RECORDS SUMMARY | 2025-01-03 09:40 | XMS_ITS ---
Author Organization [facility] Address [address] [place] [address] Care Team Providers Care Cafeteria Worker Name Role Phone Krissy Morrison Primary Care Provider Torres Joyner [phone] REASON FOR VISIT screening colonoscopy Encounters Encounter Location Date Provider Diagnosis [facility] [address] [place] [address] 01/03/2025 Torres Olmos Plan Of Treatment No Information Progress Notes * LILLIAN MAYNARD JDOB: [birth year] (59 yo M)Acc No.[id number]:01/03/2025 Progress Notes Patient: LILLIAN JOHNSON Provider: Adele Olmos MD :1965 A ge:59 Y S ex:Male Date:01/03/2025 Address:[address] [place], [place] [phone] Pcp:Krissy Engel Subjective: * Chief Complaints: * [...] 0 01/03/2025 Generated for Kierrai ng/Famadisong/eTransmitting on: 1 02:46 PM EDT
--- OUTSIDE RECORDS SUMMARY | 2025-04-24 08:40 | XMS_ITS ---
Author Organization [facility] Address [address] [place] [address] Care Team Providers Care Master Control Operator Name Role Phone Krissy Morrison Primary Care Provider Torres Joyner [phone] REASON FOR VISIT screening,hx polyps Encounters Encounter Location Date Provider Diagnosis [facility] [place] [facility] [place], [place] [id number] 04/24/2025 Torres Olmos Plan Of Treatment No Information Progress Notes * LILLIAN MAYNARD JDOB: [birth year] (59 yo M)Acc No.[id number]:04/24/2025 COLON WITH MAC Patient: LILLIAN JOHNSON Provider: Adele Olmos MD :1965 A ge:59 Y S ex:Male Date:04/24/2025 Address:[address] [place], [place] [id number] Pcp:Krissy Engel Subjective: * Chief Complaints: * 1 . Screening,hx polyps. * Medical History: Objective: * Vitals: Assessment: Plan: * Treatment: * * The named appointment provid er may or may not be the originator of this progress note, and it is not deemed complete until electronically signed by the appointment provider. Sign off status: Pending * Provider: Adele Olmos MD Date: 0 04/24/2025 Generated for Roma baig/Fox/eTransmitting on: 1 02:47 PM EDT
--- NOTE | 2025-06-05 13:02 | MHC.OFFVIS ---
Vital Signs 06/05/25 13:09 Height 5 ft 10 in Weight 248 lb 6 oz BMI 35.6 Intake Visit Reasons: umbilical hernia Intake Note: This patient presents for an assessment for an umbilical hernia. Pt c/o; navel, reports no postprandial nausea or vomiting, reports no changes to bowel habits. DI: Abd/pelvis CT-03/27/2025 Spring Bender Required: No Accompanied by: Self / Same As Patient Allergies simvastatin (SIMVASTATIN) Allergy (Intermediate, Verified 06/05/25 13:06) INCREASES LIVER ENZYMES, increase liver enzymes divalproex sodium (From DEPAKOTE) Adverse Reaction (Intermediate, Verified 06/05/25 13:06) BLOATING metformin Adverse Reaction (Mild, Verified 06/05/25 13:06) abdominal bloating Medication List - Last Reconciled 06/05/25 by Rafael Funez MD atorvastatin 80 mg PO BEDTIME 90 days buspirone 5 mg PO BID cholecalciferol (vitamin D3) 50 mcg PO DAILY 90 days [diabetic shoes As directed ] dicyclomine 20 mg PO TID 90 days lancets Use 1 lancet twice a day lancets (OneTouch Delica Plus Lancet) Testing once a day as needed lisinopril 20 mg PO DAILY 90 days meloxicam 15 mg PO DAILY olanzapine 10 mg PO BID oxcarbazepine 600 mg PO BID pioglitazone (Actos) 45 mg PO DAILY 90 days quetiapine (Seroquel) 50 mg PO QAM quetiapine 200 mg PO BEDTIME semaglutide (Rybelsus) 14 mg PO DAILY topiramate 1 tab PO BEDTIME topiramate 25 mg PO BID HPI HPI umbilical hernia: Details: 59-year-old male referred for an umbilical hernia. He says he has noticed this lump to the right of his umbilicus whenever he coughs or does exertion. He denies any pain or tenderness. He denies any GI complaints he says. He has noticed this in the for about 2-3 months. He is morbidly obese. He also has history of diabetes, major depression, hypertension, hyperlipidemia and schizophrenia. [facility] Medical History (Updated 03/27/25 @ 21:06 by Krissy Engel MD) Hx of colonic polyps History of iron deficiency anemia Obesity, Class I, BMI 30.0-34.9 (see actual BMI) Obese Paranoid schizophrenia Pure hypercholesterolemia Essential hypertension Diabetes mellitus Surgical History (Updated 05/11/25 @ 14:37 by LATRELL Vickers) Hx of colonoscopy History of oral surgery History of nasal surgery Family History Father Lung cancer Mother Diabetes mellitus Maternal Grandmother No problems noted. Maternal Grandfather No problems noted. Paternal Grandmother No problems noted. Paternal Grandmother No problems noted. Social History Housing: Apartment Alcohol intake: current Alcohol intake frequency: does not drink Alcohol type: wine Patient Tobacco Use Status: Never used Tobacco e-Cigarette/Vaping Use: Never Used Second Hand Smoke Exposure: No service: No Current occupational status: disabled Cognitive needs: No Hearing needs: No Vision needs: Yes Review of Systems Const Denies chills and Denies fever(s) Card Denies chest pain, Denies dyspnea and Denies dyspnea on exertion Resp Denies cough, Denies dyspnea and Denies dyspnea on exertion GI Denies hematochezia and Denies change in bowel habits Denies hematuria and Denies difficulty urinating Musc Denies back pain and Denies limited range of motion Neuro Denies focal weakness and Denies convulsions Psych Denies depression and Denies mood swings Physical Exam Const General: comfortable and no acute distress Nutritional Appearance: obese Orientation/consciousness: patient oriented x3 Neck Neck: Yes no lymphadenopathy Resp Auscultation: clear to auscultation bilaterally Cardio Rhythm: regular rhythm GI Other: Periumbilical hernia to the right of the umbilicus, obvious with Valsalva, small, probably 2.5 cm Palpation (GI): Soft to palpation, nontender and no guarding Neuro General: patient oriented x3 Assessment & Plan Assessment & Plan (1) Umbilical hernia: Code(s): K42.9 - Umbilical hernia without obstruction or gangrene Category: Medical Plan I explained the technique of repair with possible mesh placement. I reviewed the risks including but not limited to bleeding, infections, bowel injury, recurrence, postop pain, poor healing, as well as the benefits and alternatives. I also explained to him what to expect postoperatively. He states that the hernia does not bother him at all and he wants to hold off on surgery for now. He did that he will come back to me if he decides to proceed. He understands the risk of incarceration and strangulation Coding Level of Care Code New Pt Level 3 (75298) Diagnoses Umbilical hernia K42.9
[2025-06-05 13:09] VITALS: BMI 35.6
--- OUTSIDE RECORDS SUMMARY | 2025-06-05 14:47 | XMS_ITS | Patient Health Record ---
Author Organization [facility] Address [address] [place] [address] Care Team Providers Care Craft Manager Name Role Phone Caron MUIR, Krissy Primary Care Provider Unavail able Pino Posey Unavailable [phone] Allergies Allergen (clinical drug ingredient) Drug/Non Drug [...] Problem Acquired hammer toe of right foot (948338298757028 5) Other hammer toe(s) (acquired), right foot (M20.41) Active confirmed Problem Acquired hammer toe of left foot (390908962827380 3) Other hammer toe(s) (acquired), left foot (M20.42) Active confirmed Problem Type II diabetes mellitus without complication (780284204) Type 2 diabetes mellitus without complication (E11.9) Active confirmed Vital Signs Height 5' 10.5 in 08/04/2024 Weight 200 lbs lbs 08/04/2024 BMI 28.29 kg/m2 08/04/2024 Encounters Encounter Location Date Provider Diagnosis [facility] [address] [phone] 08/04/2024 Pino Posey Type 2 diabetes mellitus [...] Provider Name:Pino Posey , 08/03/2025 01:30:00 PM, [address] [place] [address], [place] [address], [place], [address], Insurance Providers Payer Name Payer Address Payer Phone Subscriber Number Group Number Insured Name Patient Relationship to Insured Coverage Start Date Coverage End Date [facility] [employer] Claims [address] [place] [phone] [id number] Ganesh Trotter Self - patient is the insured Medical (General) History Medical History History ICD Code Anxiety covid-19 Chicken pox Depression type II diabetes Hypercholesterolemia
--- OUTSIDE RECORDS SUMMARY | 2025-06-05 14:47 | XMS_ITS | Clinical Summary ---
Author Organization [facility] Address [address] [place] [address] Care Team Providers Care Melting Furnace Skimmer Name Role Phone Unavailable Primary Care Provider [...] 2014 Zoster Vaccines (1 of 2) 2014 Depression Screening 08/31/2024 COVID-19 Vaccine (1 - 2023-2 5 season) 2025 Influenza Vaccine (#1) 2025 RSV Immunization Adult [...]
--- OUTSIDE RECORDS SUMMARY | 2025-06-05 14:47 | XMS_ITS | Patient Health Record ---
Author Organization [facility] Address [address] [place] [address] Care Team Providers Care Supervisor Denture Department Name Role Phone Krissy Morrison Primary Care Provider Torres Joyner [phone] Allergies Allergen (clinical drug ingredient) Drug/Non Drug Allergy documented on EMR Reaction Allergy Type Onset Date Status simvastatin Simvastatin Unknown Drug Allergy Act kel valproate Depakote Unknown Drug Allergy Active Results Component Value Reference Range Notes Glucose, Whole Blood Reviewed date:04/24/2025 10:58:40 PM Interpretation: Performing Lab:[facility], [address] [place] [phone] Notes/Report: Glucose, Whole Blood 131 60-115 mg/dL METER # : [id number] Pathology (Not yet reviewed by provider) Interpretation: Performing Lab:[facility], [address] [place] [phone] Notes/Report: Reason For Referral No Information Medications [...] Problem Status W/U Status Risk Notes Problem 432344947 Encounter for screening for malignant neoplasm of colon (Z12.11) Active confirmed Problem 955403808 History of adenomatous polyp of colon (Z86.010) Active confirmed Problem Diverticular disease of colon (510321471) Diverticulosis of large intestine without perforation or abscess without bleeding (K57.30) Active confirmed Problem 382557712 Preprocedural examination (Z01.818) Active confirmed Problem 375805785 Elevated liver enzymes (R74.8) Active confirmed Problem 127366644482316 Pre-procedural examination (Z01.818) Active confirmed Problem Diverticulosis of colon (705297215) Diverticulosis of colon (K57.30) Active confirmed Vital Signs Temperature 98.9 degrees Fahrenheit 02/01/2025 Blood pressure diastolic 01 mm Hg 02/01/2025 Height 70 in 02/01/2025 Blood pressure systolic 001 mm Hg 02/01/2025 Weight 256.4 lbs 02/01/2025 BMI 36.79 kg/m2 02/01/2025 Procedures Procedure Date Ordered Date Performed Result Body Sit e COLONOSCOPY 02/01/2025 N/A Encounters Encounter Location Date Provider Diagnosis [facility] Outpatient [address] [place] [phone] 04/24/2025 Torres Olmos [facility] [address] [place] [phone] 02/01/2025 Torres Olmos Encounter for screening for malignant neoplasm of colon Z12.11 ; Preprocedural examination Z01.818 and History of adenomatous polyp of colon Z86.010 [facility] [address] [place] [phone] 02/01/2025 Torres Olmos Assessments Encounter Date Diagnosis [...] (PT, INR) 06/09/2017 HEPATITIS A,B,C PROFILE 06/09/2017 [id number] (A1A) 06/09/2017 CERULOPLASMIN 06/09/2017 MITOCHONDRIAL AB 06/09/2017 SMOOTH MUSCLE ANTIBODIES 06/09/2017 FLUOR. ANTINUCLEAR AB SCREEN (SASHA) 05/31 Pathology 04/24/2025 Future Test Test Name Order Date COLONOSCOPY 06/09/2017 COLONOSCOPY 06/25/2018 COLONOSCOPY 01/27/2020 COLONOSCOPY 05/08/2021 COLONOSCOPY 08/26/2022 Insurance Providers Payer Name Payer Address Payer Phone Subscriber Number Group Number Insured Name Patient Relationship to Insured Coverage Start Date Coverage End Date [facility] [address] [place] [phone] [id number] LILLIAN MAYNARD Self - patient is the insured Medical (General) History Medical History History ICD Code PARANOID SCHIZOPHRENIA HYPERTENSION NIDDM HYPERLIPIDEMIA ELEVATED LIVER ENZYMES DYSPNEA FATIGUE OBESITY Denies [place],CVA,Lung disease,renal disease Screening colonoscopy in Oct revealed [...]
== END 2025-06-05 13:23 | disposition home or self-care (01) ==
LOC: HO.HGS 12:26
PROVIDERS: PCP Internal Medicine; Visit Provider Surgery
DX: K42.9 Umbilical hernia without obstruction or gangrene (principal)
CPT/HCPCS: 99203

== ENCOUNTER → 2025-06-05 12:25 | Outpatient (BNVA) | payer OTHER, SELFPAY | PROVIDERS: PCP Internal Medicine; Visit Provider Surgery | DX: K42.9 Umbilical hernia without obstruction or gangrene (principal) | CPT/HCPCS: 99202 ==

== ENCOUNTER 2025-07-24 13:05 | Outpatient (AMB) | payer OTHER, SELFPAY ==
[2025-07-24 14:31] VITALS: BP 134/78; PULSE 81; O2SAT 97; BMI 35.6
--- NOTE | 2025-07-24 14:31 | A.OFFPC_ITS ---
Vital Signs 07/24/25 14:31 Height 5 ft 10 in Weight 248 lb BMI 35.6 BP 134/78 Blood Pressure Location Lt brachial Position Sitting Pulse 81 Pulse Source Pulse Oximeter Pulse Oximetry (%) 97 Oxygen Delivery Method Room Air Intake Visit Reasons: Follow Up- repeat A1C needed Reheater Helper Required: No Accompanied by: Self / Same As Patient Allergies simvastatin (SIMVASTATIN) Allergy (Intermediate, Verified 07/24/25 14:48) INCREASES LIVER ENZYMES, increase liver enzymes divalproex sodium (From DEPAKOTE) Adverse Reaction (Intermediate, Verified 07/24/25 14:48) BLOATING metformin Adverse Reaction (Mild, Verified 07/24/25 14:48) abdominal bloating Medication List - Last Reconciled 07/24/25 by Krissy Engel MD atorvastatin 80 mg PO BEDTIME 90 days blood sugar diagnostic (FreeStyle Lite Strips) As directed to test BS once per day buspirone 5 mg PO BID cholecalciferol (vitamin D3) 50 mcg PO DAILY 90 days [diabetic shoes As directed ] dicyclomine 20 mg PO TID 90 days lancets Use 1 lancet twice a day lancets (OneTouch Delica Plus Lancet) Testing once a day as needed lisinopril 20 mg PO DAILY 90 days meloxicam 15 mg PO DAILY olanzapine 10 mg PO BID oxcarbazepine 600 mg PO BID pioglitazone (Actos) 45 mg PO DAILY 90 days quetiapine (Seroquel) 50 mg PO QAM quetiapine 200 mg PO BEDTIME semaglutide (Rybelsus) 14 mg PO DAILY topiramate 1 tab PO BEDTIME topiramate 25 mg PO BID Tobacco use date assessed: 07/24/25 Dental Screening Dental Screen Date: 07/24/25 Did you have a dental visit in the last 12 months?: Yes Did you have a dental problem in the last 6 months where you did not have access to dental care?: No Was dental information given to patient?: Patient has dentist HPI HPI Comments History of Present Illness Details The patient is a 59 year old individual presenting for a follow-up on diabetes and other chronic conditions. The patient has a history of type 2 milan betes, with the last hemoglobin A1c in February reported as 6.4% and a fasting blood glucose of 136 mg/dL. A1c of 6.6% today. Regarding cardiovascular history, the patient has hypertension with a blood pressure reading of 134/78 mmHg during this visit, managed with lisinopril. The patient also has hyperlipidemia managed with atorvastatin 80 mg, with a previous LDL level of 60 mg/dL. In terms of gastrointestinal history, a recent colonoscopy revealed tubular adenoma polyps, with a recommendation for a repeat procedure in two years. The patient also experiences dyspepsia or abdominal discomfort, for which the patient takes dicyclomine. The patient expressed concern about pancreatic cancer, but has no associated symptoms. The patient's psychiatric history includes paranoid schizophrenia and anxiety, for which the patient is followed by a psychiatrist and takes buspirone, olanzapine, oxcarbazepine, Seroquel, and Topamax. Known medication allergies include simvastatin, which caused increased liver enzymes, as well as Depakote and metformin, which cause bloating. The patient has never smoked tobacco and drinks wine occasionally, about four times a month. The patient declined this year's influenza vaccination. [facility] Medical History Hx of colonic polyps History of iron deficiency anemia Obesity, Class I, BMI 30.0-34.9 (see actual BMI) Obese Paranoid schizophrenia Pure hypercholesterolemia Essential hypertension Diabetes mellitus Surgical History Hx of colonoscopy History of oral surgery History of nasal surgery Family History Father Lung cancer Mother Diabetes mellitus Maternal Grandmother No problems noted. Maternal Grandfather No problems noted. Paternal Grandmother No problems noted. Paternal Grandmother No problems noted. Social History (Updated 07/24/25 @ 14:56 by Krissy Engel MD) Housing: Apartment Alcohol intake: current Alcohol intake frequency: does not drink Alcohol type: wine Patient Tobacco Use Status: Never used Tobacco e-Cigarette/Vaping Use: Never Used Second Hand Smoke Exposure: No service: No Current occupational status: disabled Cognitive needs: No Hearing needs: No Vision needs: Yes Questionnaire PHQ-9 Over the last 2 weeks, how often have you been bothered by any of the following problems? 1. Little interest or pleasure in doing things: nearly every day 2. Feeling down, depressed, or hopeless: nearly every day 3. Trouble falling or staying asleep, or sleeping too much: not at all 4. Feeling tired or having little energy: nearly every day 5. Poor appetite or overeating: not at all 6. Feeling bad about yourself - or that you are a failure or have let yourself or your family down: not at all 7. Trouble concentrating on things, such as reading the newspaper or watching television: not at all 8. Moving or speaking so slowly that other people could have noticed. Or the opposite - being so fidgety or restless that you have been moving around a lot more than usual: not at all 9. Thoughts that you would be better off or of hurting yourself in some way: not at all Total score: 9 Depression Screening Interpretation: Positive Depression Screening Follow-up: Existing condition, In treatment, Community Mental Health Worker F/U and Follow- up Visit Requested Depression Screening Done: Yes 52774 - PHQ-9 Billing: Yes Source: Developed by Drs. Torres Alarcon, Carline Quiñones, Umang Tinajero and colleagues, with an educational gianni from [email or web address]. Thrive Questionnaire Date Thrive assessed: 07/24/25 I am a: Patient What is your living situation today?: I have a steady place to live Within the past 12 months, did the food you bought not last and you didn't have the money to get more?: Never true Within the past 12 months, did you worry whether your food would run out before you got money to buy more?: Never true Do you have trouble paying for medicines?: No Do you have trouble getting transportation to medical appointments?: No Do you have trouble paying your heating and electricity bill?: No Do you have trouble taking care of your child, family member or friend?: No Do you have trouble with day-to-day activities such as bathing, preparing meals, shopping, managing finances, etc.?: No Are you currently unemployed and looking for a job?: No Are you interested in more education?: No Please select the resources that you would like help with: None Currently or been in a relationship where the following occur: No concerns reported THRIVE Score: 0 AUDIT C Alcohol Use Questionnaire (AUDIT-C) 1. How often do you have a drink containing alcohol?: 2-4 times a month 2. How many drinks containing alcohol do you have on a typical day when you are drinking?: 1 or 2 3. How often do you have six or more drinks on one occasion?: Never Total Score: 2 Score Reviewed/Action Taken: No ILYA-7 AMB Questionnaire ILYA-7 Date ILYA - 7 assessed: 07/24/25 Feeling nervous, anxious, or on edge: 0 = Not at all Not being able to stop or control worryin = Not at all Worrying too much about different things: 0 = Not at all Trouble relaxin = Not at all Being so restless that it is hard to sit still: 0 = Not at all Becoming easily annoyed or irritable: 0 = Not at all Feeling afraid as if something awful might happen: 0 = Not at all Total ILYA-7 score (0-4 normal; 5-9 mild; 10-14 moderate; 15-21 severe): 0 Source: Developed by Drs. Torres Alarcon, Carline Quiñones, Umang Tinajero and colleagues, with an educational gianni from [email or web address]. ILYA-7 Assessment Billing ILYA-7 Assessment Tool: ILYA-7 Assessment 76926 Review of Systems Const All systems reviewed & are unremarkable except as noted in HPI and below Card Denies chest pain at rest, Denies chest pain with activity, Denies edema, Denies irregular heart rhythm, Denies claudication, Denies dyspnea, Denies dyspnea on exertion, Denies orthopnea, Denies paroxysmal nocturnal dyspnea and Denies slow heart rate Resp Denies cough, Denies dyspnea and Denies dyspnea on exertion GI Denies abdominal pain, Denies change in bowel habits, Denies excessive flatus, Denies nausea and Denies vomiting Physical exam (Primary Care) Vital Signs: Last Vital Signs Pulse 81 07/24/25 14:31 BP 134/78 07/24/25 14:31 Pulse Ox 97 07/24/25 14:31 Oxygen Delivery Method Room Air 07/24/25 14:31 BMI result Body Mass Index 35.6 BMI Assessment/Plan discussion: High BMI High, discussed plan: lifestyle, weight reduction, dietary and physical activity Tobacco/Smoking Status: Tobacco use Status Tobacco use date assessed 07/24/25 07/24/25 14:37 Patient Tobacco Use Status Never used Tobacco 07/24/25 14:37 e-Cigarette/Vaping Use Never Used 07/24/25 14:37 PHQ-9: PHQ-9 Score PHQ-9: Total score 9 07/24/25 14:37 Depression Screening Interpretation: Positive Depression Screening Follow-up: Existing condition, In treatment, Community Mental Health Worker F/U and Follow- up Visit Requested Thrive Assessment: Date of Thrive Assessment Date Thrive assessed 07/24/25 07/24/25 14:37 Currently or been in a relationship where the following occur: No concerns reported Resp Effort & Inspection: normal respiratory effort Auscultation: clear to auscultation bilaterally Cardio Jugular venous distension: no JVD Rate: regular rate Rhythm: regular rhythm Heart sounds: S1 normal heart sound present and S2 normal heart sound present Extrem General: Yes full ROM Coding Level of Care Code Est Pt Level 4 (72935) Complex visit Add On G2211 Diagnoses Type 2 diabetes mellitus without complication, without long-term current use of insulin E11.9 Diabetes mellitus type: type 2 Diabetes mellitus chcf insulin use: without superintendent terminal use Diabetes mellitus complication status: without complication Essential hypertension I10 Pure hypercholesterolemia E78.00 Mild major depression F32.0 Paranoid schizophrenia F20.0 Additional Codes PHQ-9 - 83883 - PHQ-9 Billing: Yes ([id number]) ILYA-7 Assessment Billing - ILYA-7 Assessment Tool: ILYA-7 Assessment 70369 ([id number]) Time Spent (min) 23 Assessment & Plan Assessment & Plan (1) Diabetes mellitus: Code(s): E11.9 - Type 2 diabetes mellitus without complications Category: Medical Qualifiers: Diabetes mellitus type: type 2 Diabetes mellitus superintendent terminal insulin use: without superintendent terminal use Diabetes mellitus complication status: without complication Qualified Code(s): E11.9 - Type 2 diabetes mellitus without complications (2) Essential hypertension: Code(s): I10 - Essential (primary) hypertension Category: Medical (3) Pure hypercholesterolemia: Code(s): E78.00 - Pure hypercholesterolemia, unspecified Category: Medical (4) Mild major depression: Code(s): F32.0 - Major depressive disorder, single episode, mild Category: Medical (5) Paranoid schizophrenia: Code(s): F20.0 - Paranoid schizophrenia Category: Medical Plan Plan 1. Type 2 Diabetes Mellitus The patient's diabetes is well-controlled, with a recent hemoglobin A1c of 6.4%, which is within the target of less than 7%. Today, an A1c test will be performed. Current medications, including Rybelsus and Actos, will be continued. Labs will be rechecked in four months. 2. Hyperlipidemia The patient's hyperlipidemia is well-managed with atorvastatin 80 mg, with a last LDL level of 60 mg/dL, meeting the goal of less than 70 mg/dL. The plan is to continue the current medication and recheck labs in four months. 3. Hypertension The patient's blood pressure is well-controlled at 134/78 mmHg on lisinopril. The plan is to continue the current medication regimen. 4. History Of Colonic Polyps The patient recently had a colonoscopy that identified tubular adenoma polyps. The plan is to follow the zyglo inspector's recommendation for a repeat colonoscopy in two years, in 2026. 5. Psychiatric Disorders The patient has a history of paranoid schizophrenia and anxiety, managed under the care of a psychiatrist with medications including buspirone, olanzapine, oxcarbazepine, Seroquel, and Topamax. The plan is to continue the current psych iatric care and medication regimen, with refills managed by the nursing staff. 6. Health Maintenance The patient inquired about screening for pancreatic cancer; however, as the patient is asymptomatic, screening is not indicated at this time. The patient declined the influenza vaccine. A follow-up appointment will be scheduled in four months. Orders: Orders Microalbumin, Random (w Creat) 4 Months R80.9 - Proteinuria, unspecified Comprehensive Rock. Panel Fast 4 Months E11.9 - Type 2 diabetes mellitus without complications Lipid Panel 4 Months E78.5 - Hyperlipidemia, unspecified Vitamin D 25-OH Total 4 Months E55.9 - Vitamin D deficiency, unspecified
--- OUTSIDE RECORDS SUMMARY | 2025-07-24 17:41 | XMS_ITS | Clinical Summary ---
[facility] Address [address] [place] [address] Care Team Providers Care Batch Attendant Name Role Phone Unavailable Primary Care Provider [...] Depression Screening 08/31/2024 COVID-19 Vaccine (1 - 2024-2 6 season) 2025 Influenza Vaccine (#1) 2025 RSV [...]
== END 2025-07-24 15:08 | disposition home or self-care (01) ==
LOC: HO.HMCH 13:05
PROVIDERS: PCP Internal Medicine; Visit Provider Internal Medicine
DX: E11.9 Type 2 diabetes mellitus without complications (principal); F20.0 Paranoid schizophrenia; I10 Essential (primary) hypertension; E78.00 Pure hypercholesterolemia, unspecified; F32.0 Major depressive disorder, single episode, mild

== ENCOUNTER → 2025-07-24 13:05 | Outpatient (BNVA) | payer OTHER, SELFPAY | PROVIDERS: PCP Internal Medicine; Visit Provider Internal Medicine | DX: E11.9 Type 2 diabetes mellitus without complications (principal); I10 Essential (primary) hypertension; F20.0 Paranoid schizophrenia; F41.9 Anxiety disorder, unspecified; E78.00 Pure hypercholesterolemia, unspecified; F32.0 Major depressive disorder, single episode, mild | CPT/HCPCS: 96127; 99212 ==